=== PATIENT | female | born 1945 | race African-American/Black ===

== ENCOUNTER 2016-09-22 21:05 | Inpatient (IN) | payer OTHER, MEDICARE ==
[~2016-09-22] VITALS: Ht 157.5 cm; Wt 80.7 kg
[~2016-09-22 21:05] MED LIST: AMLODIPINE10 MG PO; CLARITIN10 MG PO; NAPHCON A 0.02515 ML OPH; PEPCID20 MG PO; PREDNISONE 20MG20 MG PO; SIMVASTATIN20 MG PO; [UNRECOGNIZED DRUG - OTHER] PO
--- NOTE | 2016-09-22 21:34 | NUR ---
PT TO ED C/O PALPITATIONS AND LIGHTHEADEDNESS. ONSET 2 HOURS AGO. UPON ARRIVAL PT A+OX4, TAKEN TO 2 FOR TRIAGE. HR 90'S-150'S.
[2016-09-22] MEDS ORDERED: AMLODIPINE BESY10 M1 PO (21:39)
[2016-09-22] MEDS ORDERED: HYDROCHLOROTHIA25 M1 PO (21:39)
[2016-09-22] MEDS ORDERED: SIMVASTATIN20 M2 PO (21:39)
--- NOTE | 2016-09-22 21:48 | ED CARDIAC/CP/PALPITATIONS ---
History of Present Illness General Chief Complaint: General Adult Stated Complaint: WEAKNESS/PALPITATIONS Source: patient Exam Limitations: no limitations Vital Signs & Intake/Output Vital Signs & Intake/Output Vital Signs Date Time Temp Pulse Resp B/P Pulse O2 O2 Flow FiO2 Ox Delivery Rate 09/22 2217 82 130/64 09/22 2199 90 147/67 09/22 2129 97 Room Air 09/22 2122 99 12 147 97 Room Air Allergies Coded Allergies: MDX - Iodine (IODINE) (SWELLING 09/22/16) MDX - Shellfish (SHELLFISH) (SWELLING 09/22/16) Reconcile Medications Amlodipine Besylate (Amlodipine) 10 MG TAB 1 TAB PO DAILY HEART (Reported) Amlodipine Besylate 10 MG TABLET 1 TAB PO DAILY DIRECTED (Reported) Hydrochlorothiazide 25 MG TABLET 1 TAB PO DAILY DIRECTED (Reported) Simvastatin (Zocor) 20 MG TAB 1 TAB PO QPM CHOLESTEROL (Reported) Simvastatin (Simvastatin*) 20 MG TABLET 1 TAB PO QPM DIRECTED (Reported) Triage Note: PT TO ED C/O PALPITATIONS AND LIGHTHEADEDNESS. ONSET 2 HOURS AGO. UPON ARRIVAL PT A+OX4, TAKEN TO [facility] FOR TRIAGE. HR 90'S-150'S. Triage Nurses Notes Reviewed? yes Onset: Abrupt Duration: hour(s): (2), intermittent Timing: recent history Location: central Radiation: no radiation HPI: 71-year-old female comes into emergency room with complaints of intermittent palpitations has been going on for the past few hours. Patient reports that she feels like her heart is beating very fast and irregular and then will go back to normal. Denies any chest pain but has some associated shortness of breath. Denies any fever chills vomiting. Denies any prior cardiac history. Denies any prior symptoms of this in the past. Denies any other associated symptoms. (NURYS FISCHER) Past History Travel History Traveled to [place] past 21 day No Medical History Any Pertinent Medical History? see below for history Neurological: NONE EENT: NONE Cardiovascular: hypertension, hyperlipidemia Respiratory: asthma Gastrointestinal: GERD Hepatic: NONE Renal: NONE Musculoskeletal: SCOLOISIS Psychiatric: NONE Endocrine: NONE Blood Disorders: DVT Cancer(s): NONE SKEIN DYER/Reproductive: NONE Other Medical Hx: Eczema Surgical History Surgical History: SPINAL SURGERY (DVT AFTER Psychosocial History What is your primary language Greek Tobacco Use: Quit >30 days ago ETOH Use: denies use Illicit Drug Use: denies illicit drug use Family History Hx Contributory? No (NURYS FISCHER) Review of Systems Review of Systems Constitutional: Reports: no symptoms. EENTM: Reports: no symptoms. Respiratory: Reports: see HPI. Cardiovascular: Reports: see HPI. GI: Reports: no symptoms. Genitourinary: Reports: no symptoms. Musculoskeletal: Reports: no symptoms. Skin: Reports: no symptoms. Neurological/Psychological: Reports: no symptoms. Hematologic/Endocrine: Reports: no symptoms. Immunologic/Allergic: Reports: no symptoms. All Other Systems: Reviewed and Negative (NURYS FISCHER) Physical Exam Physical Exam General Appearance: well developed/nourished, no apparent distress, alert Head: atraumatic, normal appearance Eyes: Bilateral: normal appearance, EOMI. Ears, Nose, Throat: normal pharynx, normal ENT inspection Neck: normal inspection, full range of motion Respiratory: normal breath sounds, no respiratory distress Cardiovascular: regular rate/rhythm Gastrointestinal: normal bowel sounds Back: normal inspection Extremities: normal inspection Neurologic/Psych: awake, alert, oriented x 3, normal gait, normal mood/affect Skin: intact, normal color Core Measures ACS in differential dx? No Severe Sepsis Present: No Septic Shock Present: No (NURYS FISCHER) Progress Differential Diagnosis: AMI, aortic dissection, atrial fibrillation, cholecystitis, CHF/pulm edema, hyperkalemia, hyperthyroid, myocarditis, pancreatitis, pericarditis, pneumothorax, PSVT, pulmonary embolism, PUD/GERD, PVCs/PACs, respiratory failure, rib fracture, sepsis, unstable angina, V-fib/V- Tach, WPW syndrome Plan of Care: Orders Procedure Date/time Status Patient Data 09/22 2326 Active Add-on Test (ER Only) 09/22 2306 Active Admit to inpatient 09/22 230 Active THYROID STIMULATING HORMONE 09/22 2143 Complete PARTIAL THROMBOPLASTIN TIME 09/22 2143 Complete PROTHROMBIN TIME 09/22 2143 Complete EKG 09/22 2141 Active Telemetry/Driver Guide 09/22 2122 Active TROPONIN LEVEL 09/22 2122 Complete COMPREHENSIVE METABOLIC PANEL 09/22 2122 Complete CBC WITHOUT DIFFERENTIAL 09/22 2122 Complete EKG 09/22 2112 Active Current Medications Sig/Zoila Start time Last Medication Dose Stop Time Status Admin Diltiazem HCl 30 MG ONCE ONE 09/22 2314 UNVr (Cardizem) 09/22 2315 Heparin Sodium 5,000 UNIT ONCE ONE 09/22 2314 UNVr (Porcine) 09/22 2315 (Heparin Bolus) Heparin Sodium 25,000 UNIT Q24H 09/22 2314 UNVr (Porcine) (Heparin) Sodium Chloride 500 ML Laboratory Tests 09/22/162143: Anion Gap 13, Estimated GFR > 60, BUN/Creatinine Ratio 20.0, Glucose 138 H, Calcium 9.3, Total Bilirubin 0.3, AST 28, ALT 27, Alkaline Phosphatase 94, Troponin I < 0.01, Total Protein 7.9, Albumin 4.3, Globulin 3.6, Albumin/ Globulin Ratio 1.2, TSH 0.468, PT 11.6, INR 1.11, APTT 38 H, CBC w Diff NO MAN DIFF REQ, RBC 4.59, MCV 90.7, MCH 29.8, RDW 13.9, MPV 8.6, Gran % 61.1, Lymphocytes % 30.6, Monocytes % 6.2, Eosinophils % 1.6, Basophils % 0.5, Absolute Granulocytes 4.6, Absolute Lymphocytes 2.3, Absolute Monocytes 0.5, Absolute Eosinophils 0.1, Absolute Basophils 0, PUBS MCHC 32.8 L 09/22/162142: TSH Cancelled Initial ED EKG: normal p-waves, normal sinus rhythm, rate (101) Repeat EKG: changed (AFIB, RATE 130) (NURYS FISCHER) Departure Departure Disposition: STILL A PATIENT Condition: Stable Clinical Impression Primary Impression: New onset a-fib Referrals: PATIENT HAS NO PRIMARY CARE DR (PCP) Departure Forms: Customer Survey General Discharge Information Admission Note Spoke With: ARELI PEREZ,ALYCIA Alvarenga Documentation of Exam: Documentation of any treatments & extenuating circumstances including Concerns Regarding Discharge (functional status, medication knowledge or non-compliance, living conditions, etc.) that warrant an admission rather than observation: Patient will require IV heparin. Cardiac telemetry. A cardiac consultation. Consider echocardiogram. New-onset A. fib. Patient was in and out of rapid A. fib on the monitor converting from normal sinus rhythm to rapid A. fib back to normal sinus rhythm. (NURYS FISCHER) PA/OUTSIDE SALES ACCOUNT REPRESENTATIVE Co-Sign Statement Statement: ED Attending supervision documentation- [X] I saw and evaluated the patient. I have also reviewed all the pertinent lab results and diagnostic results. I agree with the findings and the plan of care as documented in the PA's/OUTSIDE SALES ACCOUNT REPRESENTATIVE's documentation. X[X] I have reviewed the ED Record and agree with the PA's/OUTSIDE SALES ACCOUNT REPRESENTATIVE's documentation. [] Additions or exceptions (if any) to the PAs/OUTSIDE SALES ACCOUNT REPRESENTATIVE's note and plan are summarized below: [Patient is having palpitations with paroxysmal atrial fibrillation. Patient to be admitted to cardiology. Patient received IV Cardizem. Patient will require heparin drip.] (SIENA PEREZ,GODWIN Spanglre) Critical Care Note Critical Care Note Critical Care Time: 30-74 min (NURYS FISCHER)
[2016-09-22 21:49] LABS: ABSOLUTE BASOPHIL COUNT 0 /CUMM (0.0-0.2); ABSOLUTE EOSINOPHIL COUNT 0.1 /CUMM (0.0-0.7); ABSOLUTE GRANULOCYTE CT 4.6 /CUMM (1.4-6.5); ABSOLUTE LYMPH COUNT 2.3 /CUMM (1.2-3.4); ABSOLUTE MONOCYTE COUNT 0.5 /CUMM (0.10-0.60); BASOPHIL % 0.5 % (0.0-2.0); EOSINOPHIL % 1.6 % (0-5); GRANULOCYTE % 61.1 % (42.2-75.2); HEMATOCRIT 41.7 % (37-47); MEAN CORPUSCULAR HGB 29.8 PG (27.0-31.0); MEAN CORPUSCULAR HGB CONC 32.8 G/DL (33.0-37.0); MEAN CORPUSCULAR VOLUME 90.7 FL (81.0-99.0); MEAN PLATELET VOLUME 8.6 FL (7.4-10.4); PLATELET COUNT 332 /CUMM (130-400); RBC DISTRIBUTION WIDTH 13.9 % (11.5-14.5); RED BLOOD CELL CT 4.59 /CUMM (4.20-5.40); WHITE BLOOD CELL COUNT 7.5 /CUMM (4.8-10.8)
--- NOTE | 2016-09-22 22:15 | NUR ---
HR 90'S NSR THEN INCREASES TO 140'S-160'S PERIODICALLY THEN RETURNS BACK TO NSR IN HIGH 90'S. 10MG CARDIZEM ADMINISTERED IV. HR NOW IN 70'S-80'S, NSR
[2016-09-22 23:23] LABS: PT 11.6 SEC (9.4-12.5); PTT 38 SEC (25-37)
--- NOTE | 2016-09-22 23:27 | NUR ---
HR REMAINS IN THE 70'S-80'S. PT STATES SHE FEELS MUCH BETTER. NO EPISODES OF AFIB CAPTURED ON BED LABORER SINCE CARDIZEM ADMINISTRATION
--- NOTE | 2016-09-22 23:57 | NUR ---
HEPARIN DRIP STARTED. PT WEIGHED ON STANDING SCALE. MAXES OUT AT 1300 UNITS/HR DRIP RUNNING AT 26.0 ML/HR. NEXT PTT DUE AT 0600
--- NOTE | 2016-09-23 00:01 | History & Physical ---
SHAWNA PEREZ,[facility] [place] 09/23/16 0000: General Information and HPI MD Statement: I have seen and personally examined TATO HENDRIX and documented this H&P. The patient is a 71 year old F who presented with a patient stated chief complaint of palpitations. Source of Information: patient Exam Limitations: no limitations History of Present Illness: Ms. Hendrix is a 71 y/o F with PMHx of HTN, HLD, scoliosis s/p spinal surgery followed by DVT asthma and GERD who presents with palpitations, lightheadedness and SOB of several hours duration. Patient was in her usual state of health when she started feeling lightheaded around 6 PM on the evening of current presentation. This was followed by palpitations, shortness of breath and worsening lightheadedness when she was walking up the stairs in her house. Patient continued to have intermittent episodes of palpitations during which she felt like her heart was "coming out of her chest". Palpitations persisted despite lying in bed and resting. She reports having about 10 episodes of palpitations by the time she was examined in the ED. She denies associated chest pain, abdominal pain, nausea, vomiting or diaphoresis. She denies vision changes or loss of consciousness. Patient denies prior history of atrial fibrillation or arrhythmias although she reports that many years ago she was told by a physician that she has a rapid heart rate. Of note, both of her parents had cardiac disease although she denies personal history. 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 FH: heart disease FATHER, . FH: heart disease Relation not specified for: Patient's father is Psychosocial History Where do you live? Home Who Do You Live With? child Services at Home: None Primary Language: [place] Smoking Status: Former Smoker (Quit 10 Yrs Ago,Smoked <10 Yrs) ETOH Use: denies use Illicit Drug Use: denies illicit drug use Functional Ability ADLs Independent: dressing, eating, toileting, bathing. Ambulation: cane IADLs Independent: shopping, housework, finances, food prep, telephone, transportation , medication admin. 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 EENTM: Reports: no symptoms. Denies: visual changes. Cardiovascular: Reports: palpitations. Denies: chest pain, peripheral edema. Respiratory: Reports: short of breath. GI: Reports: no symptoms. Denies: abdominal pain, nausea, vomiting. Genitourinary: Reports: no symptoms. Musculoskeletal: Reports: joint pain (chronic from arthritis). Skin: Reports: no symptoms. Neurological/Psychological: Reports: no symptoms. Denies: weakness. Hematologic/Endocrine: Reports: no symptoms. Immunologic/Allergic: Reports: no symptoms. All Other Systems: Reviewed and Negative Exam & Diagnostic Data Last 24 Hrs of Vital Signs/I&O Vital Signs Date Time Temp Pulse Resp B/P Pulse O2 O2 Flow FiO2 Ox Delivery Rate 09/23 0200 98.5 66 18 120/68 96 Room Air 09/23 0158 Room Air 09/23 0031 72 131/67 09/23 0018 99.1 72 18 131/67 96 Room Air 09/22 2325 70 12 126/60 98 Room Air 09/22 2218 82 130/64 09/22 2200 90 147/67 09/22 2130 97 Room Air 09/22 2123 99 12 147/67 97 Room Air Intake & Output 09/23 0800 09/23 0000 09/22 1600 Intake Total 498 0 Output Total Balance 498 0 Intake, IV 258 Intake, Oral 240 0 Patient 80.739 kg 77.111 kg Weight Physical Exam General Appearance Alert, Oriented X3, No Acute Distress Skin No Rashes HEENT PERRLA, Mucous Membr. moist/pink, Oropharynx Clear Without Lesions Neck No JVD Cardiovascular Irregular Rhythm Lungs Clear to Auscultation Abdomen Soft, No Tenderness, Nondistended, Positive Bowel Sounds Neurological No Gross Focal Deficits Noted Extremities No Clubbing, No Cyanosis, No Edema Vascular Normal Pulses, Pulses Symmetrical Last 24 Hrs of Labs/Dave: Laboratory Tests 09/23/16 0545: APTT Pending 09/23/16 0515: Troponin I 0.01 09/22/164: Anion Gap 13, Estimated GFR > 60, BUN/Creatinine Ratio 20.0, Glucose 138 H, Calcium 9.3, Magnesium 1.4 L, Total Bilirubin 0.3, AST 28, ALT 27, Alkaline Phosphatase 94, Troponin I < 0.01, Total Protein 7.9, Albumin 4.3, Globulin 3.6, Albumin/Globulin Ratio 1.2, TSH 0.468, Free T4 1.24, PT 11.6, INR 1.11, APTT 38 H, CBC w Diff NO MAN DIFF REQ, RBC 4.59, MCV 90.7, MCH 29.8, RDW 13.9, MPV 8.6, Gran % 61.1, Lymphocytes % 30.6, Monocytes % 6.2, Eosinophils % 1.6, Basophils % 0.5, Absolute Granulocytes 4.6, Absolute Lymphocytes 2.3, Absolute Monocytes 0.5 , Absolute Eosinophils 0.1, Absolute Basophils 0, PUBS MCHC 32.8 L 09/22/162142: TSH Cancelled Diagnostic Data EKG Results Initial EKG: NSR HR 101 Repeat EKG: Atrial fibrillation HR 130 CXR Results Nonspecific streaky opacification at the right lung base which I favor to represent atelectasis. Mild nonspecific interstitial prominence throughout both lungs. Assessment/Plan Assessment: Ms. Hendrix is a 71 y/o F with PMHx of HTN, HLD and scoliosis s/p spinal surgery followed by DVT who presents with new-onset atrial fibrillation. #New-onset atrial fibrillation: No prior history of atrial fibrillation although she has been told by a physician in the past that she has rapid heartbeat. Initial EKG in the ED with NSR but went into atrial fibrillation as demonstrated by repeat EKG. Converted back to NSR with 10 mg of IV Cardizem and 30 mg of PO Cardizem with no further episodes of atrial fibrillation. * Give Cardizem if patient enters Afib again. * Heparin IV started. * ECHO ordered to evaluate for structural abnormalities. * Serial troponins and EKG. * Attending Dr. Weaver to see patient in the AM. * Check TSH and free T4. #HLD: Takes simvastatin 20 mg PO QHS. * Started atorvastatin 20 mg PO QD. #HTN: Takes amlodipine 10 mg PO QD. * Holding [id number] anti-hypertensive as patient is normotensive on admission. Consider re-starting if BP tolerates. Diet: Consistent Carbohydrate Lytes: Replete to K > 4 and Mg > 2 DVT PPx: Heparin IV and ALPs CODE: FULL As Ranked By This Provider Problem List: 1. New onset a-fib 2. HTN (hypertension) 3. HLD (hyperlipidemia) Core Measures/Miscellaneous Acute Coronary Syndrome ACS Diagnosis: No Cerebrovascular Accident CVA/TIA Diagnosis: No Congestive Heart Failure CHF Diagnosis: No Venous Thromboembolism VTE Risk Factors: Acute medical illness, Age > 40, Obesity VTE Prophylaxis Ordered Inpt: Mech & Pharm No Mech VTE prophylaxis d/t: No contraindications No VTE Pharm Prophylaxis d/t: No contraindications VTE Diagnosis: No VTE Type: NONE VTE Confirmed by (Test): NONE Severe Sepsis Severe Sepsis Present: No Septic Shock Septic Shock Present: No Miscellaneous Documentation Attending Case Discussed With: Alycia Weaver MD Primary Care Physician: PCP in [place] Patient sees these Specialists None Level of Patient Care: Telemetry JANENE LIN MD 09/23/16 0420: Resident Review Statement Resident Statement: examined this patient, discussed with pharmacy grad intern, agreed with pharmacy grad intern Other Findings: 71 YO F with pmh significant for htn, hld, asthma, gerd, scoliosis present to the ER c/o weakness and palpitations that started several hours prior to admission. She reports feeling her heart beating irregularly and fast. It would then revert back to normal. Feels short of breath when this occurs. Denies prior episodes in the recent past however states that this has happened several years ago. She denies cp, lightheadeness, nausea, vomiting. EKG demonstrates rhythm switch from NSR to AF. She has been started on IV heparin, we will continue this while monitoring cbc. She received cardizem 10mg IV and cardizem 30mg PO. We will get an echocardiogram, and check TSH, T4. Monitor electrolytes closely, keep K >4 and Mg >2. Will trend ekgs, and troponins. Heart Healthy ARELI jimenes MD,ALYCIA 09/27/16 1002: General Information and HPI Allergies/Medications Home Med list Magnesium Oxide 400 MG TABLET 1 TAB PO DAILY heart lg Attending MD Review Statement Attending Statement Attending Statement: examined this patient, discuss w/resident/PA/BLACK BELT Attending Assessment/Plan: Agree with Loom Inspector/Resident assessment. See Cardiology consult note. Cristal Weaver M.D.
--- NOTE | 2016-09-23 00:32 | NUR ---
HOOUSE STAFF HERE TO EVAL AND ENTER ADMIT ORDERS.
--- NOTE | 2016-09-23 00:50 | NUR ---
CM = NSR 70-80
--- NOTE | 2016-09-23 01:14 | NUR ---
REPORT CALLED TO REGINA ROLLINS
--- NOTE | 2016-09-23 01:35 | RADIOLOGY REPORT ---
EXAMINATION: CHEST 1 VIEW CLINICAL INFORMATION: Atrial fibrillation. COMPARISON: None. TECHNIQUE: An AP view of the chest is provided. FINDINGS: The cardiac silhouette is within normal limits in consideration of the AP technique. There is streaky opacification at the right lung base. There is mild interstitial prominence present throughout both lungs. Posterior spinal fusion hardware is identified. There is moderate thoracic S-shaped scoliosis. IMPRESSION: Nonspecific streaky opacification at the right lung base which I favor to represent atelectasis. Mild nonspecific interstitial prominence throughout both lungs.
[2016-09-23 02:00] VITALS: BP 120/68
--- NOTE | 2016-09-23 02:29 | NUR ---
REPORT RECIEVED FROM ED NURSE KETURAH. PT ARRIVED TO UNIT VIA STRETCHER WITH HEPARIN GTT RUNNING AT 26.0ML/HR. NO S/S DISTRESS NOTED. PT ORIENTED TO ROOM AND CALL KAY.
[2016-09-23 06:25] LABS: PTT > 120 SEC (25-37)
[2016-09-23 08:17] VITALS: BP 130/76
--- NOTE | 2016-09-23 10:32 | PN- Housestaff ---
Subjective Follow-up For: New onset atrial fibrillation Tele-Events Since Last Visit: Sinus rhythm, sinus bradycardia Heart rate 57-69 Subjective: Patient was seen and examined this morning, no overnight events reported by the patient or the nurses. No acute distress. Patient reported dizziness while she is laying on the bed, denied any chest pain, palpitation, shortness of breath, nausea or vomiting, headache, blurry vision Review of Systems Constitutional: Reports: see HPI. Objective Last 24 Hrs of Vital Signs/I&O Vital Signs Date Time Temp Pulse Resp B/P Pulse O2 O2 Flow FiO2 Ox Delivery Rate 09/23 0817 98.4 62 18 130/76 94 Room Air 09/23 0200 98.5 66 18 120/68 96 Room Air 09/23 0158 Room Air 09/23 0031 72 131/67 09/23 0018 99.1 72 18 131/67 96 Room Air 09/22 2325 70 12 126/60 98 Room Air 09/22 2218 82 130/64 09/22 2200 90 147/67 09/22 2130 97 Room Air 09/22 2123 99 12 147/67 97 Room Air Intake & Output 09/23 1600 09/23 0800 09/23 0000 Intake Total 498 0 Output Total Balance 498 0 Intake, IV 258 Intake, Oral 240 0 Patient 80.739 kg 77.111 kg Weight Physical Exam General Appearance: Alert, Oriented X3, Cooperative, No Acute Distress Skin: No Rashes, No Breakdown, No Significant Lesion HEENT: Atraumatic, PERRLA, EOMI, Mucous Membr. moist/pink Neck: Supple Cardiovascular: Regular Rate, Normal S1, Normal S2, systolic click Lungs: Clear to Auscultation, Normal Air Movement Abdomen: Normal Bowel Sounds, Soft, No Tenderness Neurological: Normal Speech, Strength at 5/5 X4 Ext, Normal Tone, Sensation Intact, Cranial Nerves 3-12 NL, Reflexes 2+ Extremities: No Clubbing, No Cyanosis, No Edema, Normal Pulses Assessment/Plan Assessment: Ms. Lozano is a 71 y/o F with PMHx of HTN, HLD and scoliosis s/p spinal surgery followed by DVT who presents with new-onset atrial fibrillation. #New-onset atrial fibrillation: No prior history of atrial fibrillation although she has been told by a physician in the past that she has rapid heartbeat. Initial EKG in the ED with NSR but went into atrial fibrillation as demonstrated by repeat EKG. Converted back to NSR with 10 mg of IV Cardizem and 30 mg of PO Cardizem with no further episodes of atrial fibrillation. * Patient continue to have sinus rhythm on monitor * Repeat EKG * Continue Heparin IV * Follow up echo cardiogram for structural abnormalities. * Serial troponins and EKG negative * Obtain Orthostatic measurement #HLD: * Continue atorvastatin 20 mg PO QD. #HTN: Takes amlodipine 10 mg PO QD. * Holding [id number] anti-hypertensive as patient is normotensive on admission. Consider re-starting if BP tolerates. Diet: Consistent Carbohydrate Lytes: Replete to K > 4 and Mg > 2 DVT PPx: Heparin IV and ALPs CODE: FULL Problem List: 1. HTN (hypertension) 2. HLD (hyperlipidemia) 3. New onset a-fib Pain Ratin Pain Location: N/A Pain Goal: Pain 4 or less Pain Plan: mild pain pathway Tomorrow's Labs & Rationales: CMP
--- NOTE | 2016-09-23 11:32 | Cons- Cardiology ---
General Information and HPI Consulting Request Date of Consult: 09/23/16 Requested By: HOSPITALIST SERVICE. Reason for Consult: Paroxysmal atrial fibrillation Source of Information: patient, old records Exam Limitations: no limitations History of Present Illness: The patient is a 71-year-old -[place] female who has a past history of hypertension and dyslipidemia for which she is on medications. She's never had any arrhythmias that she is aware of. She's never had any cardiac conditionS or seen a combat control manager in the past. Her primary care physician is currently in the [place]. Yesterday she began noticing palpitations which occurred intermittently where her heart felt like it was beating "very fast" she also had some dizziness associated with this. The symptoms came and went and she finally came to the emergency room. In the emergency room she was noted to have paroxysmal atrial fibrillation where she would have fairly rapid atrial fibrillation and then would convert back to sinus rhythm. She was given some Cardizem and her rhythm seemed to stabilize. Currently she is on no antiarrhythmics. She was started on IV heparin. Her magnesium was slightly low at 1.4 and this has been repleted. Her thyroid function screening was normal. The patient is an ex-smoker. She has no other major underlying medical issues. Allergies/Medications Allergies: Coded Allergies: iodine (Intermediate, SWELLING 09/22/16) shellfish derived (Intermediate, SWELLING 09/22/16) Home Med List: Amlodipine Besylate (Amlodipine) 10 MG TAB 1 TAB PO DAILY HEART (Reported) Amlodipine Besylate 10 MG TABLET 1 TAB PO DAILY DIRECTED (Reported) Hydrochlorothiazide 25 MG TABLET 1 TAB PO DAILY DIRECTED (Reported) Simvastatin (Zocor) 20 MG TAB 1 TAB PO QPM CHOLESTEROL (Reported) Simvastatin (Simvastatin*) 20 MG TABLET 1 TAB PO QPM DIRECTED (Reported) Current Medications: Current Medications Sig/Zoila Start time Last Medication Dose Route Stop Time Status Admin Atorvastatin Calcium 20 MG 1700 09/23 1700 AC PO Diltiazem HCl 30 MG ONCE ONE 09/22 2315 DC 09/23 PO 09/22 2316 0031 Diltiazem HCl 10 MG ONCE ONE 09/22 2199 DC 09/22 IV PUSH 09/22 Diltiazem HCl 0 .STK-MED ONE 09/22 2199 DC .ROUTE Heparin Sodium 0 .STK-MED ONE 09/22 2331 DC (Porcine) .ROUTE Heparin Sodium 5,000 UNIT ONCE ONE 09/22 2315 DC 09/22 (Porcine) IV 09/22 231 2352 Heparin Sodium 25,000 UNIT Q24H 09/22 231 AC 09/22 (Porcine) IV 2352 Sodium Chloride 500 ML Magnesium Oxide 400 MG ONE ONE 09/27 0500 AC PO 09/27 0501 Magnesium Oxide 400 MG ONE ONE 09/23 0300 DC 09/23 PO 09/23 0301 0323 Magnesium Sulfate 1 GM ONCE ONE 09/23 0445 DC 09/23 Dextrose/Water 100 ML IV 09/23 0644 0519 Potassium Chloride 60 MEQ ONCE ONE 09/23 0445 DC 09/23 PO 09/23 0446 0522 Review of Systems Review of Systems: She has no complaints in the review of systems aside from the present complaint. Past History Travel History Traveled to [place] past 21 day No Medical History Blood Transfusion Hx: No Neurological: NONE EENT: NONE Cardiovascular: hypertension, hyperlipidemia Respiratory: asthma Gastrointestinal: GERD Hepatic: NONE Renal: NONE Musculoskeletal: scoliosis Psychiatric: NONE Endocrine: NONE Blood Disorders: DVT Cancer(s): NONE COUNTER HELP/Reproductive: NONE Other Medical Hx: Eczema Surgical History Surgical History: spinal surgery hiatal hernia repair Family History Relations & Conditions If Any: MOTHER, . FH: heart disease FATHER, . FH: heart disease Relation not specified for: Patient's father is Psychosocial History Where Do You Live? Home Who Do You Live With? child Services at Home: None Primary Language: Greenlandic Smoking Status: Former Smoker (Quit 10 Yrs Ago,Smoked <10 Yrs) ETOH Use: denies use Illicit Drug Use: denies illicit drug use Functional Ability ADLs Independent: dressing, eating, toileting, bathing. Ambulation: cane IADLs Independent: shopping, housework, finances, food prep, telephone, transportation , medication admin. 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 Exam & Diagnostic Data Vital Signs and I&O Vital Signs Date Time Temp Pulse Resp B/P Pulse O2 O2 Flow FiO2 Ox Delivery Rate 09/23 08 98.4 62 18 130/76 94 Room Air 09/23 0200 98.5 66 18 120/68 96 Room Air 09/23 0158 Room Air 09/23 0031 72 131/67 09/23 0018 99.1 72 18 131/67 96 Room Air 09/225 70 12 126/60 98 Room Air 09/22 2217 82 130/64 09/22 2199 90 147/67 09/22 2129 97 Room Air 09/22 2122 99 12 97 Room Air Intake & Output 09/23 0000 09/22 0809/22 0000 Intake Total 498 0 Output Total Balance 498 0 Intake, IV 258 Intake, Oral 240 0 Patient 178 lb 170 lb Weight Physical Exam: On physical exam she is a late middle-aged female slightly overweight in no acute distress HEENT exam is normal Neck veins are not distended Carotids are normal Chest is clear Heart reveals regular rhythm with no murmurs gallops or rubs Abdomen is benign Extremities reveal good pulses and no edema Labs/Dave Results: Laboratory Tests 09/23 09/23 09/23 1030 0545 0515 Chemistry Troponin I (< 0.11 ng/ml) Cancelled 0.01 Coagulation APTT (25 - 37 SEC) > 120 *H 09/22 09/22 2144 2143 Chemistry Sodium (137 - 145 mmol/L) 142 Potassium (3.5 - 5.1 mmol/L) 3.5 Chloride (98 - 107 mmol/L) 104 Carbon Dioxide (22 - 30 mmol/L) 25 Anion Gap (5 - 16) 13 BUN (7 - 17 mg/dL) 12 Creatinine (0.5 - 1.0 mg/dL) 0.6 Estimated GFR (>60 ml/min) > 60 BUN/Creatinine Ratio (7 - 25 %) 20.0 Glucose (65 - 99 mg/dL) 138 H Calcium (8.4 - 10.2 mg/dL) 9.3 Magnesium (1.6 - 2.3 mg/dL) 1.4 L Total Bilirubin (0.2 - 1.3 mg/dL) 0.3 AST (14 - 36 U/L) 28 ALT (9 - 52 U/L) 27 Alkaline Phosphatase (<127 U/L) 94 Troponin I (< 0.11 ng/ml) < 0.01 Total Protein (6.3 - 8.2 g/dL) 7.9 Albumin (3.5 - 5.0 g/dL) 4.3 Globulin (1.9 - 4.2 gm/dL) 3.6 Albumin/Globulin Ratio (1.1 - 2.2 %) 1.2 TSH (0.270 - 4.200 uIU/mL) 0.468 Cancelled Free T4 (0.78 - 2.44 ng/dL) 1.24 Coagulation PT (9.4 - 12.5 SEC) 11.6 INR (0.90 - 1.19) 1.11 APTT (25 - 37 SEC) 38 H Hematology CBC w Diff NO MAN DIFF REQ WBC (4.8 - 10.8 /CUMM) 7.5 RBC (4.20 - 5.40 /CUMM) 4.59 Hgb (12.0 - 16.0 G/DL) 13.7 Hct (37 - 47 %) 41.7 MCV (81.0 - 99.0 FL) 90.7 MCH (27.0 - 31.0 PG) 29.8 RDW (11.5 - 14.5 %) 13.9 Plt Count (130 - 400 /CUMM) 332 MPV (7.4 - 10.4 FL) 8.6 Gran % (42.2 - 75.2 %) 61.1 Lymphocytes % (20.5 - 51.1 %) 30.6 Monocytes % (1.7 - 9.3 %) 6.2 Eosinophils % (0 - 5 %) 1.6 Basophils % (0.0 - 2.0 %) 0.5 Absolute Granulocytes (1.4 - 6.5 /CUMM) 4.6 Absolute Lymphocytes (1.2 - 3.4 /CUMM) 2.3 Absolute Monocytes (0.10 - 0.60 /CUMM) 0.5 Absolute Eosinophils (0.0 - 0.7 /CUMM) 0.1 Absolute Basophils (0.0 - 0.2 /CUMM) 0 PUBS MCHC (33.0 - 37.0 G/DL) 32.8 L Diagnostic Data EKG Results Initial electrocardiogram on 09/22/2016 at 2112 showed sinus rhythm and sinus tachycardia with a short period of atrial fibrillation. There is an incomplete right bundle branch block pattern. Repeat EKG at 21:45 hrs. showed atrial fibrillation/flutter at a rate of 130 with an incomplete right bundle branch block pattern. CXR Results PATIENT: TATO HENDRIX PRESENT AGE: 71 PATIENT ACCOUNT NO: [id number] : 47 LOCATION: [facility] ORDERING PHYSICIAN: PILAR MATOS MD SERVICE DATE: 09/23/16 EXAM TYPE: RAD - XRY-PORTABLE CHEST XRAY EXAMINATION: CHEST 1 VIEW CLINICAL INFORMATION: Atrial fibrillation. COMPARISON: None. TECHNIQUE: An AP view of the chest is provided. FINDINGS: The cardiac silhouette is within normal limits in consideration of the AP technique. There is streaky opacification at the right lung base. There is mild interstitial prominence present throughout both lungs. Posterior spinal fusion hardware is identified. There is moderate thoracic S-shaped scoliosis. IMPRESSION: Nonspecific streaky opacification at the right lung base which I favor to represent atelectasis. Mild nonspecific interstitial prominence throughout both lungs. DICTATED BY: JAIR BERGERON MD DATE/TIME DICTATED:09/23/16130 NEWS ASSIGNMENT EDITOR:BARAK DATE/TIME TRANSCRIBED:09/23/16130 CONFIDENTIAL, DO NOT COPY WITHOUT APPROPRIATE AUTHORIZATION. <Electronically signed in Other Vendor System> SIGNED BY: JAIR BERGERON MD 09/23/16134 Assessment/Plan Assessment/Plan This patient developed paroxysmal atrial fibrillation at home which was documented here in the emergency department. After being treated with some Cardizem her atrial fibrillation resolved and has not yet recurred. She remains in sinus rhythm and sinus bradycardia on the monitor. Her EKG shows incomplete right bundle branch block and some nonspecific changes but nothing acute. She has 2 negative troponins. She has no complaints of chest pain and there is no indication of ischemic disease. I recommend an echocardiogram which is pending. I would just watch her on the monitor for now. I would keep her on IV heparin for now. She may not need permanent anticoagulation as the duration of her atrial fibrillation seemed to be short. However we will let the echocardiogram help us with that decision. I will review the echo and the follow-up EKG and have further recommendations at that time. Consult Acknowledgment - Thank you for your consult request.
[2016-09-23 14:15] LABS: PTT > 120 SEC (25-37)
[2016-09-23 16:00] VITALS: BP 132/84
[2016-09-23 22:16] LABS: PTT > 120 SEC (25-37)
[2016-09-23 23:00] VITALS: BP 128/60
[2016-09-24 08:17] LABS: PTT 92 SEC (25-37)
[2016-09-24 08:22] VITALS: BP 134/72
--- NOTE | 2016-09-24 09:11 | PN- Cardiology ---
Subjective Subjective: The patient is feeling well. She remains in sinus rhythm. There's been no further episodes of atrial fibrillation. She remains on IV heparin. Her echocardiogram is pending at this time. Objective Vital Signs and I&Os Vital Signs Date Time Temp Pulse Resp B/P Pulse O2 O2 Flow FiO2 Ox Delivery Rate 09/24 08 98.2 68 18 134/72 97 Room Air 09/23 2300 98.0 56 18 128/60 95 Room Air 09/23 1600 98.6 60 20 132/84 96 Room Air Intake & Output 09/24 1600 09/24 0800 09/24 0000 09/23 1600 09/23 0800 09/23 0000 Intake Total 368 556 498 0 Output Total Balance 368 556 498 0 Intake, IV 128 156 258 Intake, Oral 240 400 240 0 Patient 178 lb 170 lb Weight Physical Exam: On physical examination she is comfortable and in no distress. HEENT exam is normal Neck veins not distended Carotids are normal Chest is clear Heart reveals regular rhythm and no murmurs Current Medications: Current Medications Sig/Zoila Start time Last Medication Dose Route Stop Time Status Admin Atorvastatin Calcium 20 MG 1700 09/23 1700 AC 09/23 PO 1729 Heparin Sodium 25,000 UNIT Q24H 09/22 2315 AC 09/22 (Porcine) IV 2352 Sodium Chloride 500 ML Magnesium Oxide 400 MG ONE ONE 09/27 0500 AC PO 09/27 0501 Results Last 48 Hrs of Labs/Mics: Laboratory Tests 09/24/16 0705: Anion Gap 9, Estimated GFR > 60, BUN/Creatinine Ratio 14.3, APTT 92 H 09/23/16 2130: APTT > 120 *H 09/23/16 1230: Troponin I < 0.01, APTT > 120 *H 09/23/16 1030: Troponin I Cancelled 09/23/16 0545: APTT > 120 *H 09/23/16 0515: Troponin I 0.01 09/22/16 2144: Anion Gap 13, Estimated GFR > 60, BUN/Creatinine Ratio 20.0, Glucose 138 H, Calcium 9.3, Magnesium 1.4 L, Total Bilirubin 0.3, AST 28, ALT 27, Alkaline Phosphatase 94, Troponin I < 0.01, Total Protein 7.9, Albumin 4.3, Globulin 3.6, Albumin/Globulin Ratio 1.2, TSH 0.468, Free T4 1.24, PT 11.6, INR 1.11, APTT 38 H, CBC w Diff NO MAN DIFF REQ, RBC 4.59, MCV 90.7, MCH 29.8, RDW 13.9, MPV 8.6, Gran % 61.1, Lymphocytes % 30.6, Monocytes % 6.2, Eosinophils % 1.6, Basophils % 0.5, Absolute Granulocytes 4.6, Absolute Lymphocytes 2.3, Absolute Monocytes 0.5 , Absolute Eosinophils 0.1, Absolute Basophils 0, PUBS MCHC 32.8 L 09/22/16 2143: TSH Cancelled Recent Imaging Studies: CONCLUSIONS Left ventricular wall thickness at upper limits of normal. Normal left ventricular ejection fraction visually estimated at >60 Normal left ventricular diastolic filling pattern for age. The left atrium is normal in size. Mild thickening/calcification of the mitral valve leaflets. Trace to mild mitral regurgitation. Focal thickening of the aortic valve cusps. No aortic stenosis. Right ventricular systolic pressure estimated to be mildly elevated at 40 mmHg. Vitor Weaver M.D. (Electronically Signed) Final Date: 24 September 2016 12:15 Assessment/Plan Assessment/Plan The patient has maintained sinus rhythm for basically 2 days. She is actually on no antiarrhythmic drugs. Her echocardiogram showed no major abnormalities, just some mild age-related changes. I think the patient can be discharged on no anticoagulant and no other medications at this time except for magnesium supplementation. I will follow her up in the office. Continue telemetry? No
--- NOTE | 2016-09-24 10:31 | PN- Housestaff ---
Subjective Follow-up For: New onset atrial fibrillation Tele-Events Since Last Visit: Sinus rhythm with heart rate 53-87 No overnight events Subjective: Patient was seen and examined this morning, no overnight events reported by the patient or the nurses. No acute distress, vital signs are stable. Review of Systems Constitutional: Reports: no symptoms. Objective Last 24 Hrs of Vital Signs/I&O Vital Signs Date Time Temp Pulse Resp B/P Pulse O2 O2 Flow FiO2 Ox Delivery Rate 09/24 0822 98.2 68 18 134/72 97 Room Air 09/23 2300 98.0 56 18 128/60 95 Room Air Intake & Output 09/24 1600 09/24 0800 09/24 0000 Intake Total 368 556 Output Total Balance 368 556 Intake, IV 128 156 Intake, Oral 240 400 Physical Exam General Appearance: Alert, Oriented X3, Cooperative, No Acute Distress Skin: No Rashes, No Breakdown, No Significant Lesion Cardiovascular: Regular Rate, Normal S1, Normal S2, No Murmurs Lungs: Clear to Auscultation, Normal Air Movement Abdomen: Normal Bowel Sounds, Soft, No Tenderness Neurological: Normal Gait, Normal Speech, Strength at 5/5 X4 Ext, Normal Tone, Sensation Intact, Cranial Nerves 3-12 NL, Reflexes 2+ Extremities: No Clubbing, No Cyanosis, No Edema, Normal Pulses Vascular: Normal Pulses Assessment/Plan Assessment: Ms. Lozano is a 71 y/o F with PMHx of HTN, HLD and scoliosis s/p spinal surgery followed by DVT who presents with new-onset atrial fibrillation. #New-onset atrial fibrillation: No prior history of atrial fibrillation although she has been told by a physician in the past that she has rapid heartbeat. Initial EKG in the ED with NSR but went into atrial fibrillation as demonstrated by repeat EKG. Converted back to NSR with 10 mg of IV Cardizem and 30 mg of PO Cardizem with no further episodes of atrial fibrillation. * Patient continue to have sinus rhythm on monitor * Patient continue to be on sinus rhythm for 2 days * Discontinue heparin IV * Echocardiogram Left ventricular wall thickness at upper limits of normal. Normal left ventricular ejection fraction visually estimated at >60 Normal left ventricular diastolic filling pattern for age. The left atrium is normal in size. Mild thickening/calcification of the mitral valve leaflets. Trace to mild mitral regurgitation. Focal thickening of the aortic valve cusps. No aortic stenosis. Right ventricular systolic pressure estimated to be mildly elevated at 40 mmHg. * Serial troponins and EKG negative * Obtain Orthostatic measurement * Patient is for discharge today, will discontinue all medication except for mg supplementation #HLD: * Discontinue atorvastatin 20 mg PO QD. #HTN: Takes amlodipine 10 mg PO QD. * Holding [id number] anti-hypertensive as patient is normotensive on admission. Consider re-starting if BP tolerates. Diet: Consistent Carbohydrate Lytes: Replete to K > 4 and Mg > 2 DVT PPx: DC heparin IV, ALPS CODE: FULL Problem List: 1. New onset a-fib Pain Ratin Pain Location: N/A Pain Goal: Pain 4 or less Pain Plan: Mild pain pathway Tomorrow's Labs & Rationales: Patient is for DC
--- NOTE | 2016-09-24 12:16 | ECHOCARDIOGRAM REPORT ---
TATO HENDRIX Age: 71 : 1945 Gender: F Exam Date: 09/24/2016 10:18 Exam Location: 1 [address] Ht (in): 62 Wt (lb): 170 BSA: 1.87 BP: 130 / 76 Ordering Physician: JANENE LIN MD Referring Physician: JANENE LIN MD Technologist: Nadeem Dukes [facility] Room Number: Indications: AFIB/FLUTTER Rhythm: Sinus Technical Quality: Good FINDINGS Left Ventricle Normal size left ventricle. Left ventricular wall thickness at upper limits of normal. Normal left ventricular ejection fraction visually estimated at >60 %. Normal left ventricular diastolic filling pattern for age. Right Ventricle The right ventricle is normal in size and function. Right Atrium The right atrium is normal in size. Left Atrium The left atrium is normal in size. The interatrial septum is intact. Mitral Valve Mild thickening/calcification of the mitral valve leaflets. Trace to mild mitral regurgitation. Aortic Valve Focal thickening of the aortic valve cusps. No aortic stenosis. No aortic regurgitation. Tricuspid Valve Structurally normal tricuspid valve. Trace to mild tricuspid regurgitation. Right ventricular systolic pressure estimated to be mildly elevated at 40 mmHg. Pulmonic Valve Structurally normal pulmonic valve. There is pulmonic regurgitation. Pericardium Normal pericardium without effusion. No pleural effusion. Great Vessels Normal aortic root dimension. The aortic arch and great vessels are well seen and are normal. CONCLUSIONS Left ventricular wall thickness at upper limits of normal. Normal left ventricular ejection fraction visually estimated at >60 Normal left ventricular diastolic filling pattern for age. The left atrium is normal in size. Mild thickening/calcification of the mitral valve leaflets. Trace to mild mitral regurgitation. Focal thickening of the aortic valve cusps. No aortic stenosis. Right ventricular systolic pressure estimated to be mildly elevated at 40 mmHg. Vitor Weaver M.D. (Electronically Signed) Final Date: 24 September 2016 12:15 MEASUREMENTS (Male / Female) Normal Values 2D ECHO LV Diastolic Diameter PLAX 3.3 cm 4.2 - 5.9 / 3.9 - 5.3 cm LV Systolic Diameter PLAX 2.2 cm 2.1 - 4.0 cm LV Fractional Shortening PLAX 33.3 % 25 - 46 % LV Ejection Fraction 2D Teich 63.3 % IVS Diastolic Thickness 1.1 cm LVPW Diastolic Thickness 1.0 cm LV Relative Wall Thickness 0.6 RV Internal Dim ED PLAX 2.3 cm 1.9 - 3.8 cm LVOT Diameter 1.7 cm Aortic Root Diameter 2.4 cm LA Systolic Diameter LX 2.8 cm 3.0 - 4.0 / 2.7 - 3.8 cm LA Volume 39.0 cm 18 - 58 / 22 - 52 cm Ascending Aorta Diameter 3.0 cm DOPPLER AV Peak Velocity 137.0 cm/s AV Peak Gradient 7.5 mmHg AV Mean Velocity 101.0 cm/s AV Mean Gradient 5.0 mmHg AV Velocity Time Integral 34.6 cm LVOT Peak Velocity 113.0 cm/s LVOT Peak Gradient 5.1 mmHg LVOT Mean Velocity 67.5 cm/s LVOT Mean Gradient 2.0 mmHg LVOT Velocity Time Integral 29.7 cm LVOT Stroke Volume 67.4 cm AV Area Cont Eq vti 1.9 cm AV Area Cont Eq pk 1.9 cm MV Peak Velocity 109.0 cm/s MV Peak Gradient 4.8 mmHg MV Mean Velocity 66.0 cm/s MV Mean Gradient 2.0 mmHg Mitral E Point Velocity 64.2 cm/s Mitral A Point Velocity 72.1 cm/s Mitral E to A Ratio 0.9 MV PHT Velocity 107.0 cm/s MV Deceleration Amite 315.0 cm/s MV Pressure Half Time 101.9 ms MV Area PHT 2.2 cm MV Deceleration Time 232.0 ms TR Peak Velocity 299.0 cm/s TR Peak Gradient 35.8 mmHg Right Atrial Pressure 5.0 mmHg Pulmonary Artery Systolic Pressu 40.8 mmHg Right Ventricular Systolic Press 40.8 mmHg PV Peak Velocity 113.0 cm/s PV Peak Gradient 5.1 mmHg PV Mean Velocity 79.4 cm/s PV Mean Gradient 3.0 mmHg PV Velocity Time Integral 29.6 cm LV E' Lateral Velocity 12.3 cm/s Mitral E to LV E' Lateral Ratio 5.2 LV E' Septal Velocity 12.2 cm/s Mitral E to LV E' Septal Ratio 5.3
[2016-09-24] MEDS ORDERED: MAGNESIUM OXID400 M1 PO (13:27)
--- NOTE | 2016-09-24 13:30 | Patient Discharge Instructions ---
Discharge Instructions General Discharge Information Special Instructions: Please follow-up with your PCP within 1 week after discharge Please follow up with Dr. Weaver prenatal teacher within 2 weeks after discharge Acute Coronary Syndrome Inclusion Criteria At DC or during hospital stay patient has or had the following: ACS DIAGNOSIS No Discharge Core Measures Meds if any: Prescribed or Continued at Discharge Meds if any: NOT Prescribed or Continued at Discharge Congestive Heart Failure Inclusion Criteria At DC or during hospital stay patient has or had the following: CHF DIAGNOSIS No Discharge Core Measures Meds if any: Prescribed or Continued at Discharge Meds if any: NOT Prescribed or Continued at Discharge Cerebrovascular accident Inclusion Criteria At DC or during hospital stay patient has or had the following: CVA/TIA Diagnosis No Discharge Core Measures Meds if any: Prescribed or Continued at Discharge Meds if any: NOT Prescribed or Continued at Discharge Venous thromboembolism Inclusion Criteria VTE Diagnosis No VTE Type NONE VTE Confirmed by (Test) NONE Discharge Core Measures - Per Current guidelines, there needs to be overlap - treatment for the first 5 days of Warfarin therapy. - If discharged on Warfarin prior to 5 days of - overlap therapy, the patient will need to be - assessed for post discharge needs including - *Post discharge parental anticoagulation - *Warfarin and/or parental anticoagulation education - *Follow up date to check INR post discharge At least 5 days overlap therapy as Inpatient Yes Meds if any: Prescribed or Continued at Discharge Note: Overlap Therapy is Warfarin and Anticoagulant Meds if any: NOT Prescribed or Continued at Discharge
--- NOTE | 2016-09-24 17:32 | Discharge Summary ---
Visit Information Visit Dates Admission Date: 09/22/16 Discharge Date: 09/24/16 Hospital Course Course Attending Physician: ALYCIA WEAVER MD, V. Primary Care Physician: PATIENT HAS NO PRIMARY CARE DR Hospital Course: Ms. Lozano is a 71 y/o F with PMHx of HTN, HLD, scoliosis s/p spinal surgery followed by DVT, asthma and GERD who presents with palpitations, lightheadedness and SOB of several hours duration on day of admission. Patient was admitted to telemetery floor for the following problems: #New-onset atrial fibrillation: No prior history of atrial fibrillation although she has been told by a physician in the past that she has rapid heartbeat. Initial EKG in the ED with NSR but went into atrial fibrillation as demonstrated by repeat EKG. Converted back to NSR with 10 mg of IV Cardizem and 30 mg of PO Cardizem with no further episodes of atrial fibrillation. * We started heparin IV * Patient continue to have sinus rhythm on monitor for 2 days * Echocardiogram Left ventricular wall thickness at upper limits of normal. Normal left ventricular ejection fraction visually estimated at >60 Normal left ventricular diastolic filling pattern for age. The left atrium is normal in size. Mild thickening/calcification of the mitral valve leaflets. Trace to mild mitral regurgitation. Focal thickening of the aortic valve cusps. No aortic stenosis. Right ventricular systolic pressure estimated to be mildly elevated at 40 mmHg. * Serial troponins and EKG negative * Patient is stable, will be discharged on mg supplementation, will discontinue all other medication #HLD: * Discontinue atorvastatin 20 mg PO QD. #HTN: * Discountinue amlodipine 10 mg PO QD * Discountinue HCTZ 25 mg daily * Patient is normotensive Diet: Consistent Carbohydrate Lytes: Replete to K > 4 and Mg > 2 DVT PPx: DC heparin IV, ALPS CODE: FULL Allergies: Coded Allergies: iodine (Intermediate, SWELLING 09/22/16) shellfish derived (Intermediate, SWELLING 09/22/16) Disposition Summary Disposition Principal Diagnosis: New-onset atrial fibrillation Additional Diagnosis: NONE Discharge Disposition: home or self care Discharge Instructions General Discharge Information Code Status: Full Code Patient's Diet: Regular diet Patient's Activity: As tolerated Follow-Up Instructions/Appts: Please follow-up with your PCP within 1 week after discharge Please follow up with Dr. Weaver batch weigher within 2 weeks after discharge Medications at Discharge Discharge Medications: Stop taking the following medications: Amlodipine Besylate (Amlodipine) 10 MG TAB ORAL DAILY Qty = 90 Simvastatin (Zocor) 20 MG TAB ORAL Every night Qty = 90 Hydrochlorothiazide (Hydrochlorothiazide) 25 MG TABLET ORAL DAILY Qty = 90 Simvastatin (Simvastatin*) 20 MG TABLET ORAL Every night Qty = 90 Amlodipine Besylate (Amlodipine Besylate) 10 MG TABLET ORAL DAILY Qty = 90 Start taking the following new medications: Magnesium Oxide (Magnesium Oxide) 400 MG TABLET 1 Tablet ORAL DAILY Qty = 30 No Refills Copies To: PEPE PEREZ,ZAYNAB Attending MD Review Statement Documenting Attending: ALYCIA WEAVER MD, V. Other Findings: Agree with summary except that pt should CONTINUE(NOT STOP TAKING) her previous meds and ADD Magnesium supplement.
== END 2016-09-24 15:30 | DRG 310 ==
LOC: ENRESERVDT → ENRESERVTM → ERH 21:05 → 1NO 23:03 → ENPENDDIS 23:03 → ERHI 23:03 → EDBEDREQ 09-23 00:46 → 1NO 09-23 01:41
PROVIDERS: Dermatology; Internal Medicine; Physician Assistant Medical; ADMIT Student in an Organized Health Care Education/Training Program
DX: I48.91 Unspecified atrial fibrillation (principal); I10 Essential (primary) hypertension; E78.5 Hyperlipidemia, unspecified; I45.10 Unspecified right bundle-branch block; J45.909 Unspecified asthma, uncomplicated; K21.9 Gastro-esophageal reflux disease without esophagitis; Z87.891 Personal history of nicotine dependence
CPT/HCPCS: 1NP; ERO; 36415; 82436; 93005; 93010; 93306; 96374; 96375; 99291; J1644; J2405

== ENCOUNTER 2016-10-06 23:33 | Observation (INO) | payer OTHER, MEDICARE ==
[~2016-10-06] VITALS: Ht 162.6 cm; Wt 80.7 kg
[~2016-10-06 23:33] MED LIST changes: +AMLODIPINE BESY10 M1 PO; +HYDROCHLOROTHIA25 M1 PO; +MAGNESIUM OXID400 M1 PO; +SIMVASTATIN20 M2 PO
[2016-10-07 00:24] LABS: ABSOLUTE BASOPHIL COUNT 0 /CUMM (0.0-0.2); ABSOLUTE EOSINOPHIL COUNT 0.1 /CUMM (0.0-0.7); ABSOLUTE GRANULOCYTE CT 5.8 /CUMM (1.4-6.5); ABSOLUTE MONOCYTE COUNT 0.5 /CUMM (0.10-0.60); BASOPHIL % 0.3 % (0.0-2.0); EOSINOPHIL % 0.8 % (0-5); GRANULOCYTE % 68.9 % (42.2-75.2); HEMATOCRIT 43.9 % (37-47); MEAN CORPUSCULAR HGB 30.1 PG (27.0-31.0); MEAN CORPUSCULAR HGB CONC 33.5 G/DL (33.0-37.0); MEAN CORPUSCULAR VOLUME 89.8 FL (81.0-99.0); MEAN PLATELET VOLUME 8.4 FL (7.4-10.4); PLATELET COUNT 322 /CUMM (130-400); RBC DISTRIBUTION WIDTH 14.2 % (11.5-14.5); RED BLOOD CELL CT 4.89 /CUMM (4.20-5.40); WHITE BLOOD CELL COUNT 8.4 /CUMM (4.8-10.8)
--- NOTE | 2016-10-07 00:58 | ED CARDIAC/CP/PALPITATIONS ---
History of Present Illness General Chief Complaint: Palpitations Stated Complaint: " IRREGULAR HEART BEATS" Source: patient Exam Limitations: no limitations Vital Signs & Intake/Output Vital Signs & Intake/Output Vital Signs Date Time Temp Pulse Resp B/P Pulse O2 O2 Flow FiO2 Ox Delivery Rate 10/07 0204 72 18 130/65 97 Room Air 10/07 0107 88 18 139/67 97 Room Air 10/07 0021 Room Air 10/07 0000 97.6 91 18 169/81 97 Room Air ED Intake and Output 10/07 0000 10/06 1200 Intake Total Output Total Balance Patient 178 lb Weight Allergies Coded Allergies: iodine (Intermediate, SWELLING 09/22/16) shellfish derived (Intermediate, SWELLING 09/22/16) Reconcile Medications Amiodarone HCl 200 MG TABLET 1 TAB PO DAILY aflutter Start taking 200 mg PO daily from 23 October 2016. Apixaban (Eliquis) 5 MG TABLET 5 MG PO BID afib Atorvastatin Calcium (Lipitor) 10 MG TABLET 1 TAB PO DAILY CHOLESTROL [Cordarone] 400 MG PO BID afib Magnesium Oxide 400 MG TABLET 1 TAB PO DAILY heart lg Triage Note: PT TO TRIAGE COMPLAINING OF HEART PALPATATIONS. PT STATES, "MY HEART IS BEATING FAST AND IT JUST DOESNT FEEL RIGHT". PT WAS RECENTLY ADMITTED TO [facility] 2 WEEKS AGO. PT DENIES CP. COMPLAINING OF DIZZINESS AND LIGHTHEADEDNESS. Triage Nurses Notes Reviewed? yes HPI: Patient presents for evaluation of an onset of heart palpitations similar to a prior episode of intermittent atrial fibrillation. She States that her heart palpitations were abrupt in onset prior to arrival with associated dizziness and weakness. Episodes are described as severe and the patient became concerned to the point where she felt she needed to be evaluated in the emergency department. Nothing seems to make the palpitations resolve. Past History Travel History Traveled to [place] past 21 day No Medical History Any Pertinent Medical History? 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 FH: heart disease FATHER, . FH: heart disease Relation not specified for: Patient's father is Hx Contributory? No Review of Systems Review of Systems Constitutional: Reports: no symptoms. EENTM: Reports: no symptoms. Respiratory: Reports: no symptoms. Cardiovascular: Reports: no symptoms. GI: Reports: no symptoms. Genitourinary: Reports: no symptoms. Musculoskeletal: Reports: no symptoms. Skin: Reports: no symptoms. Neurological/Psychological: Reports: no symptoms. Hematologic/Endocrine: Reports: no symptoms. Immunologic/Allergic: Reports: no symptoms. All Other Systems: Reviewed and Negative Physical Exam Physical Exam Cardiovascular: SEE BELOW Comments: Gen.: Well-nourished, well-developed, no acute respiratory distress. Head: Normocephalic, atraumatic. Eyes: Normal inspection bilaterally Ears: Normal inspection bilaterally Nose: Normal inspection Throat/mouth : Moist mucosa Neck: Supple, full range of motion, no goiter Heart: Regular rate and rhythm, no murmurs rubs or gallops Lungs: Clear to auscultation bilaterally with normal air entry Chest: Nontender Back: Normal range of motion Abdomen: Soft, nontender, nondistended, normal bowel sounds Extremities: Normal range of motion grossly, equal radial pulses, no cyanosis clubbing or edema Neurologic: Cranial nerves grossly intact, speech is clear Skin: warm and dry Psychiatric: Calm, cooperative, no apparent delusions or hallucinations Core Measures ACS in differential dx? Yes Severe Sepsis Present: No Septic Shock Present: No Progress Differential Diagnosis: AMI, atrial fibrillation, unstable angina, WPW syndrome Plan of Care: Orders Procedure Date/time Status Place in observation 10/07 0611 Active LYME TITRE 10/07 0532 Active TROPONIN LEVEL 10/07 0404 Complete EKG 10/07 0404 Active Discontinue Nursing Interventi 10/07 0400 Active Telemetry/Neurology Epilepsy Physician 10/07 0103 Active Add-on Test (ER Only) 10/07 0030 Active THYROID STIMULATING HORMONE 10/07 0015 Complete MAGNESIUM 10/07 0015 Complete TROPONIN LEVEL 10/06 2340 Complete COMPREHENSIVE METABOLIC PANEL 10/06 2340 Complete CBC WITHOUT DIFFERENTIAL 10/06 2340 Complete EKG 10/06 2335 Active Current Medications Sig/Zoila Start time Last Medication Dose Stop Time Status Admin Diltiazem HCl 10 MG ONCE ONE 10/07 29 CAN (Cardizem) 10/07 30 Laboratory Tests 10/07/16 0425: Troponin I < 0.01, Lyme Disease Antibody Pending 10/07/16 0015: Anion Gap 12, Estimated GFR > 60, BUN/Creatinine Ratio 20.0, Glucose 118 H, Calcium 9.6, Magnesium 1.8, Total Bilirubin 0.4, AST 26, ALT 33, Alkaline Phosphatase 106, Troponin I < 0.01, Total Protein 7.7, Albumin 4.1, Globulin 3.6 , Albumin/Globulin Ratio 1.1, TSH 1.330, CBC w Diff NO MAN DIFF REQ, RBC 4.89, MCV 89.8, MCH 30.1, RDW 14.2, MPV 8.4, Gran % 68.9, Lymphocytes % 23.9, Monocytes % 6.1, Eosinophils % 0.8, Basophils % 0.3, Absolute Granulocytes 5.8, Absolute Lymphocytes 2.0, Absolute Monocytes 0.5, Absolute Eosinophils 0.1, Absolute Basophils 0, PUBS MCHC 33.5 Initial ED EKG: REGULAR NARROW COMPLEX TACHYCARDIA WITH A RATE OF 145 Prior EKG: changed Repeat EKG: unchanged Rhythm Strip: normal sinus rhythm, WITH PAROXYSMS OF ATRIAL FIBRILLATION Comments: 10/07/2016 12:56:40 AM patient seemed to convert briefly into a normal sinus rhythm but then became tachycardic again. I have reviewed Vitor Weaver MD consults on the patient's prior visit for which she seemed to be suffering very same issue (episodes of normal sinus rhythm followed by episodes of rapid atrial fibrillation). We'll commence with the Cardizem. 10/07/2016 1:00:23 AM TATO is currently in a sinus rhythm so I have discontinued the Cardizem bolus but given that she has intermittent atrial fibrillation I will proceed with the Cardizem drip. 10/07/2016 2:03:07 AM tato remains in a sinus rhythm and has no complaint at this time. She states that her amlodipine was discontinued during her last hospitalization because her blood pressure was alright. Plan wean Cardizem drip and consult cardiology regarding restarting of the patient's amlodipine or another rate controlling antihypertensive medication. 10/07/2016 6:13:57 AM patient's case discussed with Dr. Jose Weaver who feels the patient should be admitted to observation on telemetry. Departure Departure Disposition: STILL A PATIENT Condition: Stable Clinical Impression Primary Impression: Paroxysmal atrial fibrillation Referrals: PATIENT HAS NO PRIMARY CARE DR (PCP/Family) Departure Forms: Customer Survey General Discharge Information Prescriptions: Current Visit Scripts Apixaban (Eliquis) 5 MG PO BID #30 [Cordarone] 400 MG PO BID #25 Amiodarone HCl 1 TAB PO DAILY #30 TAB Start taking 200 mg PO daily from 23 October 2016. Atorvastatin Calcium (Lipitor) 1 TAB PO DAILY #30 TAB Observation Note Spoke With: ARELI PEREZ,VITOR Alvarenga Physician Advisor Notified: SIENA PEREZ,GODWIN Spang[address] Place Patient In: Non-ED OBS Care Area Rationale for Observation: My rational for observation is as follows patient has been experiencing paroxysms of symptomatic atrial fibrillation (patient becomes weak and lightheaded/near syncopal). She is currently not on any rate controlling medications. She now requires hospitalization for continuous cardiac monitoring given the intermittent nature of her dysrhythmia. In addition she will need medication adjustments to control her episodes. I do not feel she is a good candidate for outpatient management at this time. Critical Care Note Critical Care Note Critical Care Time: non-applicable
--- NOTE | 2016-10-07 08:30 | History & Physical ---
LUCILLE PRATHER MD 10/07/16 0830: General Information and HPI MD Statement: I have seen and personally examined TATO HENDRIX and documented this H&P. The patient is a 71 year old F who presented with a patient stated chief complaint of [palpitations]. Source of Information: patient, old records History of Present Illness: This is a 71-year-old female with a past medical history of paroxysmal atrial fibrillation who was recently admitted to [facility] one week back and was discharged on no antiarrhythmic or rate controlled medication. During her previous admission in the last week the patient converted back to normal sinus rhythm in less than 24 hours and hence was not discharged with any rate controlling or antiarrhythmic medications. The patient's symptoms started last night when she started feeling dizzy and felt as if her heart was racing too fast she felt as if she is going to fall down but she never lost consciousness. She was brought to the emergency department and in the ER she was found to be in rapid atrial fibrillation with a maximum rate of 150. The patient converted back to normal sinus rhythm in the ER and she was successfully transitioned to be off the Cardizem drip in less than 24 hours. When I saw the patient the patient didn't have any symptoms. She felt okay and denied any episodes of chest pain or palpitations during the prior episode or even currently. The patient doesn't have any medications at home but she was previously taking amlodipine and hydrochlorothiazide for her blood pressure medications which she has been on for the last 1. 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 FH: heart disease FATHER, . FH: heart disease Relation not specified for: Patient's father is Psychosocial History Who Do You Live With? child Services at Home: None Primary Language: Citizen Of [place] Functional Ability ADLs Independent: dressing, eating, toileting, bathing. Ambulation: cane IADLs Independent: shopping, housework, finances, food prep, telephone, transportation , medication admin. Review of Systems Review of Systems Constitutional: Reports: see HPI. Cardiovascular: Reports: see HPI, palpitations. Denies: edema, peripheral edema, syncope. Respiratory: Denies: cough, hemoptysis, orthopnea, short of breath, sputum production. GI: Denies: bloating, constipation, diarrhea, distention, bowel incontinence. Genitourinary: Denies: discharge, dysuria, frequency, hematuria. Musculoskeletal: Denies: back pain, gout, joint pain, joint swelling, muscle pain. Skin: Denies: change in skin color, change in hair/nails, dryness, erythema, jaundice, lesions. Neurological/Psychological: Denies: cognitive dysfunction, confusion, depressed, dementia, emotional problems, headache. Exam & Diagnostic Data Last 24 Hrs of Vital Signs/I&O Vital Signs Date Time Temp Pulse Resp B/P Pulse O2 O2 Flow FiO2 Ox Delivery Rate 10/07 0851 97.4 65 18 130/86 99 Room Air 10/07 0724 97.1 78 20 145/70 99 Room Air 10/07 0204 72 18 130/65 97 Room Air 10/07 0107 88 18 139/67 97 Room Air 10/07 0021 Room Air 10/07 0000 97.6 91 18 169/81 97 Room Air Intake & Output 10/07 1600 10/07 0800 10/07 0000 Intake Total 125 Output Total Balance 125 Intake, IV 125 Patient 178 lb Weight Physical Exam General Appearance Alert, Oriented X3, Cooperative Skin No Rashes, No Breakdown HEENT Atraumatic, PERRLA Neck Supple, No JVD, No thryomegaly Lymphatic Axillary nl, Cervical nl Cardiovascular Regular Rate, Normal S1, Normal S2 Lungs Clear to Auscultation, Normal Air Movement Abdomen Normal Bowel Sounds, Soft, No Tenderness Neurological Normal Speech, Strength at 5/5 X4 Ext, Normal Tone Extremities No Clubbing, No Cyanosis, No Edema Assessment/Plan Assessment: This is a 71-year-old female with a past medical history of hypertension paroxysmal atrial fibrillation hyperlipidemia presents to the [facility] after one week of being discharged from the hospital. This time the patient presented with palpitations and episodes of dizziness. Slight in the ER the patient was found to be in atrial fibrillation with a maximum heart rate Cardizem drip which was which was then later transitioned off after she was in normal sinus rhythm. Vitals at the time of admission shows blood pressure: Blood pressure 145/70, respiration rate of 18, 7.1 and room air, heart rate of 78 iNITIAL EKG shows atrial fibrillation and then the second EKG showing normal sinus rhythm Assessment 1. Atrial flutter with normal ventricular response. 2. Chronic hypertension 3. Chronic hyperlipidemia Plan -Admit the patient to telemetry for the next 24 hours -Considering that the patient had a second episode of atrial flutter she needs to be an antiarrhythmic medication for which we will start the patient on amiodarone. We'll start with a loading dose of 400 mg twice a day and then transition to 200 mg after 2 weeks -Patient also needs a long-term anticoagulation due to elevated Goyo rest score and she was started her on apixaban 5 mg twice a day -The patient was previously on simvastatin which the studies have shown have contraindication when used with amiodarone and hence we will check the lipid panel at this point and if the patient warrants an statin therapy she would be switched atorvastatin DVT prophylaxis at all times That the patient has allergies to iodine and I confirmed that the patient has only mild abdominal discomfort after she takes iodine and no episodes of breaking out in rash when taken iron in the past. As Ranked By This Provider Problem List: 1. HLD (hyperlipidemia) 2. Atrial flutter Core Measures/Miscellaneous Acute Coronary Syndrome ACS Diagnosis: No Cerebrovascular Accident CVA/TIA Diagnosis: No Congestive Heart Failure CHF Diagnosis: No Venous Thromboembolism VTE Risk Factors: Acute medical illness, Age > 40 VTE Prophylaxis [facility]dered Inpt: [facility] d/t: No contraindications No VTE Pharm Prophylaxis d/t: No contraindications VTE Diagnosis: No VTE Type: NONE VTE Confirmed by (Test): NONE Severe Sepsis Severe Sepsis Present: No Septic Shock Septic Shock Present: No Miscellaneous Documentation Attending Case Discussed With: ALYCIA SINGLETON MD, V. Primary Care Physician: PATIENT HAS NO PRIMARY CARE DR Patient sees these Specialists none Level of Patient Care: Telemetry ALYCIA SINGLETON MD 10/07/16 0909: General Information and HPI Allergies/Medications Home Med list Amiodarone HCl 200 MG TABLET 1 TAB PO DAILY aflutter Start taking 200 mg PO daily from 23 October 2016. Apixaban (Eliquis) 5 MG TABLET 5 MG PO BID afib Atorvastatin Calcium (Lipitor) 10 MG TABLET 1 TAB PO DAILY CHOLESTROL [Cordarone] 400 MG PO BID afib Magnesium Oxide 400 MG TABLET 1 TAB PO DAILY heart lg Attending MD Review Statement Attending Statement Attending MD Statement: examined this patient, discuss w/resident/PA/HEALTH DATA ANALYST, reviewed EMR data (avail), reviewed images Attending Assessment/Plan: This patient is a 71-year-old female who was here about 2 weeks ago with paroxysmal atrial fibrillation. She eventually stabilized and was sent out on no antiarrhythmic medication and just on magnesium supplementation. Yesterday evening she started to have periods of lightheadedness and palpitations again. She came to the emergency department was found to be tachycardic at a rate of about 150. EKG G appears to show atrial flutter. She spontaneously converted to sinus rhythm and was put on Cardizem drip and she was also given some IV Cardizem. She remains in sinus rhythm at this time. The rest of her evaluation was unremarkable. Her previous thyroid function tests were normal. Her examination currently is unremarkable. I recommend that the patient should be anticoagulated with Eliquis. I would also recommend starting her on amiodarone to stabilize her rhythm. If she has further episodes then we will consider atrial fibrillation ablation for her.
[2016-10-07] MEDS ORDERED: NORVASC10 M1 PO (08:46)
[2016-10-07] MEDS ORDERED: HYDROCHLOROTHIA25 M1 PO (08:46)
[2016-10-07] MEDS ORDERED: SIMVASTATIN20 M2 PO (08:47)
[2016-10-07 08:51] VITALS: BP 130/86
[2016-10-07] MEDS ORDERED: Cordarone PO (15:15)
[2016-10-07] MEDS ORDERED: ELIQUIS5 M1 PO (15:15)
--- NOTE | 2016-10-07 15:16 | Patient Discharge Instructions ---
Discharge Instructions General Discharge Information You were seen/treated for: atrial flutter palpitations Special Instructions: please f/u with your pcp in1 week of discharge please f/u with dr mak baeza in1 week of discharge. Acute Coronary Syndrome Inclusion Criteria At DC or during hospital stay patient has or had the following: ACS DIAGNOSIS No Discharge Core Measures Meds if any: Prescribed or Continued at Discharge Meds if any: NOT Prescribed or Continued at Discharge Congestive Heart Failure Inclusion Criteria At DC or during hospital stay patient has or had the following: CHF DIAGNOSIS No Discharge Core Measures Meds if any: Prescribed or Continued at Discharge Meds if any: NOT Prescribed or Continued at Discharge Cerebrovascular accident Inclusion Criteria At DC or during hospital stay patient has or had the following: CVA/TIA Diagnosis No Discharge Core Measures Meds if any: Prescribed or Continued at Discharge Meds if any: NOT Prescribed or Continued at Discharge Venous thromboembolism Inclusion Criteria VTE Diagnosis No VTE Type NONE VTE Confirmed by (Test) NONE Discharge Core Measures - Per Current guidelines, there needs to be overlap - treatment for the first 5 days of Warfarin therapy. - If discharged on Warfarin prior to 5 days of - overlap therapy, the patient will need to be - assessed for post discharge needs including - *Post discharge parental anticoagulation - *Warfarin and/or parental anticoagulation education - *Follow up date to check INR post discharge At least 5 days overlap therapy as Inpatient No Meds if any: Prescribed or Continued at Discharge Note: Overlap Therapy is Warfarin and Anticoagulant Meds if any: NOT Prescribed or Continued at Discharge
[2016-10-07] MEDS ORDERED: AMIODARONE HCL200 M1 PO (15:17)
[2016-10-07 16:59] VITALS: BP 131/73
[2016-10-07 23:44] VITALS: BP 130/82
--- NOTE | 2016-10-08 07:57 | PN- Housestaff ---
YAMILKA PEREZ,LUCILLE 10/08/16 0757: Subjective Follow-up For: AFLUTTER Tele-Events Since Last Visit: Remained in normal sinus rhythm Subjective: She has no complains. No complains of PAIN DIZZINESS OR PALPITATIONS. dENIES ANY EPISODES OF CHEST PAIN OVERNIGHT Review of Systems Constitutional: Reports: see HPI. Objective Last 24 Hrs of Vital Signs/I&O Vital Signs Date Time Temp Pulse Resp B/P Pulse O2 O2 Flow FiO2 Ox Delivery Rate 10/07 2344 98.3 58 20 130/82 97 Room Air 10/07 2116 56 130/82 10/07 1659 98.2 64 18 131/73 97 Room Air 10/07 1118 130/86 10/07 0851 97.4 65 18 130/86 99 Room Air Intake & Output 10/08 1600 10/08 0800 10/08 0000 Intake Total 480 480 Output Total Balance 480 480 Intake, Oral 480 480 Physical Exam General Appearance: Alert, Oriented X3, Cooperative, No Acute Distress Skin: No Rashes, No Breakdown HEENT: Atraumatic, PERRLA Neck: Supple, No JVD, No thryomegaly Lymphatic: Axillary nl, Cervical nl Cardiovascular: Regular Rate, Normal S1, Normal S2 Lungs: Clear to Auscultation, Normal Air Movement Abdomen: Normal Bowel Sounds, Soft, No Tenderness Current Medications: Current Medications Sig/Zoila Start time Last Medication Dose Route Stop Time Status Admin Acetaminophen 650 MG Q6P PRN 10/07 0930 AC PO Acetaminophen/ 1 TAB Q6P PRN 10/07 0930 AC Hydrocodone Bitart PO Amiodarone HCl 400 MG BID 10/07 1000 AC 10/07 PO 2115 Apixaban 5 MG BID 10/07 1000 AC 10/07 PO 2115 Diltiazem HCl 125 MG Q24H 10/07 0300 DC 10/07 Sodium Chloride 100 ML IV 0301 Magnesium Oxide 400 MG BID 10/07 1000 AC 10/07 PO 2115 Oxycodone/ 2 TAB Q6P PRN 10/07 0930 AC Acetaminophen PO Last 24 Hrs of Lab/Dave Results Last 24 Hrs of Labs/Mics: Laboratory Tests 10/07/16 1050: Troponin I < 0.01 Assessment/Plan Assessment: This is a 71-year-old female with a past medical history of hypertension hyperlipidemia who presents to the [facility] in atrial flutter. She required IV Cardizem drip in the ER which was then later transitioned to off once the patient would benefit from a sinus rhythm. Assessment 1. Paroxysmal atrial flutter and paroxysmal atrial flutter 2. History of hypertension 3. History of hyperlipidemia Plan The patient has been tolerating the amiodarone therapy. The plan is to continue with 400 mg by mouth twice a day amiodarone elevated transitioned to 200 mg daily after 14 days Continue with apixaban 5 mg twice a day switch simvastatin to atorvastatin 10 mg daily The patient is stable for discharge. She was counseled and instructed to follow -up with Dr. Weaver in one week of her discharge. We will also refer her to a primary care physician as she currently does not have any. Problem List: 1. Paroxysmal atrial fibrillation 2. HTN (hypertension) 3. HLD (hyperlipidemia) Pain Ratin Pain Location: No pain Pain Goal: Remain pain free Pain Plan: . Tylenol as needed Tomorrow's Labs & Rationales: none ALYCIA WEAVER MD 10/09/16 1200: Attending MD Review Statement Attending Statement Attending MD Statement: examined this patient, discuss w/resident/PA/[employer]ATIVE OFFICER Attending Assessment/Plan: The patient is stable for discharge. I have discussed with her and the resident the plans for followup. Cristal Weaver MD
[2016-10-08 08:00] VITALS: BP 122/78
[2016-10-08] MEDS ORDERED: LIPITOR10 M1 PO ×2 (08:14→10:47)
--- NOTE | 2016-10-08 10:13 | PN- Cardiology ---
Subjective Subjective: Ms. Lozano is feeling well. She is eager to be discharged. She remains in sinus rhythm. She is now on amiodarone and Eliquis and tolerating well. Objective Vital Signs and I&Os Vital Signs Date Time Temp Pulse Resp B/P Pulse O2 O2 Flow FiO2 Ox Delivery Rate 10/08 08 97.5 69 18 122/78 96 Room Air 10/07 2344 98.3 58 20 130/82 97 Room Air 10/07 2116 56 130/82 10/07 1659 98.2 64 18 131/73 97 Room Air 10/07 1118 130/86 Intake & Output 10/08 1600 10/08 0800 10/08 0000 10/07 1600 10/07 0800 10/07 0000 Intake Total 480 480 125 Output Total Balance 480 480 125 Intake, IV 125 Intake, Oral 480 480 Patient 178 lb 178 lb Weight Physical Exam: On physical she is in no distress HEENT exam is normal Chest is clear Heart is regular rhythm and no murmurs Current Medications: Current Medications Sig/Zoila Start time Last Medication Dose Route Stop Time Status Admin Acetaminophen 650 MG Q6P PRN 10/07 0930 AC PO Acetaminophen/ 1 TAB Q6P PRN 10/07 0930 AC Hydrocodone Bitart PO Amiodarone HCl 400 MG BID 10/07 1000 AC 10/07 PO 211 Apixaban 5 MG BID 10/07 1000 AC 10/07 PO 2116 Magnesium Oxide 400 MG BID 10/07 1000 AC 10/07 PO 211 Oxycodone/ 2 TAB Q6P PRN 10/07 0930 AC Acetaminophen PO Results Last 48 Hrs of Labs/Mics: Laboratory Tests 10/07/16 1050: Troponin I < 0.01 10/07/16 0425: Troponin I < 0.01, Lyme Disease Antibody Pending 10/07/16 0015: Anion Gap 12, Estimated GFR > 60, BUN/Creatinine Ratio 20.0, Glucose 118 H, Calcium 9.6, Magnesium 1.8, Total Bilirubin 0.4, AST 26, ALT 33, Alkaline Phosphatase 106, Troponin I < 0.01, Total Protein 7.7, Albumin 4.1, Globulin 3.6 , Albumin/Globulin Ratio 1.1, Triglycerides 127, Cholesterol 232 H, LDL Cholesterol, Calc 156 H, HDL Cholesterol 51, Cholesterol/HDL Ratio 5 H, TSH 1.330, CBC w Diff NO MAN DIFF REQ, RBC 4.89, MCV 89.8, MCH 30.1, RDW 14.2, MPV 8.4, Gran % 68.9, Lymphocytes % 23.9, Monocytes % 6.1, Eosinophils % 0.8, Basophils % 0.3, Absolute Granulocytes 5.8, Absolute Lymphocytes 2.0, Absolute Monocytes 0.5, Absolute Eosinophils 0.1, Absolute Basophils 0, PUBS MCHC 33.5 10/06/16 2340: Hemoglobin A1c 6.3 H Assessment/Plan Assessment/Plan The patient is stable for discharge. She is to be sent home on Eliquis and amiodarone loading dose. She has an appointment already to see me in about 10 days in the office. Continue telemetry? Not applicable
[2016-10-08 11:17] VITALS: BP 122/78
== END 2016-10-08 12:50 ==
LOC: ENRESERV → ENRESERVTM → ENRESERVDT → ERH 23:33 → ERHI 10-07 06:30 → ENPENDDIS 10-07 06:30 → 1NO 10-07 08:25
PROVIDERS: Physician Assistant Medical; ADMIT Internal Medicine
DX: I48.91 Unspecified atrial fibrillation (principal); I10 Essential (primary) hypertension; E78.5 Hyperlipidemia, unspecified; J45.909 Unspecified asthma, uncomplicated; K21.9 Gastro-esophageal reflux disease without esophagitis; I48.92 Unspecified atrial flutter; M41.9 Scoliosis, unspecified
CPT/HCPCS: 2000; 6020; 86618; 93005; 93010; 96374; 96376; G0378

== ENCOUNTER 2017-03-16 19:32 | Inpatient (IN) | payer OTHER, MEDICARE ==
[~2017-03-16] VITALS: Ht 157.5 cm; Wt 79.4 kg
[~2017-03-16 19:32] MED LIST changes: +AMIODARONE HCL200 M1 PO; +Cordarone PO; +ELIQUIS5 M1 PO; +LIPITOR10 M1 PO; +NORVASC10 M1 PO
--- NOTE | 2017-03-16 19:50 | NUR ---
PT TO ED WITH ABD PAIN THAT RADIATES TO RIGHT SIDE OF CHEST THAT STARTED EARLY THIS AFTERNOON. PT COMPLAINS OF N/V AFTER THE ONSET OF PAIN. PT DENIES SOB/DIAPHORESIS. PT ALERT AND ORIENTED UPON ARRIVAL.
--- NOTE | 2017-03-16 19:58 | ED GI/GU/ABDOMINAL COMPLAINT ---
History of Present Illness General Chief Complaint: Chest Pain Stated Complaint: CP/ABD PAIN X 1DAY Source: patient, family, old records Exam Limitations: no limitations Vital Signs & Intake/Output Vital Signs & Intake/Output Vital Signs Date Time Temp Pulse Resp B/P B/P Pulse O2 O2 Flow FiO2 Mean Ox Delivery Rate 03/16 2346 96.7 66 18 145/67 95 Room Air 03/16 2218 96.9 68 16 165/72 96 Room Air 03/16 1951 97.6 80 18 164/75 97 Room Air ED Intake and Output 03/17 0000 03/16 1200 Intake Total 0 Output Total Balance 0 Intake, Oral 0 Patient 175 lb Weight Weight Estimated Measurement Method Allergies Coded Allergies: iodine (Intermediate, SWELLING 09/22/16) shellfish derived (Intermediate, SWELLING 09/22/16) Reconcile Medications Amiodarone HCl 200 MG TABLET 1 TAB PO DAILY aflutter Start taking 200 mg PO daily from 23 October 2016. Amlodipine Besylate (Norvasc) 10 MG TABLET 1 TAB PO DAILY BLOOD PRESSURE ( Reported) Apixaban (Eliquis) 5 MG TABLET 5 MG PO BID afib Atorvastatin Calcium (Lipitor) 10 MG TABLET 1 TAB PO DAILY CHOLESTROL Magnesium Oxide 400 MG TABLET 1 TAB PO DAILY heart lg Triage Note: PT TO ED WITH ABD PAIN THAT RADIATES TO RIGHT SIDE OF CHEST THAT STARTED EARLY THIS AFTERNOON. PT COMPLAINS OF N/V AFTER THE ONSET OF PAIN. PT DENIES SOB/DIAPHORESIS. PT ALERT AND ORIENTED UPON ARRIVAL. Triage Nurses Notes Reviewed? yes ? n Is pt currently ? No HPI: Patient presents to the emergency department with a uncomfortable pressure sensation epigastric area that radiates into the right lower portion of her chest. The symptoms of constant since earlier this afternoon. Positive nausea and vomiting. No aggravating factors. She rates the pressure at 6 out of 10. There are no fevers or chills. Patient denies any shortness of breath or diaphoresis. Past History Travel History Traveled to [place] past 21 day No Medical History Any Pertinent Medical History? see below for history Neurological: NONE EENT: NONE Cardiovascular: AFIB, hypertension, hyperlipidemia Respiratory: asthma Gastrointestinal: GERD Hepatic: NONE Renal: NONE Musculoskeletal: scoliosis Psychiatric: NONE Endocrine: NONE Blood Disorders: DVT Cancer(s): NONE CAR SANDER/Reproductive: NONE Other Medical Hx: Eczema History of MRSA: No History of VRE: No History of CDIFF: No Surgical History Surgical History: , hernia repair-umbilical, spinal surgery hiatal hernia repair Psychosocial History Services at Home None What is your primary language French Tobacco Use: Never used ETOH Use: denies use Illicit Drug Use: denies illicit drug use Family History Family History, If Any: MOTHER, . FH: heart disease FATHER, . FH: heart disease Relation not specified for: Patient's father is Hx Contributory? No Review of Systems Review of Systems Constitutional: Reports: no symptoms. EENTM: Reports: no symptoms. Respiratory: Reports: no symptoms. Cardiovascular: Reports: see HPI, chest pain. GI: Reports: see HPI, abdominal pain, nausea, vomiting. Genitourinary: Reports: no symptoms. Musculoskeletal: Reports: no symptoms. Skin: Reports: no symptoms. Neurological/Psychological: Reports: no symptoms. Hematologic/Endocrine: Reports: no symptoms. Immunologic/Allergic: Reports: no symptoms. All Other Systems: Reviewed and Negative Physical Exam Physical Exam General Appearance: well developed/nourished, alert, awake, mild distress Head: atraumatic, normal appearance Eyes: Bilateral: PERRL, EOMI, other (anicteric). Ears, Nose, Throat, Mouth: hearing grossly normal, moist mucous membrane Neck: normal inspection, supple, full range of motion Respiratory: normal breath sounds, chest non-tender, no respiratory distress, lungs clear Cardiovascular: regular rate/rhythm, normal peripheral pulses Gastrointestinal: normal bowel sounds, soft, no organomegaly, tenderness, + Cook's sign Back: normal inspection, normal range of motion Extremities: normal range of motion Neurologic/Psych: no motor/sensory deficits, awake, alert, oriented x 3, normal mood/affect Skin: intact, normal color, warm/dry Core Measures ACS in differential dx? No Severe Sepsis Present: No Septic Shock Present: No Progress Differential Diagnosis: AAA, AMI, biliary colic, bowel obstruction, colon cancer , cholecystitis, gastritis, hepatitis, ischemic bowel, inflamm bowel dis, pancreatitis, SBO Plan of Care: Orders Procedure Date/time Status Nothing by Mouth 03/17 B Active HEPATIC FUNCTION PANEL 03/17 06 Active BASIC ELECTROLYTES PLUS BUN&CR 03/17 06 Active Pathway - chart 03/17 0026 Active Code Status 03/17 0026 Active House Staff 03/17 UNK Active VTE Mechanical Prophylaxis 03/17 UNK Active Vital Signs 03/17 UNK Active Lab Add-on Test 03/16 234 Active Patient Data 03/16 233 Active ED Holding Orders 03/16 2327 Active Admit to inpatient 03/16 2327 Active Vital Signs 03/16 2327 Active Code Status 03/16 2327 Complete Add-on Test (ER Only) 03/16 224 Active TRIGLYCERIDES 03/16 2120 Complete LDH (LACT ACID DEHYDROGENASE) 03/16 2120 Complete ETHANOL 03/16 2120 Complete Telemetry/Induction Heating Equipment Setter 03/16 1957 Active TROPONIN LEVEL 03/16 1957 Complete LIPASE 03/16 1957 Complete COMPREHENSIVE METABOLIC PANEL 03/16 1957 Complete CBC WITHOUT DIFFERENTIAL 03/16 1957 Complete AMYLASE 03/16 1957 Complete Intake & Output 03/16 1951 Active EKG 03/16 1939 Active Current Medications Sig/Zoila Start time Last Medication Dose Stop Time Status Admin Amiodarone HCl 200 MG DAILY 03/17 1000 UNVr (Cordarone) Amlodipine Besylate 10 MG DAILY 03/17 1000 UNVr (Norvasc) Apixaban 5 MG BID 03/17 1000 UNVr (Eliquis) Magnesium Oxide 400 MG DAILY 03/17 1000 UNVr (Mag-Ox) Acetaminophen 650 MG Q6P PRN 03/17 0030 UNVr (Tylenol) Ketorolac 15 MG Q6P PRN 03/17 0030 UNVr Tromethamine (Toradol) Morphine Sulfate 2 MG Q4P PRN 03/17 0030 UNVr (Morphine) Ondansetron HCl 4 MG Q6P PRN 03/17 0030 UNVr (Zofran) Sodium Chloride 1,000 ML ONCE ONE 03/16 2330 AC 03/16 (Normal Saline 0.9%) 03/17 0609 2352 Laboratory Tests 03/16/172119: Anion Gap 9, Estimated GFR > 60, BUN/Creatinine Ratio 17.1, Glucose 113 H, Calcium 9.0, Total Bilirubin 0.8, AST 314 H, ALT 173 H, Alkaline Phosphatase 196 H, Lactate Dehydrogenase 1557 H, Troponin I < 0.01, Total Protein 7.0, Albumin 3.9, Globulin 3.1, Albumin/Globulin Ratio 1.3, Triglycerides 44, Amylase 2134 H, Lipase > 83746 H, CBC w Diff NO MAN DIFF REQ, RBC 4.34, MCV 90.1, MCH 29.6, RDW 14.7 H, MPV 9.2, Gran % 90.0 H, Lymphocytes % 8.5 L, Monocytes % 1.3 L, Eosinophils % 0.1, Basophils % 0.1, Absolute Granulocytes 6.8 H, Absolute Lymphocytes 0.6 L, Absolute Monocytes 0.1 L, Absolute Eosinophils 0, Absolute Basophils 0, PUBS MCHC 32.9 L, Serum Alcohol < 10.0 Diagnostic Imaging: Viewed by Me: Ultrasound. Discussed w/RAD: Ultrasound. Radiology Impression: PATIENT: TATO HENDRIX PRESENT AGE: 72 PATIENT ACCOUNT NO: [id number] : 47 LOCATION: [facility] ORDERING PHYSICIAN: GODWIN WREN MD SERVICE DATE: 03/16/17 EXAM TYPE: US - US-LIMITED ABDOMEN EXAMINATION: US ABDOMEN LIMITED CLINICAL INFORMATION: Mid epigastric pain.. COMPARISON: Ultrasound of abdomen 05/03/2015. CT scan abdomen pelvis 05/03/2015. TECHNIQUE: Real-time imaging of the right upper quadrant abdominal viscera. FINDINGS: Exam limited by body habitus and bowel gas. PANCREAS: Normal. LIVER: Normal. The liver demonstrates normal size, contour and echogenicity. No focal lesion or intrahepatic biliary duct dilatation. GALLBLADDER: Gallbladder is contracted and not seen well. COMMON BILE DUCT: Normal in caliber measuring 0.4 cm in diameter. RIGHT KIDNEY: Right kidney only partially imaged due to bowel gas. No hydronephrosis. No renal calculi or focal parenchymal lesions. The kidney measures 12.5 cm in maximum dimension. FREE FLUID: None. IMPRESSION: Exam limited by body habitus and bowel gas. Gallbladder is contracted and not seen well. No bile duct dilatation. DICTATED BY: ADINA JACKSON MD DATE/TIME DICTATED:03/16/172119 PHOTOGRAPHIC PROCESS ATTENDANT :BARAK DATE/TIME TRANSCRIBED:03/16/172119 CONFIDENTIAL, DO NOT COPY WITHOUT APPROPRIATE AUTHORIZATION. <Electronically signed in Other Vendor System> SIGNED BY: ADINA JACKSON MD 03/16/172125, PATIENT: TATO HENDRIX PRESENT AGE: 72 PATIENT ACCOUNT NO: [id number] : LOCATION: [facility] ORDERING PHYSICIAN: GODWIN WREN MD SERVICE DATE: 03/16/17 EXAM TYPE: CAT - CT ABD & PELVIS W/O IV CONTRAS EXAMINATION: CT ABDOMEN AND PELVIS WITHOUT CONTRAST CLINICAL INFORMATION: Pancreatitis COMPARISON: CT scan abdomen pelvis 05/03/2015. Ultrasound abdomen 03/16/2017 TECHNIQUE: Multidetector volumetric imaging was performed from the superior aspect of the liver through the pubic symphysis. Sagittal and coronal reformatted images were obtained on the technologist's workstation. DLP: 477.25 mGy-cm FINDINGS: LUNG BASES: The visualized lung bases are unremarkable. LIVER, GALLBLADDER, AND BILIARY TREE: The liver is normal in size, shape, and attenuation. No focal hepatic lesion or biliary ductal dilatation is present. The gallbladder is contracted. Multiple small calcified gallstones within the gallbladder. No bile duct dilatation. PANCREAS: There is edema involving the pancreatic head and body with edema in the surrounding peripancreatic fat system with a pancreatitis. No pseudocyst formation. No pancreatic duct dilatation. SPLEEN: Unremarkable. ADRENAL GLANDS: 2 cm nodule in the right adrenal gland with density measurement of -1 Hounsfield unit consistent with adrenal adenoma. Left adrenal gland is normal. KIDNEYS AND URETERS: Cyst in the mid lower pole of the right kidney. This measures 3.8 cm. Has density measurement of 17 Hounsfield units. There is no renal or ureteral calculus. No hydronephrosis. BLADDER: Unremarkable. GASTROINTESTINAL TRACT: No acute change of bowel. No bowel obstruction. No bowel wall thickening or edema. Moderate volume of stool in colon. The appendix is normal. Small bowel loops are unremarkable. ABDOMINAL WALL: No significant hernia is appreciated. LYMPH NODES: Normal. VASCULAR: Atherosclerotic vascular wall calcifications of the aorta and iliac vessels. PELVIC VISCERA: Uterus is anteverted. No adnexal abnormality. OSSEOUS STRUCTURES : Levoscoliosis of lumbar spine. Fusion hardware in spine causing streak artifact. Status post left neck and 8. Perineural cystic change related to the laminectomy of the spine in the central soft tissues of the spine. IMPRESSION: 1. Edema of the pancreas consistent with a pancreatitis. No pseudocyst formation. 2. Cholelithiasis. DICTATED BY: ADINA JACKSON MD DATE/TIME DICTATED:2318 PHOTOGRAPHIC PROCESS ATTENDANT:BARAK DATE/TIME TRANSCRIBED:03/16/172318 CONFIDENTIAL, DO NOT COPY WITHOUT APPROPRIATE AUTHORIZATION. <Electronically signed in Other Vendor System> SIGNED BY: ADINA JACKSON MD 03/16/17 8650 Initial ED EKG: SR WITH RBBB, NEW T WAVE INVERSIONS ANTERIORLY SINCE 10/09 Prior EKG: changed Rhythm Strip: normal sinus rhythm Comments: Patient has been advised of ultrasound and laboratory results. Patient will have a CAT scan but she will require admission to the hospital. Questions have been answered. Departure Departure Disposition: STILL A PATIENT Condition: Stable Clinical Impression Primary Impression: Pancreatitis Qualifiers: Chronicity: acute Pancreatitis type: other Acute pancreatitis complication: unspecified Qualified Code: K85.80 - Other acute pancreatitis without necrosis or infection Referrals: PATIENT HAS NO PRIMARY CARE DR (PCP/Family) Departure Forms: Customer Survey General Discharge Information Admission Note Spoke With: ADALGISA PARIKH MD Documentation of Exam: Documentation of any treatments & extenuating circumstances including Concerns Regarding Discharge (functional status, medication knowledge or non-compliance, living conditions, etc.) that warrant an admission rather than observation: [npo , iv fluids, pain control, antiemetics, gi consultation, follow Jadiel's Criteria]
--- NOTE | 2017-03-16 20:22 | NUR ---
PT MEDICATED WITH TORADOL AND ZOFRAN PER EMAR.
--- NOTE | 2017-03-16 20:44 | NUR ---
PT TAKEN FOR ULTRASOUND AT THIS TIME.
--- NOTE | 2017-03-16 21:25 | NUR ---
SSTX2, LAV, BLUE, PINK AND GOLDBERG TOP TUBES SENT TO LAB.
--- NOTE | 2017-03-16 21:26 | NUR ---
PT STATES THAT PAIN IS SUBSIDING.
--- NOTE | 2017-03-16 21:26 | ULTRASOUND REPORT ---
EXAMINATION: US ABDOMEN LIMITED CLINICAL INFORMATION: Mid epigastric pain.. COMPARISON: Ultrasound of abdomen 05/03/2015. CT scan abdomen pelvis 05/03/2015. TECHNIQUE: Real-time imaging of the right upper quadrant abdominal viscera. FINDINGS: Exam limited by body habitus and bowel gas. PANCREAS: Normal. LIVER: Normal. The liver demonstrates normal size, contour and echogenicity. No focal lesion or intrahepatic biliary duct dilatation. GALLBLADDER: Gallbladder is contracted and not seen well. COMMON BILE DUCT: Normal in caliber measuring 0.4 cm in diameter. RIGHT KIDNEY: Right kidney only partially imaged due to bowel gas. No hydronephrosis. No renal calculi or focal parenchymal lesions. The kidney measures 12.5 cm in maximum dimension. FREE FLUID: None. IMPRESSION: Exam limited by body habitus and bowel gas. Gallbladder is contracted and not seen well. No bile duct dilatation.
[2017-03-16 21:55] LABS: ABSOLUTE BASOPHIL COUNT 0 /CUMM (0.0-0.2); ABSOLUTE EOSINOPHIL COUNT 0 /CUMM (0.0-0.7); ABSOLUTE GRANULOCYTE CT 6.8 /CUMM (1.4-6.5); ABSOLUTE LYMPH COUNT 0.6 /CUMM (1.2-3.4); ABSOLUTE MONOCYTE COUNT 0.1 /CUMM (0.10-0.60); BASOPHIL % 0.1 % (0.0-2.0); EOSINOPHIL % 0.1 % (0-5); HEMATOCRIT 39.2 % (37-47); MEAN CORPUSCULAR HGB 29.6 PG (27.0-31.0); MEAN CORPUSCULAR HGB CONC 32.9 G/DL (33.0-37.0); MEAN CORPUSCULAR VOLUME 90.1 FL (81.0-99.0); MEAN PLATELET VOLUME 9.2 FL (7.4-10.4); PLATELET COUNT 269 /CUMM (130-400); RBC DISTRIBUTION WIDTH 14.7 % (11.5-14.5); RED BLOOD CELL CT 4.34 /CUMM (4.20-5.40); WHITE BLOOD CELL COUNT 7.6 /CUMM (4.8-10.8)
--- NOTE | 2017-03-16 22:11 | NUR ---
PT AWARE THAT WE ARE AWAITING LAB RESULTS.
--- NOTE | 2017-03-16 22:39 | NUR ---
PT AMBULATORY TO RESTROOM AT THIS TIME WITH CANE.
--- NOTE | 2017-03-16 22:45 | NUR ---
DR WREN AT BEDSIDE.
--- NOTE | 2017-03-16 23:30 | CT SCAN REPORT ---
EXAMINATION: CT ABDOMEN AND PELVIS WITHOUT CONTRAST CLINICAL INFORMATION: Pancreatitis COMPARISON: CT scan abdomen pelvis 05/03/2015. Ultrasound abdomen 03/16/2017 TECHNIQUE: Multidetector volumetric imaging was performed from the superior aspect of the liver through the pubic symphysis. Sagittal and coronal reformatted images were obtained on the technologist's workstation. DLP: 477.25 mGy-cm FINDINGS: LUNG BASES: The visualized lung bases are unremarkable. LIVER, GALLBLADDER, AND BILIARY TREE: The liver is normal in size, shape, and attenuation. No focal hepatic lesion or biliary ductal dilatation is present. The gallbladder is contracted. Multiple small calcified gallstones within the gallbladder. No bile duct dilatation. PANCREAS: There is edema involving the pancreatic head and body with edema in the surrounding peripancreatic fat system with a pancreatitis. No pseudocyst formation. No pancreatic duct dilatation. SPLEEN: Unremarkable. ADRENAL GLANDS: 2 cm nodule in the right adrenal gland with density measurement of -1 Hounsfield unit consistent with adrenal adenoma. Left adrenal gland is normal. KIDNEYS AND URETERS: Cyst in the mid lower pole of the right kidney. This measures 3.8 cm. Has density measurement of 17 Hounsfield units. There is no renal or ureteral calculus. No hydronephrosis. BLADDER: Unremarkable. GASTROINTESTINAL TRACT: No acute change of bowel. No bowel obstruction. No bowel wall thickening or edema. Moderate volume of stool in colon. The appendix is normal. Small bowel loops are unremarkable. ABDOMINAL WALL: No significant hernia is appreciated. LYMPH NODES: Normal. VASCULAR: Atherosclerotic vascular wall calcifications of the aorta and iliac vessels. PELVIC VISCERA: Uterus is anteverted. No adnexal abnormality. OSSEOUS STRUCTURES: Levoscoliosis of lumbar spine. Fusion hardware in spine causing streak artifact. Status post left neck and 8. Perineural cystic change related to the laminectomy of the spine in the central soft tissues of the spine. IMPRESSION: 1. Edema of the pancreas consistent with a pancreatitis. No pseudocyst formation. 2. Cholelithiasis.
--- NOTE | 2017-03-16 23:36 | History & Physical ---
GODWIN MUÑOZ MD 03/16/17 4356: General Information and HPI MD Statement: I have seen and personally examined TATO HENDRIX and documented this H&P. The patient is a 72 year old F who presented with a patient stated chief complaint of [abdominal pain]. Source of Information: patient, old records Exam Limitations: no limitations History of Present Illness: pt is a 72 yo F presenting to the ED c/o abdominal pain. Her pmh is significant for HTN, HLD, Afib, scoloisis (surgically repaired), DVT after surgery for scoliosis. For the past 2 the pt has had mild abdominal discomfort, not described as painful, at around noon today, after consuming some food, there was a sudden onset of 10/10 sharp pain in the upper abdomen that radiated to the R upper abdomen, and to the back. She had one episode of nonbloody emesis around 4 hours after the onset of pain. The pain was not relieved or aggrivated by any positional changes. She also claims that her abdomen feels distended, and she has been constipated for the past 1-2 days, but is normally very regular. She denies chest pain, SOB, headache, diaphoresis, fever, or chills. Allergies/Medications Allergies: Coded Allergies: iodine (Intermediate, SWELLING 09/22/16) shellfish derived (Intermediate, SWELLING 09/22/16) Past History Travel History Traveled to [place] past 21 day No Medical History Neurological: NONE EENT: NONE Cardiovascular: AFIB, hypertension, hyperlipidemia Respiratory: asthma Gastrointestinal: GERD Hepatic: NONE Renal: NONE Musculoskeletal: scoliosis Psychiatric: NONE Endocrine: NONE Blood Disorders: DVT Cancer(s): NONE CARRIER PACKER/Reproductive: NONE Other Medical Hx: Eczema History of MRSA: No History of VRE: No History of CDIFF: No Surgical History Surgical History: , hernia repair-umbilical, spinal surgery hiatal hernia repair Past Family/Social History Family History Relations & Conditions if any MOTHER, . FH: heart disease FATHER, . FH: heart disease Relation not specified for: Patient's father is Psychosocial History Who Do You Live With? child Services at Home: None Primary Language: Yi ETOH Use: denies use Illicit Drug Use: denies illicit drug use Functional Ability ADLs Independent: dressing, eating, toileting, bathing. Ambulation: cane IADLs Independent: shopping, housework, finances, food prep, telephone, transportation , medication admin. Review of Systems Review of Systems Constitutional: Denies: chills, diaphoresis, fever, malaise. EENTM: Denies: blurred vision, eye pain, icterus. Cardiovascular: Denies: chest pain, palpitations. Respiratory: Denies: cough, short of breath. GI: Reports: bloating, distention, nausea, vomiting. Denies: diarrhea, melena, bloody stool. Genitourinary: Denies: dysuria. Musculoskeletal: Reports: back pain. Exam & Diagnostic Data Last 24 Hrs of Vital Signs/I&O Vital Signs Date Time Temp Pulse Resp B/P B/P Pulse O2 O2 Flow FiO2 Mean Ox Delivery Rate 03/17 0100 97.3 65 18 133/67 97 Room Air 03/16 2346 96.7 66 18 145/67 95 Room Air 03/16 2218 96.9 68 16 165/72 96 Room Air 03/16 1951 97.6 80 18 164/75 97 Room Air Intake & Output 03/17 0800 03/17 0000 03/16 1600 Intake Total 0 Output Total Balance 0 Intake, Oral 0 Patient 175 lb Weight Weight Estimated Measurement Method Physical Exam General Appearance Alert, Oriented X3, Cooperative, No Acute Distress Skin No Rashes, No Breakdown, No Significant Lesion Skin Temp/Moisture Exam: Warm/Dry Sepsis Skin Exam (color): Normal for Ethnicity HEENT Atraumatic, PERRLA, EOMI, Mucous Membr. moist/pink Neck Supple, No LAD Cardiovascular Regular Rate, Normal S1, Normal S2, No Murmurs Lungs Clear to Auscultation, Normal Air Movement Abdomen Normal Bowel Sounds, abdominal distension, TTP in the epigastric area and RUQ, positive cook's sign Neurological Normal Speech, Strength at 5/5 X4 Ext, Sensation Intact, Cranial Nerves 3-12 NL Extremities No Clubbing, No Cyanosis, trace edema of the lower extremities Diagnostic Data Other Results CT ABDOMEN AND PELVIS WITHOUT CONTRAST IMPRESSION: 1. Edema of the pancreas consistent with a pancreatitis. No pseudocyst formation. 2. Cholelithiasis. US ABDOMEN LIMITED IMPRESSION: Exam limited by body habitus and bowel gas. Gallbladder is contracted and not seen well. No bile duct dilatation. Assessment/Plan Assessment: pt is a 72 yo F presenting to the ED c/o abdominal pain. Her pmh is significant for HTN, HLD, Afib, scoloisis (surgically repaired), DVT after surgery for scoliosis. For the past 2 the pt has had mild abdominal discomfort, not described as painful, at around noon today, after consuming some food, there was a sudden onset of 10/10 sharp pain in the upper abdomen that radiated to the R upper abdomen, and to the back. #acute pancreatitis amylase 2134, lipase > 10,000 most likely 2/2 gallstone due gallstones seen on CT. pt denies alcohol abuse. less likely ACS with no signs of ischemia on ekg and normal troponins - admit to gen med - aggressive IVF rehydration - pain management - GI consult - r/o ACS with serial ekg and trop - fu lipid panel and crp in AM - NPO #htn - c/w amlodipine #history of afib - c/w amiodarone, eliquis, magnesium supllement #DVT prophylaxis - eliquis #code status - full code As Ranked By This Provider Problem List: 1. HTN (hypertension) 2. Acute pancreatitis Core Measures/Miscellaneous Acute Coronary Syndrome ACS Diagnosis: No Cerebrovascular Accident CVA/TIA Diagnosis: No Congestive Heart Failure CHF Diagnosis: No VTE (View Protocol) VTE Risk Factors: Age > 40, Obesity No [facility] V[facility] prophylaxis d/t: No contraindications No VTE Pharm Prophylaxis d/t: No contraindications VTE Diagnosis: No VTE Type: NONE VTE Confirmed by (Test): NONE Sepsis (View Protocol) Severe Sepsis Present: No Septic Shock Septic Shock Present: No Miscellaneous Documentation Attending Case Discussed With: ADALGISA PARIKH MD Primary Care Physician: PATIENT HAS NO PRIMARY CARE DR Patient sees these Specialists na Level of Patient Care: General Medicine SARAH NIEVES MD 03/17/17 0035: General Information and HPI Allergies/Medications Home Med list Amiodarone HCl 200 MG TABLET 1 TAB PO DAILY aflutter Start taking 200 mg PO daily from 23 October 2016. Amlodipine Besylate (Norvasc) 10 MG TABLET 1 TAB PO DAILY BLOOD PRESSURE ( Reported) Apixaban (Eliquis) 5 MG TABLET 5 MG PO BID afib Atorvastatin Calcium (Lipitor) 10 MG TABLET 1 TAB PO DAILY CHOLESTROL Magnesium Oxide 400 MG TABLET 1 TAB PO DAILY heart lg Resident Review Statement Resident Statement: examined this patient, discussed with creative services intern, agreed with creative services intern, reviewed EMR data (avail), discussed with nursing, reviewed images Other Findings: 72 yo F with past medical history of atrial fibrillation (rate controlled, on Eliquis, recent diagnosis), hypertension, hyperlipidemia, GERD, scoliosis status post surgery complicated by DVT, presented to the emergency department with 3 days history of abdominal discomfort, bloating, and one day of epigastric area pain, nausea and nonbloody bilious vomiting after consuming "milkshake". The pain is described as 9/10, stays in the epigastrium, and radiates to RUQ, and no modifying factors noted paticularly. She does not consume alcohol, does not have past history of gall stones, does not take meds/supplements other then mentioned below. She does admits to history of constipation, having had only one small bowel movement this morning, which was nonbloody but was very hard, last one prior to that was 2 days ago. She has been passing flatus. She denies any fever, chills, chest pain, shortness of breath, palpitation, leg swelling, sick contacts, eating outside, recent travel. At presentation, her blood pressure initially was high at 164/75 with pulse 80, rest of her vitals were within normal limits. Physical examination is positive for abdominal distention and mild epigastric and right upper quadrant tenderness , Cook's sign positive but no peritonism, trace pedal edema bilaterally, but rest of the examination is within normal limits. Her EKG is significant for QTC 521, shows sinus rhythm at 75, ST-T changes: lead V3 has more pronounced T-wave inversion then the last EKG, leads V4 and V5 have new T-wave inversions, old right bundle branch block, RI 196, and QRS 128. Her labs shows normal CBC with WBC 7.6, H&H 12.9/32.9, platelet 269, chemistry: Sodium 140, low potassium at 3.3, BUN 12, creatinine 0.7, glucose 113, triglycerides 44, amylase 2134, lipase > 10,000, calcium 9.0, albumin 3.9, normal troponin. Ultrasound of the abdomen done in the ED was limited, gallbladder was contracted and no bile duct was visualized. CAT scan of abdomen done later showed edema of the pancreas consistent with pancreatitis, no pseudocyst, multiple calcified cholelithiasis, no bile duct agitation. In the emergency department, she will received 2 L of normal saline, ondansetron IV for nausea, and ketorolac IV for pain, which seemed to have helped him moderately. Currently, the patient is being admitted in the general medical floor for management of following issues: # Acute pancreatitis The patient's clinical picture is suspicious of many differentials, including acute pancreatitis, ACS, hepatitis, cholecystitis, PUD, perforated viscus, among others. The lipase level was high enough for the diagnosis of acute pancreatitis without complications. Her vitals are stable, she is alert and oriented, her pain is already getting better, no leukocutosis, hct is 39.2, glucose 113, calcium 9.0, thus her condition can be categorized as mild pancreatitis, and can be managed in the general medical floor as compared to the ICU. * Admit patient in the general medical floor * Regular vitals, input output measurements * IV fluids with lactated Ringer at 200 and the per hour for 2 more liters, to be reassessed in the morning * Adequate pain management with 1 mg of IV morphine for moderate pain and 2 mg of IV morphine for severe pain * Nothing by mouth for now, giving bowel a rest * Call GI consultation in the morning * After acute pancreatitis subsides during this admission, she might be a candidate for cholecystectomy before discharge * Follow up lipid panel, CRP in AM #Rule out atypical ACS Patient is a female presenting with acute epigastric pain, nausea, vomiting, requiring opiate medications, and has a history of cardiac disease (atrial fibrillation), thus ACS needs to be ruled out. * Will repeat troponin and EKG to rule out ACS #Hypertension Patient does not take her medication amlodipine 10 mg regularly, thus for now we are starting her amlodipine at 5 mg daily. Need to reassess the dosage before discharge. #Atrial fibrillation Continue taking amiodarone 200 mg daily, continue Eliquis 5 mg by mouth twice a day, continue magnesium supplement 400 mg by mouth daily #Hyperlipidemia Patient has stopped taking statin on her own, and currently refuses to take any. Need to reassess the situation in the morning. #Diet: Nothing by mouth for now #DVT prophylaxis: Eliquis #CODE STATUS: Full code ADALGISA PARIKH 03/17/17 0557: Attending MD Review Statement Attending Statement Attending MD Statement: examined this patient, discuss w/resident/PA/MANAGER PROCESS EXCELLENCE, agreed w/resident/PA/MANAGER PROCESS EXCELLENCE, reviewed EMR data (avail), reviewed images, amended to note Attending Assessment/Plan: CC: Acute abdominal pain PMH: HTN, HLD, scoliosis S/P surgery, DVT, A. fib Patient came to ER with 1-2 day history of abdominal discomfort but this afternoon abdominal pain was very severe 10 on 10 intensity, sharp, radiating to back it was followed by one episode of nausea and vomiting which was nonbloody but bilious. Pain was very severe so patient came to ER. Patient did never had similar kind of pain in the past, no problems with the gallbladder either. She Denies chest pain, shortness of breath, palpitations, diarrhea. She feels abdomen bloated, mild constipation Vitals: Afebrile, pulse in 60s, RR 18, blood pressure 165/72, saturating well on room air. On exam: A O 3, cooperative, no acute distress, neck supple, JVD normal, no lymphadenopathy, mucosa moist, no focal neurological deficit, no dependent edema , no obvious skin rashes or inflammation CVS: S1-S2, RRR. RS: Clear to auscultate bilaterally. Abdomen: Soft, epigastric tenderness, Cook's sign positive, bowel sounds present. Peripheral pulses perfusion normal Labs: CBC unremarkable, hematocrit 39.2 except neutrophils 90%, sodium 140, potassium 3.3, chloride 105, bicarbonate 26, BUN 12, creatinine 0.7, anion gap 9 , glucose 113, AST 314, ALT 173, alkaline phosphatase 196, lipase more than 10, 000 Alcohol level negative Ultrasound abdomen: Exam limited by body habitus and bowel gas. Gallbladder is contracted and not seen well. No bile duct dilatation CT abdomen and pelvis without IV contrast: 1. Edema of the pancreas consistent with a pancreatitis. No pseudocyst formation. 2. The gallbladder is contracted. Multiple small calcified gallstones within the gallbladder. No bile duct dilatation. A and P 72-year-old female presented in ER with acute sharp epigastric pain radiating to back. Vitals stable. Cook's sign positive patient had significant transaminitis along with elevated lipase. Mildly dehydrated on examination but BUN, creatinine, hematocrit, bicarbonate in normal range. CT shows evidence of pancreatitis. It appears that patient has gallstone pancreatitis. Gallbladder is contracted on imaging, ? Further imaging with HIDA or MRCP for evaluation for acute cholecystitis. Patient will eventually need cholecystectomy once pancreatitis is improving. Bilirubin normal, no fever, no significant leukocytosis : No evidence of additional cholangitis, no need of antibiotics. + Acute gall stone pancreatitis + History of HTN, HLD, scoliosis, DVT, A. fib - Admit to general medicine - Continue aggressive hydration with Ringer's lactate, 200 mL to 250 mL per hour - Check lipid profile - GI consult in a.m. - Repeat CBC BMP LFT in a.m. - Aggressive pain management with opiates - Nothing by mouth - Continue all her home medications - When necessary Zofran or Phenergan for nausea - DVT prophylaxis patient on Eliquis
--- NOTE | 2017-03-16 23:53 | NUR ---
PT RESTING ON STRETCHER. DENIES ANY COMPLAINTS AT THIS TIME. NS INFUSION #2 INITIATED. WILL CONTINUE TO MONITOR.
[2017-03-17] MEDS ORDERED: NORVASC10 M1 PO (00:11)
--- NOTE | 2017-03-17 00:24 | NUR ---
PT'S RM ASSIGNMENT 225 BED 01
--- NOTE | 2017-03-17 00:25 | NUR ---
HOUSESTAFF AT BEDSIDE FOR EVAL.
--- NOTE | 2017-03-17 00:58 | NUR ---
REPORT GIVEN TO RIA TAYLOR ON GEN MED.
[2017-03-17 01:25] VITALS: BP 160/88
--- NOTE | 2017-03-17 05:59 | Admission Certification ---
Admission Certification Certification Statement - As attending physician, I certify that at the time of - admission, based on clinical presentation, severity of - symptoms, need for further diagnostic testing and - therapeutic interventions, and risk of adverse outcomes - without in-hospital treatment, in my clinical assessment, - this patient requires an acute hospital stay for a minimum - of two nights or longer. I have also considered psychsocial - factors such as support system, advanced age, financial - issues, cognitive issues, and failed out-patient treatments, - past re-admission history, safety of patient, and lack of - compliance as applicable. Specific rationale supporting this admission is: Acute gallstone pancreatitis
[2017-03-17 06:00] VITALS: BP 136/78
--- NOTE | 2017-03-17 08:44 | NUR ---
0120 ADMITTED FROM ER VIA STRETCHER TO ROOM 225.72 YRS OLD BF FROM HOME.A&OX3. NS INFUSING FROM ER.ON RA.DENIES PAIN ON ADMISSION.NPO FOR DX.PANCREATITIS.ORIENTED TO ROOM & SURROUNDING.PT OOB INDEPENDENTLY WITH CANE.SEEN BY .SETTLED TO SLEEP.
--- NOTE | 2017-03-17 11:11 | PN- Housestaff ---
Subjective Follow-up For: Pancreatitis Subjective: Patient is stable, vitals within normal limits. Still has some abdominal discomfort but denies any fever, chills, nausea, vomiting, diarrhea, shortness of breath or overnight events. Review of Systems Constitutional: Reports: no symptoms. EENTM: Reports: no symptoms. Cardiovascular: Reports: no symptoms. Respiratory: Reports: no symptoms. Gastrointestinal: Reports: see HPI. Genitourinary: Reports: no symptoms. Musculoskeletal: Reports: no symptoms. Skin: Reports: no symptoms. Neurological/Psychological: Reports: no symptoms. Hematologic/Endocrine: Reports: no symptoms. Immunologic/Allergic: Reports: no symptoms. Objective Last 24 Hrs of Vital Signs/I&O Vital Signs Date Time Temp Pulse Resp B/P B/P Pulse O2 O2 Flow FiO2 Mean Ox Delivery Rate 03/17 1415 98.2 54 20 120/63 95 Room Air 03/17 0908 70 120/70 03/17 0908 70 120/70 03/17 0600 98.0 58 18 136/78 95 Room Air 03/17 0200 96 Room Air 03/17 0125 98.3 75 18 160/88 96 Room Air 03/17 0125 98.3 75 18 160/88 96 Room Air 03/17 0100 97.3 65 18 133/67 97 Room Air 03/16 2346 96.7 66 18 145/67 95 Room Air 03/16 2218 96.9 68 16 165/72 96 Room Air 03/16 1951 97.6 80 18 164/75 97 Room Air Intake & Output 03/17 1600 03/17 0800 03/17 0000 Intake Total 800 1550 0 Output Total Balance 800 1550 0 Intake, IV 800 1400 Intake, Oral 150 0 Number 0 Bowel Movements Patient 175 lb 175 lb Weight Weight Reported by Patient Estimated Measurement Method Physical Exam General Appearance: Alert, Oriented X3, Cooperative Skin: No Rashes, No Breakdown HEENT: Atraumatic, PERRLA, EOMI, Mucous Membr. moist/pink Neck: Supple, No JVD, No thryomegaly Cardiovascular: Regular Rate, Normal S1, Normal S2, No Murmurs Lungs: Clear to Auscultation, Normal Air Movement Abdomen: Normal Bowel Sounds, Soft, No Hepatospenomegaly, No Masses, tenderness in epigastric area and right upper quadrant. Assessment/Plan Assessment: pt is a 72 yo F presenting to the ED c/o abdominal pain. Her pmh is significant for HTN, HLD, Afib, scoloisis (surgically repaired), DVT after surgery for scoliosis. For the past 2 the pt has had mild abdominal discomfort, not described as painful, at around noon today, after consuming some food, there was a sudden onset of 10/10 sharp pain in the upper abdomen that radiated to the R upper abdomen, and to the back. #acute pancreatitis amylase 2134, lipase > 10,000 most likely 2/2 gallstone but no gallstones seen on CT(most likely passed on its own). Pt denies alcohol abuse. less likely ACS with no signs of ischemia on ekg and normal troponins -Patient is NPO and on IV fluids. -Pain management with morphine -GI consult; awaiting recommendations. -Repeat EKG normal and serial troponins were negative. #Transaminitis: We'll continue to monitor. #Hypokalemia: Replete with 20 mEq IV potassium. #htn - c/w amlodipine #history of afib - c/w amiodarone, eliquis, magnesium supllement -DVT prophylaxis: on eliquis -Patient is full code Problem List: 1. Pancreatitis 2. Paroxysmal atrial fibrillation 3. HTN (hypertension) 4. HLD (hyperlipidemia) Pain Ratin Pain Location: Abdomen Pain Goal: Remain pain free Pain Plan: Pain pathway Tomorrow's Labs & Rationales: CBC(pancreatitis)
--- NOTE | 2017-03-17 12:47 | NUR ---
SHIFT NOTE: PT A/V/OX3. ON RA. LUNGS CLEAR. REMAINS NPO. +BS, PT THINKS SHE IS PASSING GAS. NO BM NOTED. C/O 0 PAIN TO ABD. #24 TO RH INFUSING WITH LR @ 100ML/HR X2 BAG, SECOND BAG ALMOST FINISHED. VITAL SIGNS STABLE. UNDERSTANDS POC. IND OOB. SAFETY PRECAUTIONS MAINTAINED.
--- NOTE | 2017-03-17 13:56 | PN- Att Addend ---
Attending MD Review Statement Attending Statement Attending MD Statement: examined this patient, discuss w/resident/PA/STUMP BLOWER, agreed w/resident/PA/STUMP BLOWER, reviewed EMR data (avail), discussed w/nursing, discussed w/ case mgmt Attending Assessment/Plan: 72 yr old female admitted with acute pancreatitis with CT scan finidngs of cholelithiasis. Pt may have passes the stone and feels her pain is better. Pt was having dyspepsia and bloating sensation after eating for the last 2 weeks prior to admission. Will f/u on GI recommendations. d/w pt the care plan.
[2017-03-17 14:15] VITALS: BP 120/63
--- NOTE | 2017-03-17 16:00 | Discharge Summary ---
Visit Information Visit Dates Admission Date: 03/16/17 Discharge Date: 03/17/17 Hospital Course Course Attending Physician: ADALGISA PARIKH MD Primary Care Physician: PATIENT HAS NO PRIMARY CARE DR Hospital Course: 72 yo F with past medical history of atrial fibrillation (rate controlled, on Eliquis, recent diagnosis), hypertension, hyperlipidemia, GERD, scoliosis status post surgery complicated by DVT, presented to the emergency department with 3 days history of abdominal discomfort, bloating, and one day of epigastric area pain, nausea and nonbloody bilious vomiting after consuming a "milkshake." At presentation, her blood pressure initially was high at 164/75 with pulse 80, rest of her vitals were within normal limits. Physical examination is positive for abdominal distention and mild epigastric and right upper quadrant tenderness , Cook's sign positive but no peritonism, trace pedal edema bilaterally, but rest of the examination is within normal limits. Her EKG is significant for QTC 521, shows sinus rhythm at 75, ST-T changes: lead V3 has more pronounced T-wave inversion then the last EKG, leads V4 and V5 have new T-wave inversions, old right bundle branch block, VA 196, and QRS 128. Her labs shows normal CBC with WBC 7.6, H&H 12.9/32.9, platelet 269, chemistry: Sodium 140, low potassium at 3.3, BUN 12, creatinine 0.7, glucose 113, triglycerides 44, amylase 2134, lipase > 10,000, calcium 9.0, albumin 3.9, normal troponin. Ultrasound of the abdomen done in the ED was limited, gallbladder was contracted and no bile duct was visualized. CAT scan of abdomen done later showed edema of the pancreas consistent with pancreatitis, no pseudocyst, multiple calcified cholelithiasis, no bile duct agitation. In the emergency department, she will received 2 L of normal saline, ondansetron IV for nausea, and ketorolac IV for pain, which seemed to have helped him moderately. The patient was admitted to general medicine and treated for the following problems: #Acute Pancreatitis: On presentation, the patient had physical exam, laboratories, and radiographic imaging consistent with pancreatitis without complications. In the ED she was given ketorolac, ondansetron, and normal saline bolus. She was made nothing by mouth and her pain and nausea was treated adequately. GI was also consulted and they recommended doing an MRCP(which showed gallstones without any evidence of obstructing stone or mass).The etiology of the pancreatitis is is likely a gallbladder stone that passed. Her pain has subsequently subsided and is now feeling better. Surgery was consulted and they recommended an elective cholecystectomy as an outpatient once the patient is off of Eliquis. Patient was instructed to follow-up with Dr. Ashby within 1-2 weeks of discharge to schedule her cholecystectomy. #Rule out atypical ACS: On presentation it was initially thought that she may have acute coronary syndrome given her epigastric pain, nausea, vomiting requiring opiate medications and a history of cardiac disease (his atrial fibrillation). However EKG and troponins 3 were negative. His symptoms are likely due to pancreatitis. Incidental right adrenal adenoma: Patient was on to have a 2 cm nodule in the right adrenal gland with density measurement of -1 Hounsfield unit consistent with adrenal adenoma on CT abdomen and pelvis. Follow-up with PCP. #Chronic medical problems: Hypertension, atrial fibrillation, hyperlipidemia: The following medications were continued or held as below Started her on amlodipine 5 mg daily, continued amiodarone 200 mg daily, continued on enoxaparin 5 mg twice a day, continued magnesium supplement. Statin was offered but the patient refused. Patient was on requests for DVT prophylaxis. Patient is full code. Allergies: Coded Allergies: iodine (Intermediate, SWELLING 09/22/16) shellfish derived (Intermediate, SWELLING 09/22/16) Significant Procedures: MRCP: IMPRESSION: 1. Above findings are consistent with interstitial pancreatitis involving the pancreatic head with mild surrounding peripancreatic edema. No evidence of focal peripancreatic fluid collection or variant ductal anatomy. No evidence of obstructing stone or mass. 2. Gallbladder contracted with several gallstones seen in the lumen. No evidence of cholecystitis or biliary obstruction or choledocholithiasis. 3. Diffuse nodular hypertrophy of the right adrenal gland. 4. Bilateral renal cysts. Disposition Summary Disposition Principal Diagnosis: Acute pancreatitis secondary to gallbladder stones Additional Diagnosis: Hypertension, hyperlipidemia, atrial fibrillation Discharge Disposition: home or self care Discharge Instructions General Discharge Information Code Status: Full Code Patient's Diet: Heart healthy diet Patient's Activity: As tolerated Follow-Up Instructions/Appts: Please call you surgeon Dr Ashby next week to schedule a surgery date. He will let you know when to stop the blood thinner you prior to surgery. Please continue taking all your medications until then. Please follow-up with your PCP within a week after discharge. Please follow-up with your trials manager within a week after discharge. Medications at Discharge Discharge Medications: Continue taking these medications: Magnesium Oxide (Magnesium Oxide) 400 MG TABLET 1 Tablet ORAL DAILY Qty = 30 Comments: Last Taken: 03/19/17 Time: 10:00 AM Apixaban (Eliquis) 5 MG TABLET 5 Milligram ORAL TWICE DAILY Qty = 30 Comments: NOT GIVEN IN HOSPITAL Amiodarone HCl (Amiodarone HCl) 200 MG TABLET 1 Tablet ORAL DAILY Qty = 30 Instructions: Start taking 200 mg PO daily from 23 October 2016. Comments: Last Taken: 03/19/17 Time: 10:00 AM Atorvastatin Calcium (Lipitor) 10 MG TABLET 1 Tablet ORAL DAILY Qty = 30 Comments: NOT GIVEN IN HOSPITAL Amlodipine Besylate (Norvasc) 10 MG TABLET 1 Tablet ORAL DAILY Comments: Last Taken: 03/19/17 Time: 10:00 AM Copies To: KYMBERLY PEREZ,TIN ASHBY MD,ARCELIA Montaño; ARELI PEREZ,ALYCIA Alvarenga
--- NOTE | 2017-03-17 16:29 | Cons- Gastroenterology ---
General Information and HPI Consulting Request Date of Consult: 03/17/17 Requested By: ADALGISA PARIKH MD Reason for Consult: I was notified earlier this morning by the hospitalist service of a request for an elective GI consult to assess pancreatitis. Source of Information: patient, old records Exam Limitations: no limitations History of Present Illness: 72 y/o -[place] female, PAF, HTN, HLD, asthma, remote postop DVT 2010 at the time of spinal surgery, known gallstones, previously in [facility] 2014 for biliary colic, on outpatient Amiodarone, Amlodipine, Atorvastatin, Eliquis, & HCTZ (without any new medications or NSAIDs), who presented to the [place] ER 03/16/17 at 7:32 p.m., complaining of sharp, mid-epigastric pain radiating to the RUQ & back, associated with nausea and vomiting x 1, with contents showing partially digested food, no blood or bile from above, nor any melena. The pain started the a.m. 03/16/17, and persisted for hours. She ate salami for lunch, followed by worsening pain "10 out of 10," and she presented to the ER later that evening. She has had vague bloating & fatigue, otherwise, no fevers, chills, weight loss, GERD (stable on Pepcid), odynophagia, dysphagia, early satiety, diartrhea, obstipation, tenesmus, or BRBPR. 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 She reportedly had an EGD/colonoscopy more than 10 years ago in [facility], both reportedly "normal." She denied any history of PUD, jaundice, dark urine, light stool, or pruritus. There was no chest pain, shortness of breath, or diaphoresis. There was no positional component. There is no history of EtOH. Ex-5 pk yr cigarette smoker, D/C 2005. There is no family history of any GI malignancy, GI disease, inherited pancreatitis, sickle cell, or inherited liver disease. The patient denied any previous knowledge of elevated LFTs, hepatitis, tattoos, IVDA, or needle piercings. Upon arrival, BP 164/75, P 80, R 18, T 96.9, O2 sat RA 97%. She received IV Toradol, Zofran, & IV NS in the ER. 03/16/17: WBC 7.6, H/H 12.9/39.2, MCV 90.1, PLT 269, glu 113, BUN/Cr 12/0.7, GFR > 60, Na 140, K 3.3, HCO3 26, AG 9, amylase 2134, lipase > 10K, Ca 9.0, albumin 3.9, globulin 3.1, *TG 44, TBil 0.8, alk phos 196, AST 314, ALT 173, *LDH 1557, troponin < 0.01, [EtOH] < 10, CRP 1.2. *CBC was not repeated on 03/17/17 (*need to watch for hemoconcentration). 03/17/17: BUN/Cr 9/0.7, GFR >60, Na 142. K 3.1, HCO3 27, AG 7, Mg 1.8, PO4 3.0, albumin 3.3, globulin 2.8, TChol 191, TG 43, HDL 46, LDL 137, TBil 0.6, DBil 0.3 , alk phos 166, AST 169, ALT 129, troponin < 0.01. 03/16/17; EKG- NSR @77, normal axis, LAE, RBBB, diffuse flipped T waves 03/17/17: EKG- NSR @ 60,normal axis, LAE, RBBB, diffuse flipped T waves, w/o signif change. 03/16/17: US ABDOMEN LIMITED- Exam limited by body habitus and bowel gas. Gallbladder is contracted and not seen well. No bile duct dilatation. CBD 4 mm. Normal liver. 03/16/17: CT ABD & PELVIS W/O IV CONTRAST (*per ER, limited utility in evaluating pancreas without IV contrast, but patient has iodine allergy)- 1. Edema of the pancreas consistent with a pancreatitis. No pseudocyst formation. No pancreatic duct dilatation. 2. Cholelithiasis. The gallbladder is contracted. Multiple small calcified gallstones within the gallbladder. No bile duct dilatation. 3. Incidental 2 cm right adrenal adenoma & right renal cyst. 4. Normal AP. 5. Clear lung bases without pleural effusion. 6. Levoscoliosis of L spine with fusion hardware. 7. ASHD of aortoiliac vessels. Allergies/Medications Allergies: Coded Allergies: iodine (Intermediate, SWELLING 09/22/16) shellfish derived (Intermediate, SWELLING 09/22/16) Home Med List: Amiodarone HCl 200 MG TABLET 1 TAB PO DAILY aflutter Start taking 200 mg PO daily from 23 October 2016. Amlodipine Besylate (Norvasc) 10 MG TABLET 1 TAB PO DAILY BLOOD PRESSURE ( Reported) Apixaban (Eliquis) 5 MG TABLET 5 MG PO BID afib Atorvastatin Calcium (Lipitor) 10 MG TABLET 1 TAB PO DAILY CHOLESTROL Magnesium Oxide 400 MG TABLET 1 TAB PO DAILY heart lg Current Medications: Current Medications Sig/Zoila Start time Last Medication Dose Route Stop Time Status Admin Acetaminophen 650 MG Q6P PRN 03/17 0030 DC PO Amiodarone HCl 200 MG DAILY 03/17 1000 AC 03/17 PO 0908 Amlodipine Besylate 10 MG DAILY 03/17 1000 DC PO Amlodipine Besylate 5 MG DAILY 03/17 1000 AC 03/17 PO 0908 Apixaban 5 MG BID 03/17 1000 AC 03/17 PO 0908 Famotidine 20 MG BID 03/17 0345 AC 03/17 IV 0908 Ketorolac 15 MG Q6P PRN 03/17 0030 DC Tromethamine IV Ketorolac 0 .STK-MED ONE 03/16 2008 DC Tromethamine .ROUTE Ketorolac 15 MG ONCE ONE 03/16 2000 DC 03/16 Tromethamine IV 03/16 Lactated Ringer's 1,000 ML Q10H 03/17 0130 AC 03/17 IV 03/17 2129 0700 Magnesium Oxide 400 MG DAILY 03/17 1000 AC 03/17 PO 0908 Morphine Sulfate 1 MG Q6P PRN 03/17 0130 AC IV Morphine Sulfate 2 MG Q4P PRN 03/17 0030 AC IV Ondansetron HCl 4 MG Q6P PRN 03/17 0030 DC IV Ondansetron HCl 0 .STK-MED ONE 03/16 2008 DC .ROUTE Ondansetron HCl 4 MG ONCE ONE 03/16 2000 DC 03/16 IV 03/16 Potassium Chloride 40 MEQ ONCE ONE 03/175 DC 03/17 PO 03/17 316 0517 Promethazine HCl 12.5 MG Q6-PRN PRN 03/17 0130 AC IV 03/24 0129 Sodium Chloride 1,000 ML ONCE ONE 03/16 2330 DC 03/16 IV 03/17 0609 2352 Sodium Chloride 1,000 ML BOLUS ONE 03/16 2000 DC 03/16 IV 03/16 Past History Travel History Traveled to [place] past 21 day No Medical History Blood Transfusion Hx: No Neurological: NONE EENT: NONE Cardiovascular: AFIB (PAF), hypertension, hyperlipidemia, CHEST PAIN Respiratory: asthma Gastrointestinal: constipation, GERD, pancreatitis Hepatic: cholelithiasis Renal: NONE Musculoskeletal: fracture, scoliosis ARTHRITIS Psychiatric: NONE Endocrine: NONE Blood Disorders: NONE (LLE 2011- postop spine surgery), DVT Cancer(s): NONE 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 , Age 83; Cause: ASHD (arteriosclerotic heart disease). FH: heart disease FATHER (HTN). , Age 87; Cause: ASHD (arteriosclerotic heart disease). FH: heart disease Relation not specified for: Patient's father is Psychosocial History Where Do You Live? Home Who Do You Live With? spouse (son), child Services at Home: None Primary Language: Maldivian Smoking Status: Former Smoker ETOH Use: denies use Illicit Drug Use: denies illicit drug use Living Will? 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 2 sons & 1 daughter- alive and well. Lives with son. Ex-5 pk yr cigarette smoker, stopped 2005. No EtOH. No drugs. No IVDA. 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 Ambulation: cane IADLs Independent: shopping, housework, finances, food prep, telephone, transportation , medication admin. Employment History Employment: Retired Profession/Employer: worked for [employer]. ECHO Results (as available) Date of last Echo 09/24/16 EF% 60 Review of Systems Review of Systems: Full 14 point review of systems otherwise noncontributory, and as above. Review of Systems Constitutional: Reports: malaise. Denies: chills, diaphoresis, fever, weakness, unexplained weight loss. EENTM: Denies: blurred vision, double vision, visual changes, eye pain, eye drainage, eye tearing, icterus, ear discharge, ear pain, ear redness, hearing changes, nasal congestion, epistaxis, nasal pain, throat pain, throat swelling, mouth pain, tooth pain. Cardiovascular: Denies: chest pain, edema, orthopena, palpitations, peripheral edema, syncope. Respiratory: Denies: cough, hemoptysis, orthopnea, short of breath, sputum production, stridor, wheezing. GI: Reports: abdominal pain, bloating, nausea, vomiting. Denies: constipation, diarrhea, distention, bowel incontinence, melena, bloody stool, changes in stool , steatorrhea. Genitourinary: Denies: discharge, dysuria, frequency, hematuria, hesitation, nocturia, pain, urgency. Musculoskeletal: Reports: back pain (chronic). Denies: gout, joint pain, joint swelling, muscle pain, muscle stiffness, neck pain. Skin: Denies: cysts, change in skin color, change in hair/nails, dryness, erythema, jaundice, lesions, lymphangitis, lumps, moles, rash. Neurological/Psychological: Denies: anxiety, ataxia, cognitive dysfunction, confusion, depressed, dementia, emotional problems, headache, numbness, paresthesia, pre-existing deficit, petit mal seizures, tingling, tremors, tonic-clonic seizures, unable to move lower ext , unable to move upper ext, weakness. Hematologic/Endocrine: Denies: bruising, bleeding, polyuria, polydipsia. Immunologic/Allergic: Denies: splenectomy, HIV/AIDS, lymphadenopathy. All Other Systems: Reviewed and Negative Exam & Diagnostic Data Vital Signs and I&O Vital Signs Date Time Temp Pulse Resp B/P B/P Pulse O2 O2 Flow FiO2 Mean Ox Delivery Rate 03/17 1415 98.2 54 20 120/63 95 Room Air 03/17 0908 70 120/70 03/17 0908 70 120/70 03/17 0600 98.0 58 18 136/78 95 Room Air 03/17 0200 96 Room Air 03/17 0125 98.3 75 18 160/88 96 Room Air 03/17 0125 98.3 75 18 160/88 96 Room Air 03/17 0100 97.3 65 18 133/67 97 Room Air 03/16 2346 96.7 66 18 145/67 95 Room Air 03/16 2218 96.9 68 16 165/72 96 Room Air 03/16 1951 97.6 80 18 164/75 97 Room Air Intake & Output 03/17 04003/16 040 Intake Total 2350 0 Output Total Balance 2350 0 Intake, IV 2200 Intake, Oral 150 0 Number 0 Bowel Movements Patient 175 lb Weight Weight Reported by Patient Measurement Method Physical Exam: Well-developed, well-nourished, pleasant female, in no apparent distress. Non-toxic appearing. Sclera anicteric. Conjunctiva pink. Oropharynx clear. No oral thrush. No aphthous ulcers. Slightly dry mucus membranes. There is no adenopathy, thyromegaly, or JVD. No peripheral stigmata of inflammatory bowel disease or chronic liver disease on exam. No spiders on the anterior chest wall. No CVA tenderness. Lungs: clear to A&P. Heart exam: regular rate rhythm (currently in NSR), S1 and S2, without any significant murmur. Breast & pelvic exams: API. Abdominal exam: normal bowel sounds, soft belly, mild to moderate epigastric > RUQ tenderness, without guarding or rebound. No mass. No organomegaly. Negative Cook sign. Multiple scars. No fluid shift. No pulsatile mass. No epigastric bruit. Digital rectal exam: deferred by patient. Extremities: without C, C, or E. DJD. No palpable cords. No palmar erythema. No Dupuytren's contractures. Distal pulses 2+ bilaterally. DTRs 2+ bilaterally. Alert and oriented x 3. No tremor or asterixis. A detailed neurologic exam (post remote spinal surgery) was deferred. Results Pertinent Lab Results: Laboratory Tests 03/17 03/17 03/17 0830 0445 0300 Chemistry Sodium (137 - 145 mmol/L) 142 Potassium (3.5 - 5.1 mmol/L) 3.1 L Chloride (98 - 107 mmol/L) 108 H Carbon Dioxide (22 - 30 mmol/L) 27 Anion Gap (5 - 16) 7 BUN (7 - 17 mg/dL) 9 Creatinine (0.5 - 1.0 mg/dL) 0.7 Estimated GFR (>60 ml/min) > 60 BUN/Creatinine Ratio (7 - 25 %) 12.9 Phosphorus (2.5 - 4.5 mg/dL) 3.0 Magnesium (1.6 - 2.3 mg/dL) 1.8 Total Bilirubin (0.2 - 1.3 mg/dL) 0.6 Direct Bilirubin (< 0.4 mg/dL) 0.3 AST (14 - 36 U/L) 169 H ALT (9 - 52 U/L) 129 H Alkaline Phosphatase (<127 U/L) 166 H Troponin I (< 0.11 ng/ml) < 0.01 < 0.01 Cancelled C-React Prot High Sens (1.0 - 3.0 mg/L) > 15.0 H Total Protein (6.3 - 8.2 g/dL) 6.1 L Albumin (3.5 - 5.0 g/dL) 3.3 L Triglycerides (<150 mg/dL) 43 Cholesterol (<200 MG/DL) 191 LDL Cholesterol, Calc (65 - 129 mg/dL) 137 H HDL Cholesterol (40 - 60 mg/dL) 46 Cholesterol/HDL Ratio (0.00 - 4.23 %) 4 03/160 Chemistry Sodium (137 - 145 mmol/L) 140 Potassium (3.5 - 5.1 mmol/L) 3.3 L Chloride (98 - 107 mmol/L) 105 Carbon Dioxide (22 - 30 mmol/L) 26 Anion Gap (5 - 16) 9 BUN (7 - 17 mg/dL) 12 Creatinine (0.5 - 1.0 mg/dL) 0.7 Estimated GFR (>60 ml/min) > 60 BUN/Creatinine Ratio (7 - 25 %) 17.1 Glucose (65 - 99 mg/dL) 113 H Calcium (8.4 - 10.2 mg/dL) 9.0 Total Bilirubin (0.2 - 1.3 mg/dL) 0.8 AST (14 - 36 U/L) 314 H ALT (9 - 52 U/L) 173 H Alkaline Phosphatase (<127 U/L) 196 H Lactate Dehydrogenase (313 - 618 U/L) 1557 H Troponin I (< 0.11 ng/ml) < 0.01 C-Reactive Prot, Quant (<1.0 mg/dL) 1.2 H Total Protein (6.3 - 8.2 g/dL) 7.0 Albumin (3.5 - 5.0 g/dL) 3.9 Globulin (1.9 - 4.2 gm/dL) 3.1 Albumin/Globulin Ratio (1.1 - 2.2 %) 1.3 Triglycerides (<150 mg/dL) 44 Amylase (30 - 110 U/L) 2134 H Lipase (23 - 300 U/L) > 14401 H Hematology CBC w Diff NO MAN DIFF REQ WBC (4.8 - 10.8 /CUMM) 7.6 RBC (4.20 - 5.40 /CUMM) 4.34 Hgb (12.0 - 16.0 G/DL) 12.9 Hct (37 - 47 %) 39.2 MCV (81.0 - 99.0 FL) 90.1 MCH (27.0 - 31.0 PG) 29.6 RDW (11.5 - 14.5 %) 14.7 H Plt Count (130 - 400 /CUMM) 269 MPV (7.4 - 10.4 FL) 9.2 Gran % (42.2 - 75.2 %) 90.0 H Lymphocytes % (20.5 - 51.1 %) 8.5 L Monocytes % (1.7 - 9.3 %) 1.3 L Eosinophils % (0 - 5 %) 0.1 Basophils % (0.0 - 2.0 %) 0.1 Absolute Granulocytes (1.4 - 6.5 /CUMM) 6.8 H Absolute Lymphocytes (1.2 - 3.4 /CUMM) 0.6 L Absolute Monocytes (0.10 - 0.60 /CUMM) 0.1 L Absolute Eosinophils (0.0 - 0.7 /CUMM) 0 Absolute Basophils (0.0 - 0.2 /CUMM) 0 PUBS MCHC (33.0 - 37.0 G/DL) 32.9 L Toxicology Serum Alcohol (<10 MG/DL) < 10.0 Imaging/Other Studies: 03/16/17; EKG- NSR @77, normal axis, LAE, RBBB, diffuse flipped T waves 03/17/17: EKG- NSR @ 60,normal axis, LAE, RBBB, diffuse flipped T waves, w/o signif change. 03/16/17: US ABDOMEN LIMITED- Exam limited by body habitus and bowel gas. Gallbladder is contracted and not seen well. No bile duct dilatation. CBD 4 mm. Normal liver. 03/16/17: CT ABD & PELVIS W/O IV CONTRAST (*per ER, limited utility in evaluating pancreas without IV contrast, but patient has iodine allergy)- 1. Edema of the pancreas consistent with a pancreatitis. No pseudocyst formation. No pancreatic duct dilatation. 2. Cholelithiasis. The gallbladder is contracted. Multiple small calcified gallstones within the gallbladder. No bile duct dilatation. 3. Incidental 2 cm right adrenal adenoma & right renal cyst. 4. Normal AP. 5. Clear lung bases without pleural effusion. 6. Levoscoliosis of L spine with fusion hardware. 7. ASHD of aortoiliac vessels. Assessment/Plan Assessment/Recommendations: 72 y/o -[place] female, PAF, HTN, HLD, asthma, remote postop DVT 2010 at the time of spinal surgery, known gallstones, previously in [facility] 2014 for biliary colic, on outpatient Amiodarone, Amlodipine, Atorvastatin, Eliquis, & HCTZ (without any new medications or NSAIDs), who presented to the [place] ER 03/16/17 at 7:32 p.m., complaining of sharp, mid-epigastric pain radiating to the RUQ & back, associated with nausea and vomiting x 1, with contents showing partially digested food, no blood or bile from above, nor any melena. The pain started the a.m. 03/16/17, and persisted for hours. She ate salami for lunch, followed by worsening pain "10 out of 10," and she presented to the ER later that evening. She has had vague bloating & fatigue, otherwise, no fevers, chills, weight loss, GERD (stable on Pepcid), odynophagia, dysphagia, early satiety, diartrhea, obstipation, tenesmus, or BRBPR. 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 She reportedly had an EGD/colonoscopy more than 10 years ago in [facility], both reportedly "normal." She denied any history of PUD, jaundice, dark urine, light stool, or pruritus. There was no chest pain, shortness of breath, or diaphoresis. There was no positional component. There is no history of EtOH. Ex-5 pk yr cigarette smoker, D/C 2005. There is no family history of any GI malignancy, GI disease, inherited pancreatitis, sickle cell, or inherited liver disease. The patient denied any previous knowledge of elevated LFTs, hepatitis, tattoos, IVDA, or needle piercings. Upon arrival, BP 164/75, P 80, R 18, T 96.9, O2 sat RA 97%. She received IV Toradol, Zofran, & IV NS in the ER. 03/16/17: WBC 7.6, H/H 12.9/39.2, MCV 90.1, PLT 269, glu 113, BUN/Cr 12/0.7, GFR > 60, Na 140, K 3.3, HCO3 26, AG 9, amylase 2134, lipase > 10K, Ca 9.0, albumin 3.9, globulin 3.1, *TG 44, TBil 0.8, alk phos 196, AST 314, ALT 173, *LDH 1557, troponin < 0.01, [EtOH] < 10, CRP 1.2. *CBC was not repeated on 03/17/17 (*need to watch for hemoconcentration). 03/17/17: BUN/Cr 9/0.7, GFR >60, Na 142. K 3.1, HCO3 27, AG 7, Mg 1.8, PO4 3.0, albumin 3.3, globulin 2.8, TChol 191, TG 43, HDL 46, LDL 137, TBil 0.6, DBil 0.3 , alk phos 166, AST 169, ALT 129, troponin < 0.01. 03/16/17; EKG- NSR @77, normal axis, LAE, RBBB, diffuse flipped T waves 03/17/17: EKG- NSR @ 60,normal axis, LAE, RBBB, diffuse flipped T waves, w/o signif change. 03/16/17: US ABDOMEN LIMITED- Exam limited by body habitus and bowel gas. Gallbladder is contracted and not seen well. No bile duct dilatation. CBD 4 mm. Normal liver. 03/16/17: CT ABD & PELVIS W/O IV CONTRAST (*per ER, limited utility in evaluating pancreas without IV contrast, but patient has iodine allergy)- 1. Edema of the pancreas consistent with a pancreatitis. No pseudocyst formation. No pancreatic duct dilatation. 2. Cholelithiasis. The gallbladder is contracted. Multiple small calcified gallstones within the gallbladder. No bile duct dilatation. 3. Incidental 2 cm right adrenal adenoma & right renal cyst. 4. Normal AP. 5. Clear lung bases without pleural effusion. 6. Levoscoliosis of L spine with fusion hardware. 7. ASHD of aortoiliac vessels. *The patient had 3 grave signs on admission by Jadiel criteria (elevated age, AST, & LDH). *The patient had 1 grave sign on admission by BiSAP criteria (elevated age). *The patient most likely has gallstone pancreatitis. She has no dilated ducts. She has no signs or symptoms of cholangitis. She remains afebrile, without leukocytosis. She was on several outpatient medications that have been implicated in pancreatitis, namely Amiodarone, HCTZ, and Atorvastatin, but none of these are new, and her LFTs have bumped up, along with known gallstones. The gallbladder was contracted, but there were no definite signs of cholecystitis. The CT obtained on admission by the ER has limited value without IV contrast ( iodine allergy), which makes visualization of the pancreas unsatisfactory. Additionally, it would be very unlikely for the patient to have pancreatic necrosis at this point. *Recent studies have shown that in cases of gallstone pancreatitis, morbidity and mortality rates are similar whether the cholecystectomy is done as an inpatient or an outpatient, providing that the surgery is done within 1 month of presentation. Additionally, a complicating factor is that the patient is on Eliquis for PAF, and she will need cardiac clearance prior to surgical intervention. Her CRP which was obtained fairly early on, & was minimally elevated. A high sensitivity CRP has no prognostic implications for pancreatitis, & is really more of a cardiac marker. There is no history of EtOH and her triglycerides were normal. *SUGGEST: Continue IVF with Ringer's Lactate (currently down to 100 cc/hr). *Advise close follow-up of CBC and BUN, watching for hemoconcentration, which be a poor prognostic sign. *If Hgb and/or BUN rise, would increase IV fluids. Strict I/O' s. Replete K+. Serial LFTs. *Check coags preop. No NSAIDs. Analgesics as needed. Anti-emetics as needed. Continue Pepcid (history of GERD). *Would maintain NPO for now, pending results of MRCP & clinical course. *Advise MRCP in view of alk phos elevation, although no dilated ducts seen on sono/CT. *Advise cardiology input, both for preop clearance & for holding Eliquis. *Advise surgical consult. (If patient continues to improve & MRCP stable, ? outpatient lap CCKY, once off Eliquis). Follow-up of incidental right adrenal adenoma as per medical team. * As an aside, the patient should have a semi-elective outpatient colonoscopy post CCKY, as her previous colonoscopy in [place] was more than 10 years ago. The patient was given my office number. Further GI recommendations to follow, depending on clinical course. I spoke with the patient's RN, who will contact the medical house staff, regarding the above suggestions. Problem List: 1. Gallstone pancreatitis 2. Abdominal pain 3. Elevated LFTs 4. Nausea & vomiting Copies To: RESHMA PEREZ,LUZ ELENA Johnson; KATI PEREZ,ADALGISA; ARELI PEREZ,ALYCIA Cobos. Consult Acknowledgment - Thank you for your consult request.
--- NOTE | 2017-03-17 17:03 | NUR ---
ALERT AND ORIENTED X 3. ON ROOM AIR. DENIES SHORTNESS OF BREATH VITAL SIGNS STABLE. DENIES CHEST PAIN. + PULSES. DENIES NUMBNESS/TINGLING NO EDEMA NOTED. HYPOACTIVE BOWEL SOUNDS. STEADY GAIT. INDEP WITH CANE. NO DISCOMFORT/DISTRESS AT THIS TIME. WILL CONTINUE TO MONITOR
[2017-03-17 22:29] VITALS: BP 120/74; BP 140/76
--- NOTE | 2017-03-18 01:14 | NUR ---
THIS RN NOTED PATIENT WAS NOT ON ANY IV FLUIDS AT THIS TIME. PATIENT IS CURRENTLY NPO AND IS HERE FOR A DIAGNOSIS OR PANCREATITIS/GALLSTONES. BOTH MD ATTENDINGS NOTE AND GI CONSULT NOTES RECOMMENDED THAT PAIENT BE CONTINUED ON IV FLUIDS. THIS RN NOTIFIED MD MUÑOZ OF THE LACK OF IV FLUIDS RUNNING AT THIS TIME. STATED HE WOULD LOOK INTO IT. WILL CONTINUE TO MONITOR.
[2017-03-18 06:46] VITALS: BP 110/64
--- NOTE | 2017-03-18 07:23 | PN- Housestaff ---
Subjective Follow-up For: Pancreatitis Subjective: Patient reports improvement in her abdominal pain. Denies any fever, chills, nausea, vomiting, diarrhea, chest pain or overnight events. Review of Systems Constitutional: Reports: no symptoms. EENTM: Reports: no symptoms. Cardiovascular: Reports: no symptoms. Respiratory: Reports: no symptoms. Gastrointestinal: Reports: see HPI. Genitourinary: Reports: no symptoms. Musculoskeletal: Reports: no symptoms. Skin: Reports: no symptoms. Neurological/Psychological: Reports: no symptoms. Hematologic/Endocrine: Reports: no symptoms. Immunologic/Allergic: Reports: no symptoms. Objective Last 24 Hrs of Vital Signs/I&O Vital Signs Date Time Temp Pulse Resp B/P B/P Pulse O2 O2 Flow FiO2 Mean Ox Delivery Rate 03/18 1201 68 130/80 03/18 1201 68 130/80 03/18 0646 98.2 63 20 110/64 95 Room Air 03/17 2229 97.6 63 18 140/76 95 03/17 1415 98.2 54 20 120/63 95 Room Air Intake & Output 03/18 1600 03/18 0800 03/18 0000 Intake Total 450 Output Total Balance 450 Intake, IV 450 Physical Exam General Appearance: Alert, Oriented X3, Cooperative Skin: No Rashes, No Breakdown HEENT: Atraumatic, PERRLA, EOMI, Mucous Membr. moist/pink Lymphatic: Cervical nl Cardiovascular: Normal S1, Normal S2, No Murmurs Lungs: Clear to Auscultation, Normal Air Movement Abdomen: Normal Bowel Sounds, Soft, No Hepatospenomegaly, No Masses, mild tenderness in epigastrium. Assessment/Plan Assessment: pt is a 72 yo F presenting to the ED c/o abdominal pain. Her pmh is significant for HTN, HLD, Afib, scoloisis (surgically repaired), DVT after surgery for scoliosis. For the past 2 the pt has had mild abdominal discomfort, not described as painful, at around noon today, after consuming some food, there was a sudden onset of 10/10 sharp pain in the upper abdomen that radiated to the R upper abdomen, and to the back. #acute pancreatitis amylase 2134, lipase > 10,000 most likely 2/2 gallstone but no gallstones seen on CT(most likely passed on its own). Pt denies alcohol abuse. less likely ACS with no signs of ischemia on ekg and normal troponins. -S/P MRCP, Awaiting results. -Patient started on clear liquid diet and on IV fluids. -Pain management with morphine. -Repeat EKG normal and serial troponins were negative. -Cardiology consult (pre-op clearance + holding eliquis). -Surgical Consult (If patient continues to improve & MRCP stable, will most probably do outpatient laproscopic Cholecystectomy, once off Eliquis) #Incidental right adrenal adenoma #Transaminitis: We'll continue to monitor. #Hypokalemia: Repleted. #htn - c/w amlodipine #history of afib - c/w amiodarone, eliquis, magnesium supllement -DVT prophylaxis: on eliquis -Patient is full code Problem List: 1. Pancreatitis 2. Paroxysmal atrial fibrillation 3. HTN (hypertension) 4. HLD (hyperlipidemia) Pain Ratin Pain Location: Epigastrium Pain Goal: Remain pain free Pain Plan: Pain Pathway Tomorrow's Labs & Rationales: CBC,BEP(Post-procedure)
--- NOTE | 2017-03-18 07:28 | PN- Gastroenterology ---
Assessment/Plan Assessment/Recommendations: 72 y/o -[place] female, PAF, HTN, HLD, asthma, remote postop DVT 2010 at the time of spinal surgery, known gallstones, previously in [facility] 2014 for biliary colic, on outpatient Amiodarone, Amlodipine, Atorvastatin, Eliquis, & HCTZ (without any new medications or NSAIDs), who presented to the [place] ER 03/16/17 at 7:32 p.m., complaining of sharp, mid-epigastric pain radiating to the RUQ & back, associated with nausea and vomiting x 1, with contents showing partially digested food, no blood or bile from above, nor any melena. The pain started the a.m. 03/16/17, and persisted for hours. She ate salami for lunch, followed by worsening pain "10 out of 10," and she presented to the ER later that evening. She has had vague bloating & fatigue, otherwise, no fevers, chills, weight loss, GERD (stable on Pepcid), odynophagia, dysphagia, early satiety, diartrhea, obstipation, tenesmus, or BRBPR. She noted mild constipation for 2 weeks [employer]AREER [employer]ELOP[employer]OC[employer]. She reportedly had an EGD/colonoscopy more than 10 years ago in [facility], both reportedly "normal." She denied any history of PUD, jaundice, dark urine, light stool, or pruritus. There was no chest pain, shortness of breath, or diaphoresis. There was no positional component. There is no history of EtOH. Ex-5 pk yr cigarette smoker, D/C 2005. There is no family history of any GI malignancy, GI disease, inherited pancreatitis, sickle cell, or inherited liver disease. The patient denied any previous knowledge of elevated LFTs, hepatitis, tattoos, IVDA, or needle piercings. Upon arrival, BP 164/75, P 80, R 18, T 96.9, O2 sat RA 97%. She received IV Toradol, Zofran, & IV NS in the ER. 03/16/17: WBC 7.6, H/H 12.9/39.2, MCV 90.1, PLT 269, glu 113, BUN/Cr 12/0.7, GFR > 60, Na 140, K 3.3, HCO3 26, AG 9, amylase 2134, lipase > 10K, Ca 9.0, albumin 3.9, globulin 3.1, *TG 44, TBil 0.8, alk phos 196, AST 314, ALT 173, *LDH 1557, troponin < 0.01, [EtOH] < 10, CRP 1.2. *CBC was not repeated on 03/17/17 (*need to watch for hemoconcentration). 03/17/17: BUN/Cr 9/0.7, GFR >60, Na 142. K 3.1, HCO3 27, AG 7, Mg 1.8, PO4 3.0, albumin 3.3, globulin 2.8, TChol 191, TG 43, HDL 46, LDL 137, TBil 0.6, DBil 0.3 , alk phos 166, AST 169, ALT 129, troponin < 0.01. 03/16/17; EKG- NSR @77, normal axis, LAE, RBBB, diffuse flipped T waves 03/17/17: EKG- NSR @ 60,normal axis, LAE, RBBB, diffuse flipped T waves, w/o signif change. 03/16/17: US ABDOMEN LIMITED- Exam limited by body habitus and bowel gas. Gallbladder is contracted and not seen well. No bile duct dilatation. CBD 4 mm. Normal liver. 03/16/17: CT ABD & PELVIS W/O IV CONTRAST (*per ER, limited utility in evaluating pancreas without IV contrast, but patient has iodine allergy)- 1. Edema of the pancreas consistent with a pancreatitis. No pseudocyst formation. No pancreatic duct dilatation. 2. Cholelithiasis. The gallbladder is contracted. Multiple small calcified gallstones within the gallbladder. No bile duct dilatation. 3. Incidental 2 cm right adrenal adenoma & right renal cyst. 4. Normal AP. 5. Clear lung bases without pleural effusion. 6. Levoscoliosis of L spine with fusion hardware. 7. ASHD of aortoiliac vessels. *The patient had 3 grave signs on admission by Jadiel criteria (elevated age, AST, & LDH). *The patient had 1 grave sign on admission by BiSAP criteria (elevated age). *The patient most likely has gallstone pancreatitis. She has no dilated ducts. She has no signs or symptoms of cholangitis. She remains afebrile, without leukocytosis. She was on several outpatient medications that have been implicated in pancreatitis, namely Amiodarone, HCTZ, and Atorvastatin, but none of these are new, and her LFTs have bumped up, along with known gallstones. The gallbladder was contracted, but there were no definite signs of cholecystitis. The CT obtained on admission by the ER has limited value without IV contrast ( iodine allergy), which makes visualization of the pancreas unsatisfactory. Additionally, it would be very unlikely for the patient to have pancreatic necrosis at this point. *Recent studies have shown that in cases of gallstone pancreatitis, morbidity and mortality rates are similar whether the cholecystectomy is done as an inpatient or an outpatient, providing that the surgery is done within 1 month of presentation. Additionally, a complicating factor is that the patient is on Eliquis for PAF, and she will need cardiac clearance prior to surgical intervention. Her CRP which was obtained fairly early on, & was minimally elevated. A high sensitivity CRP has no prognostic implications for pancreatitis, & is really more of a cardiac marker. There is no history of EtOH and her triglycerides were normal. *As of 03/18/17, the patient remained hemodynamically stable and afebrile. *She remained on Eliquis. *Neither surgery nor cardiology consults have been obtained , as of yet. *I do not believe MRCP has been ordered, as suggested. The patient 's abdominal pain is improved, down to "2 out of 10". She remained NPO. She denied any nausea, vomiting, or jaundice. There was no chest pain or shortness of breath. Still awaiting repeat CBC to rule out hemoconcentration. *SUGGEST: *Please read GI consult suggestions: Continue IVF with Ringer's Lactate (currently down to 100 cc/hr). *Advise close follow-up of CBC and BUN, watching for hemoconcentration, which be a poor prognostic sign. *If Hgb and/or BUN rise, would increase IV fluids. Strict I/O' s. Replete K+. Serial LFTs. *Check coags preop. No NSAIDs. Analgesics as needed. Anti-emetics as needed. Continue Pepcid (history of GERD). DVT prophylaxis ( still on Eliquis). Mobilize patient as tolerated.*Would maintain NPO for now, pending results of MRCP & clinical course. Advise MRCP in view of alk phos elevation, although no dilated ducts seen on sono/CT. *Advise cardiology input, both for preop clearance & for holding Eliquis. *Advise surgical consult. (If patient continues to improve & MRCP stable, ? outpatient lap CCKY, once off Eliquis). Follow-up of incidental right adrenal adenoma as per medical team. * As an aside, the patient should have a semi-elective outpatient colonoscopy post CCKY, as her previous colonoscopy in [place] was more than 10 years ago. I again spoke with the patient's RN, who will contact the medical house staff, regarding the above suggestions. *Further inpatient GI follow up as needed. The patient was given my office number. I will be away until 03/23/17. Please contact my partners, if further GI assistance is needed. The case was discussed with Dr. Arzate this morning. Problem List: 1. Gallstone pancreatitis 2. Abdominal pain 3. Elevated LFTs 4. Nausea & vomiting Subjective Subjective: *As of 03/18/17, the patient remained hemodynamically stable and afebrile. *She remained on Eliquis. *Neither surgery nor cardiology consults have been obtained , as of yet. *I do not believe MRCP has been ordered, as suggested. The patient 's abdominal pain is improved, down to "2 out of 10". She remained NPO. She denied any nausea, vomiting, or jaundice. There was no chest pain or shortness of breath. Still awaiting repeat CBC to rule out hemoconcentration. Review of Systems: Full 14 point review of systems otherwise noncontributory, and as above. Review of Systems Constitutional: Reports: malaise- improved. Denies: chills, diaphoresis, fever, weakness, unexplained weight loss. EENTM: Denies: blurred vision, double vision, visual changes, eye pain, eye drainage, eye tearing, icterus, ear discharge, ear pain, ear redness, hearing changes, nasal congestion, epistaxis, nasal pain, throat pain, throat swelling, mouth pain, tooth pain. Cardiovascular: Denies: chest pain, edema, orthopena, palpitations, peripheral edema, syncope. Respiratory: Denies: cough, hemoptysis, orthopnea, short of breath, sputum production, stridor, wheezing. GI: Reports: abdominal pain, bloating, nausea, vomiting- *all improved. Denies: constipation, diarrhea, distention, bowel incontinence, melena, bloody stool, changes in stool, steatorrhea. Genitourinary: Denies: discharge, dysuria, frequency, hematuria, hesitation, nocturia, pain, urgency. Musculoskeletal: Reports: back pain (chronic). Denies: gout, joint pain, joint swelling, muscle pain, muscle stiffness, neck pain. Skin: Denies: cysts, change in skin color, change in hair/nails, dryness, erythema, jaundice, lesions, lymphangitis, lumps, moles, rash. Neurological/Psychological: Denies: anxiety, ataxia, cognitive dysfunction, confusion, depressed, dementia, emotional problems, headache, numbness, paresthesia, pre-existing deficit, petit mal seizures, tingling, tremors, tonic-clonic seizures, unable to move lower ext , unable to move upper ext, weakness. Hematologic/Endocrine: Denies: bruising, bleeding, polyuria, polydipsia. Immunologic/Allergic: Denies: splenectomy, HIV/AIDS, lymphadenopathy. All Other Systems: Reviewed and Negative Objective Vital Signs and I&Os Vital Signs Date Time Temp Pulse Resp B/P B/P Pulse O2 O2 Flow FiO2 Mean Ox Delivery Rate 03/18 0646 98.2 63 20 110/64 95 Room Air 03/17 2229 97.6 63 18 140/76 95 03/17 1415 98.2 54 20 120/63 95 Room Air 03/17 0908 70 120/70 03/17 0908 70 120/70 Intake & Output 03/18 1600 03/18 0400 03/17 1600 03/17 0400 03/16 1600 03/16 0400 Intake Total 450 2350 0 Output Total Balance 450 2350 0 Intake, IV 450 2200 Intake, Oral 150 0 Number 0 Bowel Movements Patient 175 lb Weight Weight Reported by Patient Measurement Method Physical Exam: Well-developed, well-nourished, pleasant female, in no apparent distress. Non-toxic appearing. Sclera anicteric. Conjunctiva pink. Oropharynx clear. No oral thrush. No aphthous ulcers. Mucus membranes less dry. There is no adenopathy, thyromegaly, or JVD. No peripheral stigmata of inflammatory bowel disease or chronic liver disease on exam. No spiders on the anterior chest wall. No CVA tenderness. Levoscoliosis L-spine. Lungs: clear to A&P. Heart exam: regular rate rhythm (currently in NSR), S1 and S2, without any significant murmur. Breast & pelvic exams: API. Abdominal exam: normal bowel sounds, soft belly, currently nontender, without guarding or rebound. No mass. No organomegaly. Negative Cook sign. Multiple scars. No fluid shift. No pulsatile mass. No epigastric bruit. Digital rectal exam: deferred by patient. Extremities: without C, C, or E. DJD. No palpable cords. No palmar erythema. No Dupuytren's contractures. Distal pulses 2+ bilaterally. DTRs 2+ bilaterally. Alert and oriented x 3. No tremor or asterixis. A detailed neurologic exam (post remote spinal surgery) was deferred. Current Medications: Current Medications Sig/Zoila Start time Last Medication Dose Route Stop Time Status Admin Amiodarone HCl 200 MG DAILY 03/17 1000 AC 03/17 PO 0908 Amlodipine Besylate 5 MG DAILY 03/17 1000 AC 03/17 PO 0908 Apixaban 5 MG BID 03/17 1000 AC 03/17 PO 2254 Famotidine 20 MG BID 03/17 0345 AC 03/17 IV 2254 Lactated Ringer's 1,000 ML Q10H 03/18 0130 AC 03/18 IV 03/18 1129 0132 Lactated Ringer's 1,000 ML Q10H 03/17 0130 DC 03/17 IV 03/17 2129 0700 Magnesium Oxide 400 MG DAILY 03/17 1000 AC 03/17 PO 0908 Morphine Sulfate 1 MG Q6P PRN 03/17 0130 AC IV Morphine Sulfate 2 MG Q4P PRN 03/17 0030 AC IV Promethazine HCl 12.5 MG Q6-PRN PRN 03/17 0130 AC IV 03/24 0129 Results Pertinent Lab Results: Laboratory Tests 03/17 03/17 03/17 0830 0445 0300 Chemistry Sodium (137 - 145 mmol/L) 142 Potassium (3.5 - 5.1 mmol/L) 3.1 L Chloride (98 - 107 mmol/L) 108 H Carbon Dioxide (22 - 30 mmol/L) 27 Anion Gap (5 - 16) 7 BUN (7 - 17 mg/dL) 9 Creatinine (0.5 - 1.0 mg/dL) 0.7 Estimated GFR (>60 ml/min) > 60 BUN/Creatinine Ratio (7 - 25 %) 12.9 Phosphorus (2.5 - 4.5 mg/dL) 3.0 Magnesium (1.6 - 2.3 mg/dL) 1.8 Total Bilirubin (0.2 - 1.3 mg/dL) 0.6 Direct Bilirubin (< 0.4 mg/dL) 0.3 AST (14 - 36 U/L) 169 H ALT (9 - 52 U/L) 129 H Alkaline Phosphatase (<127 U/L) 166 H Troponin I (< 0.11 ng/ml) < 0.01 < 0.01 Cancelled C-React Prot High Sens (1.0 - 3.0 mg/L) > 15.0 H Total Protein (6.3 - 8.2 g/dL) 6.1 L Albumin (3.5 - 5.0 g/dL) 3.3 L Triglycerides (<150 mg/dL) 43 Cholesterol (<200 MG/DL) 191 LDL Cholesterol, Calc (65 - 129 mg/dL) 137 H HDL Cholesterol (40 - 60 mg/dL) 46 Cholesterol/HDL Ratio (0.00 - 4.23 %) 4 03/16 2120 Chemistry Sodium (137 - 145 mmol/L) 140 Potassium (3.5 - 5.1 mmol/L) 3.3 L Chloride (98 - 107 mmol/L) 105 Carbon Dioxide (22 - 30 mmol/L) 26 Anion Gap (5 - 16) 9 BUN (7 - 17 mg/dL) 12 Creatinine (0.5 - 1.0 mg/dL) 0.7 Estimated GFR (>60 ml/min) > 60 BUN/Creatinine Ratio (7 - 25 %) 17.1 Glucose (65 - 99 mg/dL) 113 H Calcium (8.4 - 10.2 mg/dL) 9.0 Total Bilirubin (0.2 - 1.3 mg/dL) 0.8 AST (14 - 36 U/L) 314 H ALT (9 - 52 U/L) 173 H Alkaline Phosphatase (<127 U/L) 196 H Lactate Dehydrogenase (313 - 618 U/L) 1557 H Troponin I (< 0.11 ng/ml) < 0.01 C-Reactive Prot, Quant (<1.0 mg/dL) 1.2 H Total Protein (6.3 - 8.2 g/dL) 7.0 Albumin (3.5 - 5.0 g/dL) 3.9 Globulin (1.9 - 4.2 gm/dL) 3.1 Albumin/Globulin Ratio (1.1 - 2.2 %) 1.3 Triglycerides (<150 mg/dL) 44 Amylase (30 - 110 U/L) 2134 H Lipase (23 - 300 U/L) > 25439 H Hematology CBC w Diff NO MAN DIFF REQ WBC (4.8 - 10.8 /CUMM) 7.6 RBC (4.20 - 5.40 /CUMM) 4.34 Hgb (12.0 - 16.0 G/DL) 12.9 Hct (37 - 47 %) 39.2 MCV (81.0 - 99.0 FL) 90.1 MCH (27.0 - 31.0 PG) 29.6 RDW (11.5 - 14.5 %) 14.7 H Plt Count (130 - 400 /CUMM) 269 MPV (7.4 - 10.4 FL) 9.2 Gran % (42.2 - 75.2 %) 90.0 H Lymphocytes % (20.5 - 51.1 %) 8.5 L Monocytes % (1.7 - 9.3 %) 1.3 L Eosinophils % (0 - 5 %) 0.1 Basophils % (0.0 - 2.0 %) 0.1 Absolute Granulocytes (1.4 - 6.5 /CUMM) 6.8 H Absolute Lymphocytes (1.2 - 3.4 /CUMM) 0.6 L Absolute Monocytes (0.10 - 0.60 /CUMM) 0.1 L Absolute Eosinophils (0.0 - 0.7 /CUMM) 0 Absolute Basophils (0.0 - 0.2 /CUMM) 0 PUBS MCHC (33.0 - 37.0 G/DL) 32.9 L Toxicology Serum Alcohol (<10 MG/DL) < 10.0 Imaging/Other Studies: 03/16/17; EKG- NSR @77, normal axis, LAE, RBBB, diffuse flipped T waves 03/17/17: EKG- NSR @ 60,normal axis, LAE, RBBB, diffuse flipped T waves, w/o signif change. 03/16/17: US ABDOMEN LIMITED- Exam limited by body habitus and bowel gas. Gallbladder is contracted and not seen well. No bile duct dilatation. CBD 4 mm. Normal liver. 03/16/17: CT ABD & PELVIS W/O IV CONTRAST (*per ER, limited utility in evaluating pancreas without IV contrast, but patient has iodine allergy)- 1. Edema of the pancreas consistent with a pancreatitis. No pseudocyst formation. No pancreatic duct dilatation. 2. Cholelithiasis. The gallbladder is contracted. Multiple small calcified gallstones within the gallbladder. No bile duct dilatation. 3. Incidental 2 cm right adrenal adenoma & right renal cyst. 4. Normal AP. 5. Clear lung bases without pleural effusion. 6. Levoscoliosis of L spine with fusion hardware. 7. ASHD of aortoiliac vessels.
[2017-03-18 10:13] LABS: PT 13.5 SEC (9.4-12.5); PTT 40 SEC (25-37)
[2017-03-18 14:26] VITALS: BP 110/58
--- NOTE | 2017-03-18 14:45 | MRI REPORT ---
EXAMINATION: MR ABDOMEN WITHOUT CONTRAST/MRCP CLINICAL INFORMATION: Pancreatitis. COMPARISON: CT scan of the abdomen dated 03/16/2017. Ultrasound of the right upper quadrant dated 03/16/2017. TECHNIQUE: An MRI scan of the abdomen was performed using multiple imaging sequences and imaging planes. As per the MRCP protocol, heavily T2-weighted 3-D high-resolution MRCP sequences were obtained in the coronal plane along with thin and thick slab coronal images and coronal MIP reconstructions on the acquisition workstation under concurrent physician supervision. FINDINGS: Evaluation is mildly limited due to blooming artifact related to posterior spinal fusion rods. GALLBLADDER, BILIARY TREE: The gallbladder is contracted and shows multiple filling defects consistent with the calcification seen on prior CT scan. No gallbladder wall thickening or pericholecystic fluid is seen. The common bile duct is normal, measuring 0.4 cm in maximal diameter. No evidence of choledocholithiasis or obstructing stone or mass is seen. No intrahepatic ductal dilatation is seen. LIVER: Normal size and signal. No hepatic steatosis. No focal cystic or solid mass. No or extrahepatic ductal dilatation. PANCREAS: There is slight enlargement of the pancreatic head relative to the pancreatic body and tail, consistent with mild edema and acute pancreatitis. There is minimal peripancreatic edema seen in the anterior pararenal space. No defined peripancreatic fluid collections are noted. The pancreatic duct is upper limits of normal, measuring 0.3 cm in diameter. No side branch ectasia of the pancreatic duct is seen and no variant ductal anatomy is noted. SPLEEN: Normal size and appearance. ADRENAL GLANDS AND KIDNEYS: There is diffuse nodular hypertrophy of the right adrenal gland, similar to the previous CT scan with loss in signal seen on opposed phase sequences, most consistent with diffuse adrenal hyperplasia. Left adrenal gland is unremarkable. The kidneys bilaterally are symmetric in size and show no hydronephrosis. There is a 3.2 x 4.2 x 2.8 cm partially exophytic thin-walled cyst in the mid right kidney. Additional tiny 0.7 cm T2 bright cyst is seen in the anterior cortex of the mid left kidney. Kidneys are otherwise unremarkable. BOWEL LOOPS: Decompressed and unremarkable. LYMPHOVASCULAR STRUCTURES: Abdominal aorta normal in caliber. No periaortic collections. No significant abdominal adenopathy or free fluid. BONES: There is an S-shaped thoracolumbar scoliosis and evidence of prior thoracolumbar spine fusion. IMPRESSION: 1. Above findings are consistent with interstitial pancreatitis involving the pancreatic head with mild surrounding peripancreatic edema. No evidence of focal peripancreatic fluid collection or variant ductal anatomy. No evidence of obstructing stone or mass. 2. Gallbladder contracted with several gallstones seen in the lumen. No evidence of cholecystitis or biliary obstruction or choledocholithiasis. 3. Diffuse nodular hypertrophy of the right adrenal gland. 4. Bilateral renal cysts.
--- NOTE | 2017-03-18 15:55 | NUR ---
SPOKE WITH ALLERGIST/PEDIATRIC PULMONOLOGIST ANJALI AND RESIDENT HARPAL REGARDING PO ELIQUIS. PT DID NOT RECEIVE DUE TO POSSIBILITY OF OR PROCEDURE TODAY. PT HAD MRCP, PER MEDICAL TEAM HOLD ELIQUIS UNTIL MRCP READ. PT ADVANCED FROM NPO TO CLEARS. HAD SMALL LIQUID BM FOLLOWING CLEARS WITH MINOR INCREASE TO RLQ PAIN. DENIES NAUSEA. PT HAS LH #24 IV THAT INFILTRATED AT 1200. UNABLE TO GET IV ACCESS UNTIL 1500. ALLERGIST/PEDIATRIC PULMONOLOGIST AND RESIDENT AWARE. IV FLUIDS RESTARTED.
--- NOTE | 2017-03-18 17:11 | PN- Att Addend ---
Attending MD Review Statement Attending Statement Attending MD Statement: examined this patient, discuss w/resident/PA/SIGHT EFFECTS SPECIALIST, agreed w/resident/PA/SIGHT EFFECTS SPECIALIST, reviewed EMR data (avail), discussed w/nursing Attending Assessment/Plan: Laboratory Tests 03/18/17 0936: Anion Gap 12, Estimated GFR > 60, BUN/Creatinine Ratio 17.1, Total Bilirubin 0.5 , Direct Bilirubin 0.2, AST 70 H, ALT 95 H, Alkaline Phosphatase 165 H, Total Protein 6.7, Albumin 3.8, PT 13.5 H, INR 1.29 H, APTT 40 H Vital Signs Date Time Temp Pulse Resp B/P B/P Pulse O2 O2 Flow FiO2 Mean Ox Delivery Rate 03/18 1426 97.9 69 18 110/58 95 Room Air 03/18 1201 68 130/80 03/18 1201 68 130/80 03/18 0646 98.2 63 20 110/64 95 Room Air 03/17 2229 97.6 63 18 140/76 95 pt seen and examined at bedside. MRI abdomen reviewed- no obstructing stone noted. Will get general surgery consult in am to evaluate for lap lisa. Surgery most likely will be scheduled as an outpatient. d/w pt the care plan.
--- NOTE | 2017-03-18 17:30 | Patient Discharge Instructions ---
Discharge Instructions General Discharge Information You were seen/treated for: Pancreatitis Watch for these problems: Worsening abdominal pain Special Instructions: Please call you surgeon Dr Kapadia next week to schedule a surgery date. He will let you know when to stop the blood thinner you prior to surgery. Please continue taking all your medications until then. Please follow-up with your PCP within a week after discharge. Please follow-up with your reconciliation machine operator within a week after discharge. . Diet Continue normal diet: No Recommended Diet: Low Fat Activity Full Activity/No Limits: Yes Acute Coronary Syndrome Inclusion Criteria At DC or during hospital stay patient has or had the following: ACS DIAGNOSIS No Discharge Core Measures Meds if any: Prescribed or Continued at Discharge Meds if any: NOT Prescribed or Continued at Discharge Congestive Heart Failure Inclusion Criteria At DC or during hospital stay patient has or had the following: CHF DIAGNOSIS No Discharge Core Measures Meds if any: Prescribed or Continued at Discharge Meds if any: NOT Prescribed or Continued at Discharge Cerebrovascular accident Inclusion Criteria At DC or during hospital stay patient has or had the following: CVA/TIA Diagnosis No Discharge Core Measures Meds if any: Prescribed or Continued at Discharge Meds if any: NOT Prescribed or Continued at Discharge Venous thromboembolism Inclusion Criteria VTE Diagnosis No VTE Type NONE VTE Confirmed by (Test) NONE Discharge Core Measures - Per Current guidelines, there needs to be overlap - treatment for the first 5 days of Warfarin therapy. - If discharged on Warfarin prior to 5 days of - overlap therapy, the patient will need to be - assessed for post discharge needs including - *Post discharge parental anticoagulation - *Warfarin and/or parental anticoagulation education - *Follow up date to check INR post discharge At least 5 days overlap therapy as Inpatient No Meds if any: Prescribed or Continued at Discharge Note: Overlap Therapy is Warfarin and Anticoagulant Meds if any: NOT Prescribed or Continued at Discharge
--- NOTE | 2017-03-18 17:39 | Cons- Cardiology ---
General Information and HPI Consulting Request Date of Consult: 03/18/17 Requested By: ADALGISA PARIKH MD Reason for Consult: Paroxysmal atrial fibrillation in a 72-year-old female for possible cholecystectomy. Source of Information: patient, old records Exam Limitations: no limitations History of Present Illness: Vesta Lozano is a 72-year-old female who has been generally healthy. She has mild dyslipidemia on simvastatin but she was not a known hypertensive and she is a nonsmoker. She presented to [facility] on complaining of tachycardia. She had an initial EKG showing sinus tachycardia with a brief run of atrial fibrillation followed by another EKG showing haley atrial fibrillation with a rate of 130. She has an underlying right bundle branch block which is old. Eventually she converted back to sinus rhythm and was watched overnight and discharged from the hospital. She had a low magnesium and was put on magnesium on discharge. Subsequently almost exactly 2 weeks later she once again presented with palpitations and tachycardia and was found to be in atrial flutter on EKG with a rate of 145. Subsequently she converted to sinus rhythm. She was again watched for 24 hours and this time because of the recurrent atrial arrhythmias we put her on amiodarone loading dose and also Eliquis for anticoagulation. She had an echocardiogram on 09/24/16 and showed normal left ventricular systolic function, normal left atrial size, mild thickening of the mitral and aortic valves, but no malfunction of the valves. The right ventricular systolic pressure was mildly elevated at 40 mmHg. Vesta has remained in sinus rhythm on followup office visits. At the time of her last visit she was somewhat hypertensive, and I recommended that she check her blood pressures at home. I also sent her for a followup Holter to see if she had any atrial fibrillation or other arrhythmias. Her blood pressures at home have been very good in the 115's to 130's over 60's and occasionally they are a little bit lower. She has been taking it regularly. She has no chest pain. She has occasional palpitations. She has no shortness of breath. Her Holter showed an average heart rate of 69 in sinus rhythm. There were no PVCs and there were 40 supraventricular premature beats with just a single 3-beat run. She remains on amiodarone 200 mg daily, amlodipine 10 mg daily, atorvastatin 10 mg daily, Eliquis 5 mg twice a day, and hydrochlorothiazide 25 mg daily. The patient presented 2 days ago with the sudden onset of abdominal pain, nausea and vomiting. She is found to have pancreatitis, likely gallstone pancreatitis. She is slowly improving from this. Her MRCP shows a contracted gallbladder with stones and cholecystectomy is being contemplated. She denies any cardiac complaints including chest pain, shortness of breath, palpitations, dizziness, syncope, edema since I saw her last. Allergies/Medications Allergies: Coded Allergies: iodine (Intermediate, SWELLING 09/22/16) shellfish derived (Intermediate, SWELLING 09/22/16) Home Med List: Amiodarone HCl 200 MG TABLET 1 TAB PO DAILY aflutter Start taking 200 mg PO daily from 23 October 2016. Amlodipine Besylate (Norvasc) 10 MG TABLET 1 TAB PO DAILY BLOOD PRESSURE ( Reported) Apixaban (Eliquis) 5 MG TABLET 5 MG PO BID afib Atorvastatin Calcium (Lipitor) 10 MG TABLET 1 TAB PO DAILY CHOLESTROL Magnesium Oxide 400 MG TABLET 1 TAB PO DAILY heart lg Current Medications: Current Medications Sig/Zoila Start time Last Medication Dose Route Stop Time Status Admin Amiodarone HCl 200 MG DAILY 03/17 1000 AC 03/18 PO 1201 Amlodipine Besylate 5 MG DAILY 03/17 1000 AC 03/18 PO 1201 Apixaban 5 MG BID 03/17 1000 DC 03/17 PO 2254 Famotidine 20 MG BID 03/17 0345 AC 03/18 IV 1201 Lactated Ringer's 1,000 ML Q10H 03/18 1230 AC 03/18 IV 03/18 2229 1641 Lactated Ringer's 1,000 ML Q10H 03/18 0130 DC 03/18 IV 03/18 1129 0132 Lactated Ringer's 1,000 ML Q10H 03/17 0130 DC 03/17 IV 03/17 2129 0700 Magnesium Oxide 400 MG DAILY 03/17 1000 AC 03/18 PO 1201 Morphine Sulfate 1 MG Q6P PRN 03/17 0130 AC IV Morphine Sulfate 2 MG Q4P PRN 03/17 0030 AC IV Promethazine HCl 12.5 MG Q6-PRN PRN 03/17 0130 AC IV 03/24 0129 Review of Systems Review of Systems: She has no complaints in the review of systems Past History Travel History Traveled to [place] past 21 day No Medical History Blood Transfusion Hx: No Neurological: NONE EENT: NONE Cardiovascular: AFIB (PAF), hypertension, hyperlipidemia, CHEST PAIN Respiratory: asthma Gastrointestinal: constipation, GERD, pancreatitis Hepatic: cholelithiasis Renal: NONE Musculoskeletal: fracture, scoliosis ARTHRITIS Psychiatric: NONE Endocrine: NONE Blood Disorders: NONE (LLE 2010- postop spine surgery), DVT Cancer(s): NONE 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 , Age 83; Cause: ASHD (arteriosclerotic heart disease). FH: heart disease FATHER (HTN). , Age 87; Cause: ASHD (arteriosclerotic heart disease). FH: heart disease Relation not specified for: Patient's father is Psychosocial History Where Do You Live? Home Who Do You Live With? spouse (son), child Services at Home: None Primary Language: Honduran Smoking Status: Former Smoker ETOH Use: denies use Illicit Drug Use: denies illicit drug use Living Will? no Power of Textile Engraver/HCP? no Other Social History: . 2 sons & 1 daughter- alive and well. Lives with son. Ex-5 pk yr cigarette smoker, stopped 2005. No EtOH. No drugs. No IVDA. 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 Ambulation: cane IADLs Independent: shopping, housework, finances, food prep, telephone, transportation , medication admin. Employment History Employment: Retired Profession/Employer worked for [employer] ECHO Results (as available) Date of last Echo 09/24/16 EF% 60 Exam & Diagnostic Data Vital Signs and I&O Vital Signs Date Time Temp Pulse Resp B/P B/P Pulse O2 O2 Flow FiO2 Mean Ox Delivery Rate 03/18 1426 97.9 69 18 110/58 95 Room Air 03/18 1201 68 130/80 03/18 1201 68 130/80 03/18 0646 98.2 63 20 110/64 95 Room Air 03/17 2229 97.6 63 18 140/76 95 Intake & Output 03/18 1600 03/18 0800 03/18 0000 03/17 1600 03/17 0803/17 0000 Intake Total 640 007 312 9949 0 Output Total Balance 640 318 427 2390 0 Intake, IV 400 250 408 1772 Intake, Oral 240 150 0 Number 0 0 Bowel Movements Patient 175 lb 175 lb Weight Weight Reported by Patient Estimated Measurement Method Physical Exam: She is a pleasant late middle-aged female in no acute distress just complaining of mild abdominal tenderness. HEENT exam normal Neck veins not distended Carotids normal Chest is clear Heart reveals regular rhythm with grade 2/6 systolic murmur at the base Abdomen reveals mild tenderness to palpation especially on the right upper quadrant Extremities no edema Labs/Dave Results: Laboratory Tests 03/18 03/17 03/17 03/17 0936 0830 0445 0300 Chemistry Sodium (137 - 145 mmol/L) 141 142 Potassium (3.5 - 5.1 mmol/L) 4.3 3.1 L Chloride (98 - 107 mmol/L) 108 H 108 H Carbon Dioxide (22 - 30 mmol/L) 21 L 27 Anion Gap (5 - 16) 12 7 BUN (7 - 17 mg/dL) 12 9 Creatinine (0.5 - 1.0 mg/dL) 0.7 0.7 Estimated GFR (>60 ml/min) > 60 > 60 BUN/Creatinine Ratio (7 - 25 %) 17.1 12.9 Phosphorus (2.5 - 4.5 mg/dL) 3.0 Magnesium (1.6 - 2.3 mg/dL) 1.8 Total Bilirubin (0.2 - 1.3 mg/dL) 0.5 0.6 Direct Bilirubin (< 0.4 mg/dL) 0.2 0.3 AST (14 - 36 U/L) 70 H 169 H ALT (9 - 52 U/L) 95 H 129 H Alkaline Phosphatase (<127 U/L) 165 H 166 H Troponin I (< 0.11 ng/ml) < 0.01 < 0.01 Cancelled C-React Prot High Sens (1.0 - 3.0 mg/L) > 15.0 H Total Protein (6.3 - 8.2 g/dL) 6.7 6.1 L Albumin (3.5 - 5.0 g/dL) 3.8 3.3 L Triglycerides (<150 mg/dL) 43 Cholesterol (<200 MG/DL) 191 LDL Cholesterol, Calc (65 - 129 mg/dL) 137 H HDL Cholesterol (40 - 60 mg/dL) 46 Cholesterol/HDL Ratio (0.00 - 4.23 %) 4 Coagulation PT (9.4 - 12.5 SEC) 13.5 H INR (0.90 - 1.19) 1.29 H APTT (25 - 37 SEC) 40 H 03/16 2120 Chemistry Sodium (137 - 145 mmol/L) 140 Potassium (3.5 - 5.1 mmol/L) 3.3 L Chloride (98 - 107 mmol/L) 105 Carbon Dioxide (22 - 30 mmol/L) 26 Anion Gap (5 - 16) 9 BUN (7 - 17 mg/dL) 12 Creatinine (0.5 - 1.0 mg/dL) 0.7 Estimated GFR (>60 ml/min) > 60 BUN/Creatinine Ratio (7 - 25 %) 17.1 Glucose (65 - 99 mg/dL) 113 H Calcium (8.4 - 10.2 mg/dL) 9.0 Total Bilirubin (0.2 - 1.3 mg/dL) 0.8 AST (14 - 36 U/L) 314 H ALT (9 - 52 U/L) 173 H Alkaline Phosphatase (<127 U/L) 196 H Lactate Dehydrogenase (313 - 618 U/L) 1557 H Troponin I (< 0.11 ng/ml) < 0.01 C-Reactive Prot, Quant (<1.0 mg/dL) 1.2 H Total Protein (6.3 - 8.2 g/dL) 7.0 Albumin (3.5 - 5.0 g/dL) 3.9 Globulin (1.9 - 4.2 gm/dL) 3.1 Albumin/Globulin Ratio (1.1 - 2.2 %) 1.3 Triglycerides (<150 mg/dL) 44 Amylase (30 - 110 U/L) 2134 H Lipase (23 - 300 U/L) > 46089 H Hematology CBC w Diff NO MAN DIFF REQ WBC (4.8 - 10.8 /CUMM) 7.6 RBC (4.20 - 5.40 /CUMM) 4.34 Hgb (12.0 - 16.0 G/DL) 12.9 Hct (37 - 47 %) 39.2 MCV (81.0 - 99.0 FL) 90.1 MCH (27.0 - 31.0 PG) 29.6 RDW (11.5 - 14.5 %) 14.7 H Plt Count (130 - 400 /CUMM) 269 MPV (7.4 - 10.4 FL) 9.2 Gran % (42.2 - 75.2 %) 90.0 H Lymphocytes % (20.5 - 51.1 %) 8.5 L Monocytes % (1.7 - 9.3 %) 1.3 L Eosinophils % (0 - 5 %) 0.1 Basophils % (0.0 - 2.0 %) 0.1 Absolute Granulocytes (1.4 - 6.5 /CUMM) 6.8 H Absolute Lymphocytes (1.2 - 3.4 /CUMM) 0.6 L Absolute Monocytes (0.10 - 0.60 /CUMM) 0.1 L Absolute Eosinophils (0.0 - 0.7 /CUMM) 0 Absolute Basophils (0.0 - 0.2 /CUMM) 0 PUBS MCHC (33.0 - 37.0 G/DL) 32.9 L Toxicology Serum Alcohol (<10 MG/DL) < 10.0 Diagnostic Data EKG Results EKG on March 16 shows sinus rhythm at a rate of 77, probable left atrial abnormality, right bundle branch block, diffuse T-wave inversions laterally. Repeat EKG on March 17 shows sinus rhythm at 60 and is otherwise unchanged. CXR Results Not done Assessment/Plan Assessment/Plan Ms. Lozano is a 72-year-old female who has had 2 episodes of atrial fibrillation. She is now maintained on amiodarone and Eliquis but has been in sinus rhythm for at least a few months, including on her last office visit, which was fairly recent. Her EKG shows sinus rhythm with right bundle-branch block, which is her baseline pattern. Based on this her anticoagulation can be safely interrupted without bridging on heparin at this time. Concerning her suitability for surgery I think she is an acceptable candidate at this time, with increased risk due to age and underlying heart disease. A postoperative electrocardiogram should be done. I would keep her off anticoagulation for at least a couple of days postoperatively and then decide whether to restart or just to monitor for recurrence of atrial fibrillation clinically. I would keep her off her Lipitor until her liver function tests are back to normal. Consult Acknowledgment - Thank you for your consult request.
[2017-03-18 22:19] VITALS: BP 130/70
[2017-03-19 06:46] VITALS: BP 130/74
--- NOTE | 2017-03-19 07:24 | PN- Housestaff ---
See Addendum Subjective Follow-up For: Pancreatitis Subjective: Patient reports improvement in her abdominal pain. Reports some diarrhea after she eats the food. Denies any fever, chills, nausea, vomiting, shortness of breath or overnight events. Review of Systems Constitutional: Reports: no symptoms. EENTM: Reports: no symptoms. Cardiovascular: Reports: no symptoms. Respiratory: Reports: no symptoms. Gastrointestinal: Reports: see HPI. Genitourinary: Reports: no symptoms. Musculoskeletal: Reports: no symptoms. Skin: Reports: no symptoms. Neurological/Psychological: Reports: no symptoms. Hematologic/Endocrine: Reports: no symptoms. Immunologic/Allergic: Reports: no symptoms. Objective Last 24 Hrs of Vital Signs/I&O Vital Signs Date Time Temp Pulse Resp B/P B/P Pulse O2 O2 Flow FiO2 Mean Ox Delivery Rate 03/19 1407 98.0 55 18 100/60 96 Room Air 03/19 0947 60 110/72 03/19 0947 60 110/72 03/19 0646 98.4 56 20 130/74 94 Room Air 03/18 2219 98.1 53 20 130/70 95 Room Air 03/18 1426 97.9 69 18 110/58 95 Room Air Intake & Output 03/19 1600 03/19 0800 03/19 0000 Intake Total 840 1180 Output Total Balance 840 1180 Intake, IV 600 700 Intake, Oral 240 480 Number 3 Bowel Movements Physical Exam General Appearance: Alert, Oriented X3, Cooperative Skin: No Rashes, No Breakdown HEENT: Atraumatic, PERRLA, EOMI, Mucous Membr. moist/pink Neck: Supple, No JVD, No thryomegaly Lymphatic: Cervical nl Cardiovascular: Regular Rate, Normal S1, Normal S2, No Murmurs Lungs: Clear to Auscultation, Normal Air Movement Abdomen: Normal Bowel Sounds, Soft, No Hepatospenomegaly, No Masses, mild tenderness in the epigastrium. Assessment/Plan Assessment: pt is a 72 yo F presenting to the ED c/o abdominal pain. Her pmh is significant for HTN, HLD, Afib, scoloisis (surgically repaired), DVT after surgery for scoliosis. For the past 2 the pt has had mild abdominal discomfort, not described as painful, at around noon today, after consuming some food, there was a sudden onset of 10/10 sharp pain in the upper abdomen that radiated to the R upper abdomen, and to the back. #acute pancreatitis amylase 2134, lipase > 10,000 most likely 2/2 gallstone but no gallstones seen on CT(most likely passed on its own). Pt denies alcohol abuse. less likely ACS with no signs of ischemia on ekg and normal troponins. -S/P MRCP, Finding: Gallbladder contracted with several gallstones seen in the lumen. No evidence of cholecystitis or biliary obstruction or choledocholithiasis. -Patient started on Low fat diet. Stopped IV fluids. -Pain management with morphine. -Repeat EKG normal and serial troponins were negative. -Cardiology consult: Appreciate recommendations. -Surgical Consult: Patient is still off eliquis awaiting surgical recommendations regarding cholecystectomy inpatient versus outpatient. #Incidental right adrenal adenoma #Transaminitis: We'll continue to monitor. #Hypokalemia: Repleted. #htn - c/w amlodipine #history of afib - c/w amiodarone, eliquis, magnesium supllement -DVT prophylaxis: on eliquis -Patient is full code Problem List: 1. Gallstone pancreatitis 2. Paroxysmal atrial fibrillation 3. HTN (hypertension) 4. HLD (hyperlipidemia) Pain Ratin Pain Location: Epigastrium Pain Goal: Remain pain free Pain Plan: None Tomorrow's Labs & Rationales: None
[2017-03-19 08:40] LABS: ABSOLUTE BASOPHIL COUNT 0 /CUMM (0.0-0.2); ABSOLUTE EOSINOPHIL COUNT 0.1 /CUMM (0.0-0.7); ABSOLUTE GRANULOCYTE CT 2.4 /CUMM (1.4-6.5); ABSOLUTE LYMPH COUNT 1.2 /CUMM (1.2-3.4); ABSOLUTE MONOCYTE COUNT 0.2 /CUMM (0.10-0.60); BASOPHIL % 0.5 % (0.0-2.0); EOSINOPHIL % 2.8 % (0-5); GRANULOCYTE % 60.7 % (42.2-75.2); HEMATOCRIT 39.2 % (37-47); MEAN CORPUSCULAR HGB 29.8 PG (27.0-31.0); MEAN CORPUSCULAR HGB CONC 32.9 G/DL (33.0-37.0); MEAN CORPUSCULAR VOLUME 90.5 FL (81.0-99.0); MEAN PLATELET VOLUME 9.5 FL (7.4-10.4); PLATELET COUNT 232 /CUMM (130-400); RBC DISTRIBUTION WIDTH 14.6 % (11.5-14.5); RED BLOOD CELL CT 4.33 /CUMM (4.20-5.40)
--- NOTE | 2017-03-19 12:00 | NUR ---
SPOKE WITH FUR TRAPPER ANJALI REGARDING LOSS OF IV ACCESS. PER FUR TRAPPER, DOES NOT NEED NEW IV LINE. PT HAD BEEN STUCK YESTERDAY BY IV NURSE, DIFFICULT STICK.
[2017-03-19 14:07] VITALS: BP 100/60
--- NOTE | 2017-03-19 17:32 | Cons- General Surgery ---
General Information and HPI Consulting Request Date of Consult: 03/19/17 Requested By: ADALGISA PARIKH MD Allergies/Medications Allergies: Coded Allergies: iodine (Intermediate, SWELLING 09/22/16) shellfish derived (Intermediate, SWELLING 09/22/16) Home Med List: Amiodarone HCl 200 MG TABLET 1 TAB PO DAILY aflutter Start taking 200 mg PO daily from 23 October 2016. Amlodipine Besylate (Norvasc) 10 MG TABLET 1 TAB PO DAILY BLOOD PRESSURE ( Reported) Apixaban (Eliquis) 5 MG TABLET 5 MG PO BID afib Atorvastatin Calcium (Lipitor) 10 MG TABLET 1 TAB PO DAILY CHOLESTROL Magnesium Oxide 400 MG TABLET 1 TAB PO DAILY heart lg Current Medications: I reviewed Current Medications Sig/Ziola Start time Last Medication Dose Route Stop Time Status Admin Amiodarone HCl 200 MG DAILY 03/17 1000 AC 03/19 PO 0947 Amlodipine Besylate 5 MG DAILY 03/17 1000 AC 03/19 PO 0947 Famotidine 20 MG BID 03/19 1000 AC 03/19 PO 0947 Famotidine 20 MG BID 03/17 0345 DC 03/18 IV 2151 Lactated Ringer's 1,000 ML Q10H 03/18 1230 DC 03/18 IV 03/18 2229 1641 Magnesium Oxide 400 MG DAILY 03/17 1000 AC 03/19 PO 0947 Morphine Sulfate 1 MG Q6P PRN 03/17 0130 AC IV Morphine Sulfate 2 MG Q4P PRN 03/17 0030 AC IV Promethazine HCl 12.5 MG Q6-PRN PRN 03/17 0130 AC IV 03/24 0129 Past History Medical History Blood Transfusion Hx: No Neurological: NONE EENT: NONE Cardiovascular: AFIB (PAF), hypertension, hyperlipidemia, CHEST PAIN Respiratory: asthma Gastrointestinal: constipation, GERD, pancreatitis Hepatic: cholelithiasis Renal: NONE Musculoskeletal: fracture, scoliosis ARTHRITIS Psychiatric: NONE Endocrine: NONE Blood Disorders: NONE (LLE 2010- postop spine surgery), DVT Cancer(s): NONE 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 , Age 83; Cause: ASHD (arteriosclerotic heart disease). FH: heart disease FATHER (HTN). , Age 87; Cause: ASHD (arteriosclerotic heart disease). FH: heart disease Relation not specified for: Patient's father is Psychosocial History Where Do You Live? Home Who Do You Live With? spouse (son), child Services at Home: None Primary Language: Luxembourger Smoking Status: Former Smoker ETOH Use: denies use Illicit Drug Use: denies illicit drug use Living Will? no Power of Building Supplies Salesperson Retail/HCP? no Other Social History: . 2 sons & 1 daughter- alive and well. Lives with son. Ex-5 pk yr cigarette smoker, stopped 2005. No EtOH. No drugs. No IVDA. 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 Ambulation: cane IADLs Independent: shopping, housework, finances, food prep, telephone, transportation , medication admin. Employment History Employment: Retired Profession/Employer: worked for [employer] Exam & Diagnostic Data Vital Signs and I&O I reviewed Vital Signs Date Time Temp Pulse Resp B/P B/P Pulse O2 O2 Flow FiO2 Mean Ox Delivery Rate 03/19 1407 98.0 55 18 100/60 96 Room Air 03/19 0947 60 110/72 03/19 0947 60 110/72 03/19 0646 98.4 56 20 130/74 94 Room Air 03/18 2219 98.1 53 20 130/70 95 Room Air I reviewed Intake & Output 03/19 1600 03/19 0800 03/19 0000 03/18 1600 03/18 0800 03/18 0000 Intake Total 012 924 2383 640 450 Output Total Balance 373 182 6911 640 450 Intake, Blood Product Intake, IV 0 600 700 400 450 Intake, Oral 480 240 480 240 Number 2 3 0 Bowel Movements Output, Urine Patient 175 lb Weight Last 24 Hours of Labs: I reviewed Laboratory Tests 03/19 03/19 0810 0808 Chemistry Sodium (137 - 145 mmol/L) 142 Potassium (3.5 - 5.1 mmol/L) 3.6 Chloride (98 - 107 mmol/L) 109 H Carbon Dioxide (22 - 30 mmol/L) 25 Anion Gap (5 - 16) 8 BUN (7 - 17 mg/dL) 5 L Creatinine (0.5 - 1.0 mg/dL) 0.6 Estimated GFR (>60 ml/min) > 60 BUN/Creatinine Ratio (7 - 25 %) 8.3 Total Bilirubin (0.2 - 1.3 mg/dL) 0.6 Direct Bilirubin (< 0.4 mg/dL) 0.3 AST (14 - 36 U/L) 51 H ALT (9 - 52 U/L) 75 H Alkaline Phosphatase (<127 U/L) 151 H Total Protein (6.3 - 8.2 g/dL) 6.6 Albumin (3.5 - 5.0 g/dL) 3.6 Lipase (23 - 300 U/L) 72 Hematology CBC w Diff NO MAN DIFF REQ WBC (4.8 - 10.8 /CUMM) 4.0 L RBC (4.20 - 5.40 /CUMM) 4.33 Hgb (12.0 - 16.0 G/DL) 12.9 Hct (37 - 47 %) 39.2 MCV (81.0 - 99.0 FL) 90.5 MCH (27.0 - 31.0 PG) 29.8 RDW (11.5 - 14.5 %) 14.6 H Plt Count (130 - 400 /CUMM) 232 MPV (7.4 - 10.4 FL) 9.5 Gran % (42.2 - 75.2 %) 60.7 Lymphocytes % (20.5 - 51.1 %) 29.9 Monocytes % (1.7 - 9.3 %) 6.1 Eosinophils % (0 - 5 %) 2.8 Basophils % (0.0 - 2.0 %) 0.5 Absolute Granulocytes (1.4 - 6.5 /CUMM) 2.4 Absolute Lymphocytes (1.2 - 3.4 /CUMM) 1.2 Absolute Monocytes (0.10 - 0.60 /CUMM) 0.2 Absolute Eosinophils (0.0 - 0.7 /CUMM) 0.1 Absolute Basophils (0.0 - 0.2 /CUMM) 0 PUBS MCHC (33.0 - 37.0 G/DL) 32.9 L Assessment/Plan Consult Acknowledgment - Thank you for your consult request.
== END 2017-03-19 18:39 | DRG 440 ==
LOC: ERH 19:32 → ERHI 23:27 → 2NA 23:27 → ENRESERV 23:45 → 2NA 03-17 01:13
PROVIDERS: Emergency Medicine; Internal Medicine; Student in an Organized Health Care Education/Training Program; ADMIT Internal Medicine
DX: K85.10 Biliary acute pancreatitis without necrosis or infection (principal); I48.0 Paroxysmal atrial fibrillation; I10 Essential (primary) hypertension; E78.5 Hyperlipidemia, unspecified; M41.9 Scoliosis, unspecified; Z86.718 Personal history of other venous thrombosis and embolism; Z79.01 Long term (current) use of anticoagulants; K21.9 Gastro-esophageal reflux disease without esophagitis; J45.909 Unspecified asthma, uncomplicated; K80.20 Calculus of gallbladder without cholecystitis without obstruction; E87.6 Hypokalemia; D35.01 Benign neoplasm of right adrenal gland
CPT/HCPCS: 2NAP; 74181; ERO; 36415; 74176; 82436; 93005; 93010; 96361; 96374; 96375; G0480; J1885; J2405; J2550; J7120

== ENCOUNTER 2018-02-27 22:52 | Emergency (ER) | payer OTHER, MEDICARE ==
[~2018-02-27] VITALS: Ht 157.5 cm; Wt 73.5 kg
[~2018-02-27 22:52] MED LIST changes: +ZYRTEC10 M3 PO
--- NOTE | 2018-02-27 23:45 | RADIOLOGY REPORT ---
EXAMINATION: XR PORTABLE CHEST CLINICAL INFORMATION: Chest pain COMPARISON: 09/23/2016 TECHNIQUE: Portable frontal view of the chest was obtained. FINDINGS: Spinal fusion hardware in place. The lungs are well expanded. Linear markings at the right lung base are stable from previous study and likely represents scarring. No consolidation, edema, or effusion. No pneumothorax. The cardiomediastinal silhouette is unchanged. IMPRESSION: Linear scarring at the right lung base. No acute pulmonary finding.
--- NOTE | 2018-02-28 00:13 | ED GENERAL ADULT ---
History of Present Illness General Chief Complaint: General Adult Stated Complaint: "LIGHTHEADED AND IRREAGULAR HEART BEAT AND PALP" Source: patient Exam Limitations: no limitations Vital Signs & Intake/Output Vital Signs & Intake/Output Vital Signs Date Time Temp Pulse Resp B/P B/P Pulse O2 O2 Flow FiO2 Mean Ox Delivery Rate 02/28 0304 97.5 59 18 151/70 98 Room Air 02/28 0150 97.9 58 17 145/63 97 Room Air 02/28 0002 97.8 60 18 158/67 97 Room Air ED Intake and Output 02/28 0000 02/27 1200 Intake Total Output Total Balance Patient 162 lb Weight Weight Reported by Patient Measurement Method Allergies Coded Allergies: iodine (Severe, ANAPHYLAXIS 05/11/17) shellfish derived (Severe, ANAPHYLAXIS 05/11/17) Reconcile Medications Amiodarone (Cordarone) 200 MG TABLET 1 TAB PO DAILY aflutter Start taking 200 mg PO daily from 23 October 2016. Amlodipine Besylate (Norvasc) 10 MG TABLET 1 TAB PO DAILY BLOOD PRESSURE ( Reported) Apixaban (Eliquis) 5 MG TABLET 5 MG PO BID afib Atorvastatin Calcium (Lipitor) 10 MG TABLET 1 TAB PO DAILY CHOLESTROL Cetirizine HCl (Zyrtec) 10 MG TABLET 1 TAB PO DAILY PRN ALLERGIES (Reported) Magnesium Oxide 400 MG TABLET 1 TAB PO DAILY heart lg Triage Note: TRIAGE: PATIENT TO ER FROM HOME REPORTING INTERMITTENT DIZZINESS/ LIGHTHEADEDNESS X "COUPLE DAYS," CONSTANT ALL DAY TODAY. DENIES SYNCOPE. HX AFIB, STATES "I FEEL LIKE MY HEART WAS BEATING TOO SLOW." TAKES ELIQUIS, AMIODORONE AND NORVASC. DENIES SOB/ NAUSEA. ALERT AND ORIENTED X3, SPEECH CLEAR. AMBULATES W/ STABLE GAIT. DENIES PAIN. Triage Nurses Notes Reviewed? yes Onset: Abrupt Duration: week(s): (1), changing over time, continues in ED, gone now Timing: single episode today Injury Environment: home Severity: mild, moderate No Modifying Factors: none LMP (ages 10-50): post menopausal, unknown : No Patient currently breastfeeds: No HPI: 73-year-old female history of hypertension and asthma atrial fibrillation presented for evaluation of dizziness lightheadedness and palpitations. Patient reports that she first started getting episodes of dizziness 1 week ago. The symptoms are worse when going from a sitting to a standing position. They get better at rest. Today she began to have episodes of irregular heartbeat. She felt like her heart was beating too low. She denies any chest pain or shortness of breath. This is also episodic and currently gone. On my evaluation she reports she is completely asymptomatic at this time. She never had chest pain shortness of breath no syncope. She is never had these symptoms before does not like she is going into A. fib. She is on blood thinners. She denies headache changes in vision nausea vomiting head trauma fever abdominal pain or any other associated symptoms. (Roger Rankin) Past History Travel History Traveled to [place] past 21 day No Medical History Any Pertinent Medical History? 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 , Age 83; Cause: ASHD (arteriosclerotic heart disease). FH: heart disease FATHER (HTN). , Age 87; Cause: ASHD (arteriosclerotic heart disease). FH: heart disease Relation not specified for: Patient's father is Hx Contributory? No (Roger Rankin) Review of Systems Review of Systems Constitutional: Reports: no symptoms. EENTM: Reports: no symptoms. Respiratory: Reports: no symptoms. Cardiovascular: Reports: see HPI, palpitations. GI: Reports: no symptoms. Genitourinary: Reports: no symptoms. Musculoskeletal: Reports: no symptoms. Skin: Reports: no symptoms. Neurological/Psychological: Reports: see HPI (DIZZY LIGHTHEADED). Hematologic/Endocrine: Reports: no symptoms. Immunologic/Allergic: Reports: no symptoms. All Other Systems: Reviewed and Negative (Roger Rankin) Physical Exam Physical Exam General Appearance: well developed/nourished, no apparent distress, alert, awake Head: atraumatic, normal appearance Eyes: Bilateral: normal appearance, PERRL, EOMI. Ears, Nose, Throat: hearing grossly normal Neck: normal inspection, supple, full range of motion Respiratory: normal breath sounds, chest non-tender, no respiratory distress, lungs clear Cardiovascular: regular rate/rhythm, normal peripheral pulses Peripheral Pulses: 2+ radial (R), 2+ radial (L) Gastrointestinal: soft, non-tender Back: normal inspection, normal range of motion, no vertebral tenderness Extremities: normal inspection, normal range of motion, no edema Neurologic/Psych: no motor/sensory deficits, awake, alert, oriented x 3, normal gait Skin: intact, normal color, warm/dry Lymphatic: no anterior cervical parish Core Measures ACS in differential dx? No CVA/TIA Diagnosis: No Sepsis Present: No Sepsis Focused Exam Completed? No (Roger Rankin) Progress Differential Diagnoses I considered the following diagnoses in my evaluation of the patient: [Vertigo, CVA, arrhythmia, dehydration, orthostasis, electrolyte abnormality] Plan of Care: Orders Procedure Date/time Status TROPONIN LEVEL 02/28 0300 Complete EKG 02/28 0300 Active MISTAKE 02/28 0112 Active TROPONIN LEVEL 02/27 2302 Complete LIPASE 02/27 2302 Complete HEPATIC FUNCTION PANEL 02/27 230 Complete D-DIMER 02/27 230 Complete CBC WITHOUT DIFFERENTIAL 02/27 230 Complete BASIC METABOLIC PANEL 02/27 230 Complete AMYLASE 02/27 230 Complete EKG 02/27 2253 Active Laboratory Tests 02/28/18 0258: Troponin I < 0.01 02/27/18 2353: Anion Gap 11, Estimated GFR > 60, BUN/Creatinine Ratio 17.5, Glucose 113 H, Calcium 9.9, Total Bilirubin 0.3, Direct Bilirubin 0.2, AST 42 H, ALT 48, Alkaline Phosphatase 119, Troponin I < 0.01, Total Protein 7.9, Albumin 4.3, Amylase 80, Lipase 72, D-Dimer High Sensitivty < 200, CBC w Diff NO MAN DIFF REQ , RBC 4.62, MCV 91.8, MCH 30.5, MCHC 33.3, RDW 14.2, MPV 8.6, Gran % 57.9, Lymphocytes % 34.1, Monocytes % 5.8, Eosinophils % 1.6, Basophils % 0.6, Absolute Granulocytes 3.0, Absolute Lymphocytes 1.7, Absolute Monocytes 0.3, Absolute Eosinophils 0.1, Absolute Basophils 0 Patient is here with episodes of dizziness lightheadedness and now irregular heartbeat. Patient reports that the dizziness started one week ago and has been intermittent. The irregular heartbeat started today. She has no chest pain or shortness of breath. On exam her vitals are stable and she reports she is currently completely asymptomatic. She is neurologically intact. EKG chest x- ray basic blood work obtained. Patient declines medicine. Initial blood work is not showing any severe acute findings. Initial EKG is stable. Head CT pending. Patient will get a repeat EKG and troponin. Patient signed out to Dr. Heredia. Diagnostic Imaging: Viewed by Me: Radiology Read. Discussed w/RAD: Radiology Read. CXR Impression: PATIENT: TATO HENDRIX PRESENT AGE: 73 PATIENT ACCOUNT NO: [id number] : 47 LOCATION: [facility] ORDERING PHYSICIAN: Edgar Heredia MD SERVICE DATE: 02/27/18 EXAM TYPE: RAD - XRY- PORTABLE CHEST XRAY EXAMINATION: XR PORTABLE CHEST CLINICAL INFORMATION: Chest pain COMPARISON: 09/23/2016 TECHNIQUE: Portable frontal view of the chest was obtained. FINDINGS: Spinal fusion hardware in place. The lungs are well expanded. Linear markings at the right lung base are stable from previous study and likely represents scarring. No consolidation, edema, or effusion. No pneumothorax. The cardiomediastinal silhouette is unchanged. IMPRESSION: Linear scarring at the right lung base. No acute pulmonary finding. DICTATED BY: Ortiz Lazo MD DATE/TIME DICTATED:02/27/182340 SUPER[employer] TESTING: [facility]AK DATE/TIME TRANSCRIBED:02/27/182340 CONFIDENTIAL, DO NOT COPY WITHOUT APPROPRIATE AUTHORIZATION. <Electronically signed in Other Vendor System> Initial ED EKG: normal sinus rhythm, nonspecific ST T wave chg, RBBB Prior EKG: unchanged Hand-Off Endorsed To: Edgar Heredia MD Endorsed Time: 114 Pending: CT, EKG, labs (Morales HATCH,Roger) Differential Diagnoses I considered the following diagnoses in my evaluation of the patient: Repeat EKG: unchanged (Yan PEREZ,Edgar Santoro) Departure Departure Disposition: HOME OR SELF CARE Referrals: Patient Has No Primary Care Dr (PCP/Family) Additional Instructions: REST AND DRINK PLENTLY OF FLUIDS. 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 Departure Forms: Customer Survey General Discharge Information (Roger Rankin) Departure Condition: Stable Clinical Impression Primary Impression: Dizziness Secondary Impressions: Palpitations Comments 02/28/18, 4:03AM... Pt feeling well, would like to go home... pt with benign ekg/ labs... safe for discharge. 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 PA/QUALITY IMPROVEMENT COORDINATOR (RN) Co-Sign Statement Statement: ED Attending supervision documentation- [x] I saw and evaluated the patient. I have also reviewed all the pertinent lab results and diagnostic results. I agree with the findings and the plan of care as documented in the PA's/QUALITY IMPROVEMENT COORDINATOR (RN)'s documentation. [] I have reviewed the ED Record and agree with the PA's/QUALITY IMPROVEMENT COORDINATOR (RN)'s documentation. [] Additions or exceptions (if any) to the PAs/QUALITY IMPROVEMENT COORDINATOR (RN)'s note and plan are summarized below: [] (Yan PEREZ,Edgar Santoro) Critical Care Note Critical Care Note Critical Care Time: non-applicable (Roger Rankin)
[2018-02-28 00:16] LABS: ABSOLUTE BASOPHIL COUNT 0 /CUMM (0.0-0.2); ABSOLUTE EOSINOPHIL COUNT 0.1 /CUMM (0.0-0.7); ABSOLUTE LYMPH COUNT 1.7 /CUMM (1.2-3.4); ABSOLUTE MONOCYTE COUNT 0.3 /CUMM (0.10-0.60); BASOPHIL % 0.6 % (0.0-2.0); EOSINOPHIL % 1.6 % (0-5); GRANULOCYTE % 57.9 % (42.2-75.2); HEMATOCRIT 42.4 % (37-47); MEAN CORPUSCULAR HGB 30.5 PG (27.0-31.0); MEAN CORPUSCULAR HGB CONC 33.3 G/DL (33.0-37.0); MEAN CORPUSCULAR VOLUME 91.8 FL (81.0-99.0); MEAN PLATELET VOLUME 8.6 FL (7.4-10.4); PLATELET COUNT 326 /CUMM (130-400); RBC DISTRIBUTION WIDTH 14.2 % (11.5-14.5); RED BLOOD CELL CT 4.62 /CUMM (4.20-5.40); WHITE BLOOD CELL COUNT 5.1 /CUMM (4.8-10.8)
--- NOTE | 2018-02-28 01:47 | CT SCAN REPORT ---
EXAMINATION: CT HEAD WITHOUT CONTRAST CLINICAL INFORMATION: Dizziness COMPARISON: None. TECHNIQUE: Contiguous axial imaging was performed from the skull base to vertex without intravenous contrast. DLP: 632 mGy-cm. FINDINGS: There is no evidence of acute intracranial hemorrhage or territorial infarction. No abnormal mass effect or midline shift is seen. Ornelas to white matter differentiation is well preserved. No extra-axial fluid collections are identified. No hydrocephalus. No significant volume loss. There is no abnormal attenuation within the brain parenchyma. The osseous structures and soft tissues are normal. The mastoid air cells and visualized portions of the paranasal sinuses are well aerated. IMPRESSION: No acute intracranial pathology.
[2018-02-28 03:04] VITALS: BP 151/70
== END 2018-02-28 04:24 ==
LOC: ERH 22:52
PROVIDERS: Pediatrics
DX: R42 Dizziness and giddiness (principal); R00.2 Palpitations
CPT/HCPCS: 71045; 93005; 93010